=== PATIENT | male | born 1950 | race African-American/Black ===

== ENCOUNTER 2017-09-08 00:10 | Emergency (ER) | payer MEDICARE, BC ==
[~2017-09-08] VITALS: Ht 182.9 cm; Wt 70.0 kg
[2017-09-08 00:12] VITALS: BP 229/99; PULSE 85; RESP 16; TEMP 98.1; O2SAT 96
[2017-09-08] MEDS ORDERED: cloNIDine HCL 0.2 MG TAB PO ONE (00:45)
[2017-09-08 00:51] VITALS: BP 206/94; PULSE 83; RESP 18; O2SAT 97
[2017-09-08 01:30] VITALS: BP 186/86; PULSE 87; RESP 18; O2SAT 97
--- NOTE | 2017-09-08 01:30 | PD ---
HPI Chief Complaint: Hypertension Time Seen by Provider: 00:45 Travel History International Travel<30 days: No Contact w/Intl Traveler<30days: No Traveled to known affect area: No History of Present Illness HPI 66-year-old male came to the emergency room with his for hypertension and prescription refill. Patient says that they're from [place] and they came yesterday and patient forgot to bring his clonidine. His blood pressure in triage was 225 systolic. Patient denies any headache, chest pain or blurred vision. Patient has end-stage renal disease and got dialyzed yesterday morning. He is here to get kidney transplant. [facility] Past Medical History Narrative Medical List of his past medical, surgical, social and family history is reviewed from the nursing note. Cardiovascular Problems: Yes (HTN) Diabetes: Yes Patient Takes Glucophage: No Past Surgical History Cholecystectomy: Yes Genitourinary Surgery: Yes Other Surgery: Yes (THYROIDECTOMY) Social History Alcohol Use: No Tobacco Use: No Substance Use: No Allergies-Medications (Allergen,Severity, Reaction): Coded Allergies: No Known Allergies (Unverified Adverse Reaction, Unknown, 09/08/17) Comments No known drug allergies. Reported Meds & Prescriptions Reported Meds & Active Scripts Active Clonidine (Clonidine HCl) 0.1 Mg Tab 0.1 Mg PO BID PRN Narrative Medication List of his home medications reviewed from the nursing note. Review of Systems Except as stated in HPI: all other systems reviewed are Neg Physical Exam Narrative GENERAL: Awake, alert, no obvious distress SKIN: Focused skin assessment warm/dry. Right upper extremity shunt. HEAD: Atraumatic. Normocephalic. EYES: Pupils equal and round. No scleral icterus. No injection or drainage. ENT: No nasal bleeding or discharge. Mucous membranes pink and moist. NECK: Trachea midline. No JVD. CARDIOVASCULAR: Regular rate and rhythm. No murmur appreciated. RESPIRATORY: No accessory muscle use. Clear to auscultation. Breath sounds equal bilaterally. GASTROINTESTINAL: Abdomen soft, non-tender, nondistended. Hepatic and splenic margins not palpable. MUSCULOSKELETAL: No obvious deformities. No clubbing. No cyanosis. No edema. NEUROLOGICAL: Awake and alert. No obvious cranial nerve deficits. Motor grossly within normal limits. Normal speech. PSYCHIATRIC: Appropriate mood and affect; insight and judgment normal. Data Data Last Documented VS Orders Orders Clonidine (Catapres) (09/08/17 00:45) Ed Discharge Order (09/08/17 01:45) [facility] Medical Decision Making Medical Screen Exam Complete: Yes Emergency Medical Condition: Yes Medical Record Reviewed: Yes Differential Diagnosis Essential hypertension Narrative Course 1:43 AM patient was given 0.2 mg of clonidine. I was just told that his blood pressure is 185 systolic. Coming down from comfortable discharging him home. He will go home with one week of clonidine prescription. Procedures EKG Prior to Arrival: No Diagnosis Primary Impression: Essential hypertension Additional Impression: Noncompliance with medications Referrals: Primary Care Physician Additional Instructions: Please take your medications like is supposed to. I'm missing your blood pressure medications of her getting them would be disastrous since her blood pressure was very high today. Per the prescription and take it as prescribed. Med/Other Pt SpecificInfo: Prescription(s) given Scripts Clonidine (Clonidine) 0.1 Mg Tab 0.1 MG PO BID Y for SBP> OR = 180, DBP> OR = 100, #14 TAB 0 Refills Prov: Estephanie Hernández MD 09/08/17 Disposition: 01 DISCHARGE HOME Condition: Stable Estephanie Hernández MD Sep 08, 2017 01:30
[2017-09-08] MEDS ORDERED: CLON0.1T PO (01:45)
== END 2017-09-08 02:04 | disposition home or self-care (01) ==
LOC: NEPE 00:10
DX: Z76.0 Encounter for issue of repeat prescription (principal); E11.22 Type 2 diabetes mellitus with diabetic chronic kidney disease; I12.0 Hypertensive chronic kidney disease with stage 5 chronic kidney disease or end stage renal disease; N18.6 End stage renal disease; Z99.2 Dependence on renal dialysis
CPT/HCPCS: 99283

== ENCOUNTER 2018-04-23 21:26 | Inpatient (IN) ==
[2018-04-23] MEDS ORDERED: Acetaminophen 325 MG Tablet PO PRN (22:29)
--- NOTE | 2018-04-23 23:40 | P.HPIM ---
History of Present Illness Service: [facility] Hospitalists Primary Care Physician: UNKNOWN Chief Complaint: Mr. Carvajal is here for a kidney transplant History of Present Illness: Mr. Carvajal is a 67 year-old male with a history of ESRD, hypertension, and diet-controlled type 2 diabetes mellitus who presented to the hospital under the hospitalist service for renal transplant. The patient is seen in his hospital room. He reports that he has been on HD for 5 years and makes only drops of urine now. He denies any recent fever, chills, chest pain, shortness of breath, nausea, vomiting, diarrhea, or pain. - Diagnosis (1) End stage renal disease (2) Diabetes mellitus type 2, diet-controlled (3) History of hypertension - Inpatient Certification If this patient has been admitted as an Inpatient: I certify that the inpatient services were ordered in accordance with Medicare regulations governing the order. This includes certification that hospital inpatient services are reasonable and necessary and in the case of services not specified as inpatient-only under 42 CFR 419.22(n), that they are appropriately provided as inpatient services in accordance to with the 2-midnight benchmark under 43 CFR 412.3(e) Estimated Total Length of Stay (Days): 5 Plans for Post Hospital Care: Home Review of Systems All other systems reviewed negative except as stated in HPI [facility] - History History Provided By: Patient, Family Member - Medical History Medical History: Medical History (Last Updated 04/24/18 @ 00:31 by BOB Dominique) Diabetes mellitus type 2, diet-controlled (Chronic) End stage renal disease (Chronic) Renal osteodystrophy (Chronic) History of hepatitis C (Inactive) Diverticulosis (Chronic) History of bladder cancer (Inactive) History of thyroid cancer (Inactive) Hypertension - Surgical History Surgical History: Surgical History (Last Updated 04/24/18 @ 00:41 by BOB Dominique) History of bladder surgery AV fistula Onset Date: ~2013 History of laparoscopic cholecystectomy Onset Date: ~2014 History of lithotripsy History of thyroidectomy Onset Date: ~2014 - Family History Family History: Family History (Last Updated 04/24/18 @ 00:38 by BOB Dominique) Mother Family history of acute myocardial infarction Diabetes mellitus Father Family history of acute myocardial infarction - Tobacco History Second Hand Smoke Exposure: No Tobacco Use In Past 30 Days: No Smoking Status: Former smoker Tobacco Type: Cigarettes - Alcohol History How Often Do You Have a Drink Containing Alcohol: Never - Substance Use History Substance History: Past History (has not used since he returned from the [place]) Medications and Allergies Active Medications: Active Medications Acetaminophen (Tylenol) 650 mg PO Q4H PRN PRN Reason: Temp > 100.4 Bisacodyl (Dulcolax Supp) 10 mg RECTAL DAILY PRN PRN Reason: SEVERE CONSITIPATION Sodium Chloride (Ns Inj) 1,000 mls @ 40 mls/hr IV.CONT .Q24H MO Ondansetron HCl (Zofran Inj) 4 mg IV.PUSH Q6H PRN PRN Reason: NAUSEA OR VOMITING Sennosides (Senokot) 17.2 mg PO Q12H PRN PRN Reason: Moderate Constipation Allergies Allergy/AdvReac Type Severity Reaction Status Date / Time No Known Allergies AdvReac Unknown Uncoded 03/28/18 15:19 Home Medications Medication Instructions Recorded Confirmed Type B complex with C#20-folic acid 1 cap PO DAILY 04/23/18 04/23/18 History [[place] Caps] amlodipine 10 PO DAILY 04/23/18 History carvedilol 25 mg PO BID 04/23/18 04/23/18 History cinacalcet [Sensipar] 90 mg PO DAILY 04/23/18 04/23/18 History clonidine HCl 0.2 mg PO TID 04/23/18 04/23/18 History hydralazine 50 mg PO TID 04/23/18 04/23/18 History isosorbide dinitrate 10 mg PO TID 04/23/18 04/23/18 History levothyroxine 200 mcg PO DAILY 04/23/18 04/23/18 History pravastatin 20 mg PO DAILY 04/23/18 04/23/18 History sucroferric oxyhydroxide [Velphoro] 500 mg PO TID 04/23/18 04/23/18 History Exam Vital signs: Intake & Output 04/23/18 04/23/18 04/24/18 06:59 18:59 06:59 Weight 67 kg Other: Weight On Admission 67 kg - Constitutional no acute distress, average body habitus - Routine HEENT Exam Head: Present: normocephalic, atraumatic - Routine Neck Exam Present: supple. Absent: JVD - Routine Respiratory Exam Present: CTA bilaterally. Absent: wheezes, crackles - Routine Cardiovascular Exam Present: RRR, S1, S2. Absent: murmur - Routine Abdominal Exam Present: soft, normoactive bowel sounds. Absent: tenderness, distended - Routine Extremities Exam Present: pulses intact. Absent: edema - Routine Skin Exam Present: intact, dry, warm - Routine Neurological Exam Present: alert, oriented X3, normal speech Caprini VTE Risk Assessment Caprini VTE Risk Assessment: Moderate/High Risk (score >= 2) Caprini Risk Assessment Model: Point Value = 1 Point Value = 2 Point Value = 3 Point Value = 5 Age 41-60 Minor surgery BMI > 25 kg/m2 Swollen legs Varicose veins or History of unexplained or recurrent spontaneous Oral contraceptives or hormone replacement Sepsis (< 1 month) Serious lung disease, including pneumonia (< 1 month) Abnormal pulmonary function Acute myocardial infarction Congestive heart failure (< 1 month) History of inflammatory bowel disease Medical patient at bed rest Age 61-74 Arthroscopic surgery Major open surgery (> 45 min) Laparoscopic surgery (> 45 min) Malignancy Confined to bed (> 72 hours) Immobilizing plaster cast Central venous access Age >= 75 History of VTE Family history of VTE Factor V Leiden Prothrombin [id number] Lupus anticoagulant Anticardiolipin antibodies Elevated serum homocysteine Heparin-induced thrombocytopenia Other congenital or acquired thrombophilia Stroke (< 1 month) Elective arthroplasty Hip, pelvis, or leg fracture Acute spinal cord injury (< 1 month) Prophylaxis Regimen: Total Risk Factor Score Risk Level Prophylaxis Regimen 0-1 Low Early ambulation 2 Moderate Order ONE of the following: *Sequential Compression Device (SCD) *Heparin 5000 units SQ BID 3-4 Higher Order ONE of the following medications: *Heparin 5000 units SQ TID *Enoxaparin/Lovenox 40 mg SQ daily (WT < 150 kg, CrCl > 30 mL/min) *Enoxaparin/Lovenox 30 mg SQ daily (WT < 150 kg, CrCl > 10-29 mL/min) *Enoxaparin/Lovenox 30 mg SQ BID (WT < 150 kg, CrCl > 30 mL/min) AND/OR *Sequential Compression Device (SCD) 5 or more Highest Order ONE of the following medications: *Heparin 5000 units SQ TID (Preferred with Epidurals) *Enoxaparin/Lovenox 40 mg SQ daily (WT < 150 kg, CrCl > 30 mL/min) *Enoxaparin/Lovenox 30 mg SQ daily (WT < 150 kg, CrCl > 10-29 mL/min) *Enoxaparin/Lovenox 30 mg SQ BID (WT < 150 kg, CrCl > 30 mL/min) AND *Sequential Compression Device (SCD) Assessment and Plan - Assessment (1) End stage renal disease Code(s): N18.6 - End stage renal disease Status: Chronic (2) Diabetes mellitus type 2, diet-controlled Code(s): E11.9 - Type 2 diabetes mellitus without complications Status: Chronic (3) History of hypertension Code(s): Z86.79 - Personal history of other diseases of the circulatory system Status: Chronic - Plan Mr. Carvajal is a pleasant 67-year-old male with a history of end-stage renal disease, diet controlled type 2 diabetes mellitus, and hypertension who presented to [facility] for renal transplantation with admission to the [facility] hospitalist service. End-stage renal disease -Consult renal transplant team -Discussed case with Dr. Melton Type 2 Diabetes Mellitus - Accu-Cheks before meals and at bedtime with low-dose NovoLog sliding scale coverage - Hypoglycemia protocol - Monitor trends and blood glucose readings and adjust treatments as indicated Hypertension - resume home medications - monitor trends in blood pressure reading and adjust treatments accordingly DVT prophylaxis - SCDs/TEDs Discussed Condition With: Dr. Melton, RN, Dr. Dominguez, patient, and patient's H&P: Quality - VTE Deep Vein Thrombosis/Pulmonary Embolism Present on Admission: No
--- NOTE | 2018-04-23 23:57 | P.CON ---
History of Present Illness Service: Transplant Surgery Consult date: 04/23/18 Primary Care Provider: UNKNOWN Chief Complaint: Admit for possible donor renal transplant History of Present Illness: 67 yom with ESRD due to Htn/DM. Presents for possible donor renal transplant from an EBV+/ CMV+ donor that is deemed PHS high risk due to hemodilution. Last HD was Tuesday04/21/18 Review of Systems Comments: makes drops of urine only PMFSH - History History Provided By: Patient, Family Member - Medical History Medical History: Medical History (Last Updated 04/23/18 @ 23:59 by Jason Melton MD) Diabetes mellitus type 2, diet-controlled (Chronic) History of hypertension (Chronic) End stage renal disease (Chronic) Renal osteodystrophy (Chronic) History of hepatitis C (Inactive) Diverticulosis (Chronic) History of bladder cancer (Inactive) History of thyroid cancer (Inactive) - Surgical History Surgical History: Surgical History (Last Reviewed 04/23/18 @ 23:46 by Jason Melton MD) AV fistula Onset Date: ~2013 History of laparoscopic cholecystectomy Onset Date: ~2014 History of lithotripsy History of thyroidectomy Onset Date: ~2014 History of transurethral resection of prostate Onset Date: ~2013 - Family History Family History: Family History (Last Reviewed 04/23/18 @ 23:46 by Jason Melton MD) Mother Family history of acute myocardial infarction - Tobacco History Second Hand Smoke Exposure: No Tobacco Use In Past 30 Days: No Smoking Status: Former smoker Tobacco Type: Cigarettes Packs Per Day: 1 (1 PPD x 30 years) Years Smoked: 30 - Alcohol History How Often Do You Have a Drink Containing Alcohol: Never - Substance Use History Substance History: Past History Medications and Allergies Active Medications: Active Medications Acetaminophen (Tylenol) 650 mg PO Q4H PRN PRN Reason: Temp > 100.4 Bisacodyl (Dulcolax Supp) 10 mg RECTAL DAILY PRN PRN Reason: SEVERE CONSITIPATION Sodium Chloride (Ns Inj) 1,000 mls @ 40 mls/hr IV.CONT .Q24H MO Ondansetron HCl (Zofran Inj) 4 mg IV.PUSH Q6H PRN PRN Reason: NAUSEA OR VOMITING Sennosides (Senokot) 17.2 mg PO Q12H PRN PRN Reason: Moderate Constipation Allergies Allergy/AdvReac Type Severity Reaction Status Date / Time No Known Allergies AdvReac Unknown Uncoded 03/28/18 15:19 Home Medications Medication Instructions Recorded Confirmed Type B complex with C#20-folic acid 1 cap PO DAILY 04/23/18 04/23/18 History [[place] Caps] amlodipine 10 PO DAILY 04/23/18 History carvedilol 25 mg PO BID 04/23/18 04/23/18 History cinacalcet [Sensipar] 90 mg PO DAILY 04/23/18 04/23/18 History clonidine HCl 0.2 mg PO TID 04/23/18 04/23/18 History hydralazine 50 mg PO TID 04/23/18 04/23/18 History isosorbide dinitrate 10 mg PO TID 04/23/18 04/23/18 History levothyroxine 200 mcg PO DAILY 04/23/18 04/23/18 History pravastatin 20 mg PO DAILY 04/23/18 04/23/18 History sucroferric oxyhydroxide [Velphoro] 500 mg PO TID 04/23/18 04/23/18 History Physical Exam Vital signs: Intake & Output 04/23/18 04/23/18 04/24/18 06:59 18:59 06:59 Weight 67 kg Other: Weight On Admission 67 kg - Constitutional no acute distress - Routine HEENT Exam Head: Present: normocephalic, atraumatic Eye: Present: EOMI - Routine Neck Exam Present: supple, full ROM - Routine Respiratory Exam Present: CTA bilaterally - Routine Cardiovascular Exam Present: RRR, S1, S2 - Routine Abdominal Exam Present: soft, normoactive bowel sounds - Routine Exam Comments: No inguinal hernias or testicular masses noted - Routine Extremities Exam Present: pulses intact (No edema noted. No clubbing/ cyanosis/ or edema) Assessment and Plan - Assessment (1) Diabetes mellitus type 2, diet-controlled Code(s): E11.9 - Type 2 diabetes mellitus without complications Status: Chronic (2) History of hypertension Code(s): Z86.79 - Personal history of other diseases of the circulatory system Status: Chronic (3) End stage renal disease Code(s): N18.6 - End stage renal disease Status: Chronic Plan: Dutch Carvajal has ESRD secondary to htn/DM, and is being admitted for possible kidney transplantation. The patient will be consented for procedure and transfusion A PHS increased Risk Consent is required, and has been completed. A surgical consent has been completed.. The patient is being admitted to the Hospitalist Service. The Transplant Nephrology Service will be consulted. The patient will be assigned to Case Management/Inpatient Status.
[2018-04-24] MEDS ORDERED: ceFAZolin 2 GM IV; once IV.SIG SCH (00:30)
[2018-04-24] MEDS ORDERED: Dextrose 50% in Water 50 ML Vial IV.PUSH PRN ×2 (00:46→13:36)
[2018-04-24 00:49] LABS: Baso % (Auto) 0.8 % (0.0-2.0); Eos # (Auto) 0.3 th/mm3 (0.0-0.4); Eos % (Auto) 4.3 % (0.0-4.0); Hematocrit 31.2 % (39.0-51.0); Hemoglobin 10.5 gm/dL (13.0-17.0); Lymph # (Auto) 2.2 th/mm3 (1.0-4.8); Lymph % (Auto) 36.8 % (9.0-44.0); Mean Corpuscular HGB Conc 33.7 % (32.0-36.0); Mean Corpuscular Hemoglobin 32.7 pg (27.0-34.0); Mean Corpuscular Volume 97.1 fL (80.0-100.0); Mean Platelet Volume 8.9 fL (7.0-11.0); Mono # (Auto) 0.4 th/mm3 (0.0-0.9); Mono % (Auto) 6.5 % (0.0-8.0); Neut # (Auto) 3.1 th/mm3 (1.8-7.7); Neut % (Auto) 51.6 % (16.0-70.0); Platelet Count 177 th/mm3 (150-450); Red Blood Count 3.21 mil/mm3 (4.50-5.90); Red Cell Distribution Width 14.4 % (11.6-17.2); White Blood Count 5.9 th/mm3 (4.0-11.0)
[2018-04-24] MEDS ORDERED: ANTITHYMOCYTE IG IV.SIG SCH (01:00)
[2018-04-24] MEDS ORDERED: SODIUM CHLOR 0.9% IV.SIG SCH (01:00)
[2018-04-24] MEDS ORDERED: MethylPREDNISolone Sod Suc Inj 500 MG in Sodium Chlor 0.9% Inj 100 ML IV.SIG SCH (01:00)
[2018-04-24] MEDS ORDERED: amLODIPine 10 MG Tablet PO ONE (01:01)
[2018-04-24 01:05] LABS: Activated Partial Thrombo Time 28.1 sec (24.3-30.1); INR 1.1 Ratio; Prothrombin Time 11.4 sec (9.8-11.6)
[2018-04-24 01:08] LABS: Alkaline Phosphatase 67 U/L (45-117); Total Protein 7.6 g/dL (6.4-8.2)
[2018-04-24] MEDS ORDERED: hydrALAZINE 10 MG Tablet PO SCH (01:15)
[2018-04-24] MEDS ORDERED: Carvedilol 12.5 MG Tablet PO ONE (01:15)
[2018-04-24 01:25] LABS: Alanine Aminotransferase 20 U/L (12-78); Albumin 3.6 g/dL (3.4-5.0); Anion Gap 13 meq/L (5-15); Aspartate Aminotransferase 26 U/L (15-37); Blood Urea Nitrogen 56 mg/dL (7-18); Calcium 8.5 mg/dL (8.5-10.1); Carbon Dioxide 24.1 meq/L (21.0-32.0); Chloride 105 meq/L (98-107); Glomerular Filtration Rate 5 mL/min (>89); Glucose,Random 80 mg/dL (74-106); Potassium 4.7 meq/L (3.5-5.1); Sodium 142 meq/L (136-145)
--- NOTE | 2018-04-24 01:27 | XR ---
EXAM DATE: 04/24/2018 1:04 AM EDT AGE/SEX: 67 years / Male INDICATIONS: Short of breath. CLINICAL DATA: This is the patient's initial encounter. Patient reports that signs and symptoms have been present for 1 day and indicates a pain score of 0/10. MEDICAL/SURGICAL HISTORY: None. Umbilical hernia repair. COMPARISON: No prior exams available for comparison. FINDINGS: AP and lateral views of the chest demonstrate the lungs to be symmetrically aerated without evidence of mass, infiltrate or effusion. The heart is moderately enlarged with panchamber configuration. The central bronchopulmonary markings are well delineated.. Osseous structures are intact. CONCLUSION: 1. The lungs are clear. 2. Panchamber cardiomegaly. Electronically signed by: Kapil Dominguez MD 04/24/2018 1:26 AM EDT
[2018-04-24 02:20] LABS: Hepatitis A IgM Antibody Nonreactive (Nonreactive)
[2018-04-24 02:22] LABS: Hepatitits B Surface Antigen Nonreactive (Nonreactive)
[2018-04-24] MEDS: Sod Chloride 0.9% Inj 1,000 ML IV.CONT SCH ×2 (06:36→15:37)
[2018-04-24] MEDS ORDERED: Cisatracurium Inj 20 MG/10 ML Vial ONE ×2 (07:43→10:07)
[2018-04-24] MEDS ORDERED: MethylPREDNISolone Sod Succinate Inj 125 MG/2 ML Vial ONE ×2 (07:46→07:51)
[2018-04-24] MEDS ORDERED: Furosemide Inj 10 ML ONE (07:51)
[2018-04-24] MEDS ORDERED: Heparin - SQ 10,000 UNITS/ML Vial SQ ONE (07:51)
[2018-04-24] MEDS ORDERED: Heparin 10,000 UNITS/10 ML Vial (for IV use) ONE (07:52)
[2018-04-24] MEDS ORDERED: Insulin NovoLOG Aspart Correctional Sugar Inj SQ SCH (08:00)
[2018-04-24] MEDS: Vitamin B Complex/Vit C/Folic Tablet PO SCH (09:41)
[2018-04-24] MEDS: Carvedilol 12.5 MG Tablet PO SCH ×2 (09:41→20:23)
[2018-04-24] MEDS: amLODIPine 10 MG Tablet PO SCH (09:42)
[2018-04-24 09:49] LABS: ABG Base Excess -3.4 mmol/L (-2-2); ABG PCO2 38 mmHg (38-42); ABG PO2 239 mmHG (61-120)
[2018-04-24] MEDS ORDERED: Calcium Chloride Inj 1 GM/10 ML Syringe ONE (10:21)
--- NOTE | 2018-04-24 10:36 | ECG ---
Date Performed: 04/24/2018 Time Performed: 00:14:10 PTAGE: 67 years EKG: Sinus rhythm with 1st degree A-V block Left axis deviation Lateral T wave changes are nonspecific Abnormal ECG NO PREVIOUS TRACING DOCTOR: Juve Whitt Interpretating Date/Time 04/24/2018 10:35:19
--- NOTE | 2018-04-24 10:57 | P.PN ---
Subjective Interval history: Follow-up end-stage renal disease. Seen in PACU patient has no complaints. Discussed with nursing has required 3 doses of antihypertensives (IV labetalol and IV hydralazine). Case discussed with Dr. Melton Physical Exam Vital signs: Vital Signs 04/23/18 23:07 04/24/18 01:04 04/24/18 02:00 Temperature 98.1 F Pulse Rate 80 82 82 Respiratory Rate Blood Pressure 194/98 H Pulse Oximetry 95 04/24/18 03:00 04/24/18 04:00 04/24/18 05:00 Temperature 97.6 F Pulse Rate 75 79 75 Respiratory Rate Blood Pressure 175/96 H Pulse Oximetry 97 04/24/18 06:00 04/24/18 07:04 04/24/18 08:00 Temperature 97.8 F Pulse Rate 77 79 76 Respiratory Rate 14 Blood Pressure 184/99 H Pulse Oximetry 97 Intake & Output 04/23/18 04/24/18 04/24/18 18:59 06:59 18:59 Intake Total 120 / 120 Output Total 0 / 0 Balance 120 / 120 Weight 67 kg Intake: Oral 120 / 120 Output: Urine 0 / 0 Other: Weight On Admission 67 kg Narrative: - Constitutional no acute distress, average body habitus - Routine HEENT Exam Head: Present: normocephalic, atraumatic - Routine Neck Exam Present: supple. Absent: JVD - Routine Respiratory Exam Present: CTA bilaterally. Absent: wheezes, crackles - Routine Cardiovascular Exam Present: RRR, S1, S2. Absent: murmur - Routine Abdominal Exam Present: soft, normoactive bowel sounds. Absent: tenderness, distended dry dressing right lower with HARISH drain. Campbell catheter in place - Routine Extremities Exam Present: pulses intact. Absent: edema - Routine Skin Exam Present: intact, dry, warm - Routine Neurological Exam Present: alert, oriented X3, normal speech - Urinary Catheter Management Indwelling Urethral Catheter Cath placed during this visit: yes Urethral indwelling: Yes Reason for continuing: Hourly intake/output Insertion date: 04/24/18 Insertion time: 13:00 Results - Labs CBC & Chem 7: 04/24/18 14:30 04/24/18 14:30 Laboratory Results - last 24 hr 04/24/18 04/24/18 04/24/18 00:30 00:30 00:30 WBC 5.9 RBC 3.21 L Hgb 10.5 L Hct 31.2 L MCV 97.1 MCH 32.7 MCHC 33.7 RDW 14.4 Plt Count 177 MPV 8.9 Neut % (Auto) 51.6 Lymph % (Auto) 36.8 Lyon % (Auto) 6.5 Eos % (Auto) 4.3 H Baso % (Auto) 0.8 Neut # (Auto) 3.1 Lymph # (Auto) 2.2 Lyon # (Auto) 0.4 Eos # (Auto) 0.3 Baso # (Auto) 0.0 WBC Differential . Differential Comment Auto diff final PT 11.4 INR 1.1 APTT 28.1 Puncture Site Patient Temperature O2 Saturation ABG pH ABG pCO2 ABG pO2 ABG HCO3 ABG O2 Content ABG Base Excess ABG Methemoglobin Hemoglobin Carboxyhemoglobin O2 Delivery Device Inspired O2 Critical Value Sodium 142 Potassium 4.7 Chloride 105 Carbon Dioxide 24.1 Anion Gap 13 BUN 56 H Creatinine 12.31 H* Estimated GFR 5 L POC Glucose Random Glucose 80 Calcium 8.5 Total Bilirubin 0.5 AST 26 ALT 20 Alkaline Phosphatase 67 Total Protein 7.6 Albumin 3.6 Hepatitis A IgM Ab Hep Bs Antigen Hep B Core IgM Ab Hep C IgG Ab HIV 1&2 Ab/P24 Ag 4thGn Blood Type Blood Type Confirm Blood Type Recheck Antibody Screen MTS Gel Crossmatch Bld Prod Order Comment 04/24/18 04/24/18 04/24/18 00:30 00:30 00:34 WBC RBC Hgb Hct MCV MCH MCHC RDW Plt Count MPV Neut % (Auto) Lymph % (Auto) Lyon % (Auto) Eos % (Auto) Baso % (Auto) Neut # (Auto) Lymph # (Auto) Lyon # (Auto) Eos # (Auto) Baso # (Auto) WBC Differential Differential Comment PT INR APTT Puncture Site Patient Temperature O2 Saturation ABG pH ABG pCO2 ABG pO2 ABG HCO3 ABG O2 Content ABG Base Excess ABG Methemoglobin Hemoglobin Carboxyhemoglobin O2 Delivery Device Inspired O2 Critical Value Sodium Potassium Chloride Carbon Dioxide Anion Gap BUN Creatinine Estimated GFR POC Glucose Random Glucose Calcium Total Bilirubin AST ALT Alkaline Phosphatase Total Protein Albumin Hepatitis A IgM Ab Nonreactive Hep Bs Antigen Nonreactive Hep B Core IgM Ab Nonreactive Hep C IgG Ab Reactive H HIV 1&2 Ab/P24 Ag 4thGn Nonreactive Blood Type B Positive Blood Type Confirm B Positive Blood Type Recheck Not needed Antibody Screen Negative MTS Gel Crossmatch See Detail Bld Prod Order Comment 04/24/18 04/24/18 09:40 10:28 WBC RBC Hgb Hct MCV MCH MCHC RDW Plt Count MPV Neut % (Auto) Lymph % (Auto) Lyon % (Auto) Eos % (Auto) Baso % (Auto) Neut # (Auto) Lymph # (Auto) Lyon # (Auto) Eos # (Auto) Baso # (Auto) WBC Differential Differential Comment PT INR APTT Puncture Site Art line Patient Temperature 98.6 O2 Saturation 96 ABG pH 7.37 L ABG pCO2 38 ABG pO2 239 H ABG HCO3 21 L ABG O2 Content 14.0 ABG Base Excess -3.4 L ABG Methemoglobin 1.8 Hemoglobin 9.9 L Carboxyhemoglobin 1.2 O2 Delivery Device Ventilator Inspired O2 21 Critical Value No Sodium Potassium Chloride Carbon Dioxide Anion Gap BUN Creatinine Estimated GFR POC Glucose 121 H Random Glucose Calcium Total Bilirubin AST ALT Alkaline Phosphatase Total Protein Albumin Hepatitis A IgM Ab Hep Bs Antigen Hep B Core IgM Ab Hep C IgG Ab HIV 1&2 Ab/P24 Ag 4thGn Blood Type Blood Type Confirm Blood Type Recheck Antibody Screen MTS Gel Crossmatch Bld Prod Order Comment - Imaging Impressions Chest X-Ray 04/23/18 00:00 CONCLUSION: 1. The lungs are clear. 2. Panchamber cardiomegaly. - Procedures 1. donor renal transplant , with renal allograft to [facility]'s right iliac fossa.. please use 22 modifier due to case being much harder than average due to severe atherosclerosis of the iliac artery 2. Complex backbench preparation of right donor kidney 3. Placement of ureteral stent Assessment and Plan - Plan Mr. Carvajal is a pleasant 67-year-old male with a history of end-stage renal disease, diet controlled type 2 diabetes mellitus, and hypertension who presented to [facility] for renal transplantation with admission to the [facility] hospitalist service. End-stage renal disease on hemodialysis. Status post renal transplant. 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 Dc campbell and Pharmacological prophylaxis per transplant surgeon. Type 2 Diabetes Mellitus - Accu-Cheks before meals and at bedtime with low-dose NovoLog sliding scale coverage - Hypoglycemia protocol - Monitor trends and blood glucose readings and adjust treatments as indicated Hypertension - resume home medications Coreg and Norvasc. RN to verify home meds - monitor trends in blood pressure reading and adjust treatments accordingly. IV hydralazine and p.o. clonidine as needed DVT prophylaxis - SCDs/TEDs Progress Note: Quality - VTE Deep Vein Thrombosis/Pulmonary Embolism Present on Admission: No
[2018-04-24] MEDS ORDERED: Lidocaine PF 1% Inj 5 ML Syringe INFILTRATN ONE (12:00)
[2018-04-24] MEDS ORDERED: hydrALAZINE HCl Inj 20 MG/ML Vial IV.PUSH ONE (12:00)
[2018-04-24] MEDS ORDERED: Labetalol HCl Inj 100 MG/20 ML Vial IV.CONT ONE (12:00)
[2018-04-24] MEDS ORDERED: Phenylephrine/NS 1000 MCG/10ML Syringe IV.PUSH ONE (12:00)
[2018-04-24 12:43] LABS: ABG Base Excess -6.5 mmol/L (-2-2); ABG PCO2 37 mmHg (38-42); ABG PO2 223 mmHG (61-120)
[2018-04-24] MEDS ORDERED: Sodium Bicarbonate 8.4% Inj 50 MEQ/50 ML Syringe ONE (13:16)
[2018-04-24] MEDS ORDERED: Morphine Inj 4 MG/ML Vial IV.SIG ONE (13:36)
[2018-04-24] MEDS ORDERED: Naloxone Inj 0.4 MG/ML Vial IV.PUSH PRN (13:36)
[2018-04-24] MEDS ORDERED: Morphine Inj 30 MG/30 ML PCA.VIAL PCA PRN (13:36)
--- NOTE | 2018-04-24 14:11 | P.OP ---
- Preoperative Diagnosis (1) End stage renal disease (2) Diabetes mellitus type 2, diet-controlled - Postoperative Diagnosis (1) End stage renal disease Date of procedure: 04/24/18 Procedure: 1. donor renal transplant, right renal allograft to recipient's right lower quadrant. Please use 22 modifier as case was much harder than average due to severe atherosclerosis of iliac artery. 2. Back bench preparation of renal vessels and ureter 3. Back Bench venous reconstruction X 2 4. placement of ureteral stent. Implants: 6 Fr 12 cm double J ureteral stent from transplant graft into bladder Surgeon: Valentin Chance MD, 1st Socially Responsible Investment Adviser to Jaylen Melton MD Socially Responsible Investment Adviser: Valentin Chance Estimated blood loss (mL): 200 IV fluids (mL): 2,500 Pathology: none sent Operation and Findings: Intra-Op Findings: very atherosclerotic iliac arteries and distal aortal, good flow into and out of renal allograft after reperfusion After informed consent was obtained from the patient prior to surgery and the ABO was reviewed via primary source times two for each the recipient and donor prior to surgery today, the recipient was brought into the OR and safely placed under general endotracheal anesthesia after the debriefing was performed. The ABO verification form was in the room with the patient and the renal allograft. The DonorNet file was checked and the donor ABO verified X 2 and recorded onto the ABO form with the Candidate ABO verified X 2 in EPIC and recorded on the ABO verification form. The candidate's name was seen on the match run in DonorNet. As the anesthesia service was preparing the patient, we prepared the renal allograft on the back table by removing all extraneous connective tissue. There was a single artery, vein and ureter of sufficient length. Since this was a right kidney, the cephalad and caudal cava was stabled. The cephalad kidney stable line did not hold and we sutured it with prolene. I repaired two small openings in the renal vein proper with 6-0 prolend on BV needle. The kidney was stored in sterile ice with preservative solution and replaced in sterile container with top and in sterile bowel bag. The patient had a Hou catheter placed sterilely, and the abdomen was prepped and draped in the usual sterile fashion. We then did our standard surgical time out, reviewing the patient, allergies, antibiotics, operation to be performed, immunosuppression medications and ABO of the donor and recipient. All agreed and we proceeded. The anesthesia service acknowledged the administration of the IV Solumedrol 250 mg and Thymoglobulin infusion. We then made the right OR left lower quadrant oblique incision from an area about two centimeters medial to the anterior iliac spine to the pubic symphysis. We were able to go through the skin, subcutaneous tissue, fascia, and into the right retroperitoneal space. We repaired two small openings in the peritoneum. We kept the cord structures mobilized out of harm's way. We spared the epigastric vessels. We had excellent exposure of the common and external iliac artery and vein and carefully dissected these free of the nerve, keeping this lateral and out of harm's way. The artery was very atherosclerotic throughout its entire length from the distal aorta to the distal external iliac. We found two very small areas where we felt safest to clamp. The vein was deep but normal otherwise. We gave the patient 2,000 units of intravenous heparin, allowed this to circulate for three minutes. We used a Satinsky clamp on the iliac vein and opened the vein with the 11-blade, Degroot scissors, and Hepflush. We anastomosed the donor renal vein to the recipient right external iliac vein using 5-0 Prolene in our standard technique. When this venous anastomosis was completed, we went ahead and placed a DeBakey vascular clamp on the proximal common iliac artery and distal right external iliac artery, opened into the iliac artery with the 11-blade. The 4 arterial punch times four was used, so we had a nice opening of the anterior artery wall to accept the renal artery. The superior / superio-lateral wall was very disease, but intact. Then we used 6-0 Prolene, placing a cephalad and caudal stitch, and then we were able to anastomose the arteries under direct visualization. We needed to use a couple of interrupted sutures in the cephalad lateral position and were able to use a continuous suture the remainder of the anastomosis. When the arterial anastomosis was complete and tied, we went ahead and placed gentle vascular bull -dog clamps on the renal artery and renal vein proper, where we removed first the iliac vein clamps and allowed for flow across the venous anastomosis, and there was with excellent hemostasis. We then allowed for the distal artery to open. The anastomotic area opened nicely, signifying no technical issues. We then allowed for forward flow from the artery down the leg. There was excellent flow, again with no need for any suture repair across the anastomosis. We then removed the clamps from the renal artery and vein proper, allowed for flow into and out of the kidney, placed warm irrigation all around the kidney to allow it to go ahead and vasodilate nicely, and there was no need for any suture repairs. Hemostasis was obtained by the use of clips or ties as necessary. Electrocautery was used on the capsule as necessary. The kidney pinked up nicely. The patient was given our standard mannitol 25 gm as well as Lasix 100 mg IV and the second dose of Solumedrol 250 mg IV prior to reperfusion of the allograft. He tolerated this well. We then went ahead and placed the kidney into the right OR left iliac fossa. It laid nicely and had good color. We then repositioned our Bookwalter retractor and had good exposure of the bladder. The antibiotic irrigant was flushed into the bladder. The bladder distended very nicely into our field. After cutting the ureter to the correct length, we opened it to match the bladder opening, and then placed our 5-0 PDS suture at each end. We did place a ureteral stent into the transplant ureter into the collecting system and it laid nicely and then into the bladder. When this was completed we placed three Lembert type sutures of 5-0 PDS. We had good hemostasis. We irrigated again with antibiotic solution. Again the kidney laid nicely in the right iliac fossa. The vessels were laying nicely , with no signs of any obstruction either inflow or outflow. There was a good pulse in distal external iliac artery also as well as the renal artery. We went ahead and did the count as we prepared to close the fascia. The count was correct. We placed a #19 Blade drain through a new lateral superior stab site and sutured this in place with 2-0 nylon. We went ahead and closed the fascia with running #1 PDS suture starting from each end of the wound and tying in the middle. We then used subcuticular suture to approximate the skin. We had final instrument and sponge counts correct times two. Our warm ischemia time was about 54 minutes. I was scrubbed from skin incision to closure of fascia. Cornell Chance MD
[2018-04-24] MEDS ORDERED: fentaNYL Citrate Inj 100 MCG/2 ML Ampul ONE (14:29)
[2018-04-24] MEDS ORDERED: *morphine SULFATE 10 MG/ML PERIprocedure ONLY ONE (14:36)
[2018-04-24] MEDS ORDERED: Dextrose 5%/NaCl 0.225% Inj 1,000 ML ONE (14:50)
--- NOTE | 2018-04-24 14:56 | XR ---
EXAM DATE: 04/24/2018 2:53 PM EDT AGE/SEX: 67 years / Male INDICATIONS: Central line placement. CLINICAL DATA: This is the patient's subsequent encounter. Patient reports that signs and symptoms h ave been present for 1 day and indicates a pain score of Nonresponsive. MEDICAL/SURGICAL HISTORY: None. . Umbilical hernia repair. COMPARISON: C, CHEST 2V AP&LAT, 04/24/2018. . FINDINGS: Right neck central line descends into SVC. There is no evidence of pneumothorax or other complication of placement. There is consolidation in the left lung base securing the left diaphragm, likely with small associated effusion. Right lung is grossly clear. Cardiac contours are unchanged. CONCLUSION: Left base infiltrate and small effusion. Satisfactory central line position without pneumothorax. Electronically signed by: Miguel Dean MD 04/24/2018 2:55 PM EDT
[2018-04-24] MEDS ORDERED: Labetalol HCl Inj 100 MG/20 ML Vial ONE (15:13)
--- NOTE | 2018-04-24 15:14 | P.OP ---
- Preoperative Diagnosis (1) History of hypertension (2) Diabetes mellitus type 2, diet-controlled (3) End stage renal disease (4) History of bladder cancer - Postoperative Diagnosis (1) History of hypertension (2) Diabetes mellitus type 2, diet-controlled (3) End stage renal disease (4) History of bladder cancer Date of procedure: 04/24/18 Procedure: 1. donor renal transplant , with renal allograft to [facility]'s right iliac fossa.. please use 22 modifier due to case being much harder than average due to severe atherosclerosis of the iliac artery 2. Complex backbench preparation of right donor kidney 3. Placement of ureteral stent Anesthesia: KRYSTAL Surgeon: Jason Melton Jr, MD District [employer] Agent: Valentin Chance Estimated blood loss (mL): 200 IV fluids (mL): 2,500 Urine output (mL): 0 Operation and Findings: I Cold ischemic time: 6 hours 34 minutes Warm ischemic time: 54 minutes Intra-Op Findings: very atherosclerotic iliac arteries and distal aortal, with good flow into and out of renal allograft after reperfusion Informed consent was obtained from the patient prior to surgery and the ABO was reviewed via primary source for the recipient and donor prior to surgery today. Recipient was brought into the OR and safely placed under general endotracheal anesthesia after the debriefing was performed. The ABO verification form was in the room with the patient and the renal allograft. The DonorNet file was checked and the donor ABO verified X 2 and recorded onto the ABO form with the Candidate ABO verified X 2 and recorded on the ABO verification form. The candidate's name was seen on the match run in [employer]Net. As the anesthesia service was preparing the patient, we prepared the renal allograft on the back table by removing all extraneous connective tissue. There was a single artery, vein and ureter of sufficient length. Since this was a right kidney, the cephalad and caudal cava was stapled. The cephalad kidney staple line did not hold, so we sutured it with prolene. Dr Chance repaired two small openings in the renal vein proper with 6-0 prolene on a BV needle. The kidney was stored in sterile ice with preservative solution and replaced in sterile container with top and in a sterile bowel bag. The patient had a Hou catheter placed sterilely, and the abdomen was prepped and draped in the usual sterile fashion. We then did our standard surgical time out, reviewing the patient, allergies, antibiotics, operation to be performed, immunosuppression medications and ABO of the donor and recipient. All agreed and we proceeded. The anesthesia service acknowledged the administration of the IV Solumedrol 250 mg and Thymoglobulin infusion. We then made a right quadrant oblique incision from an area about two centimeters medial to the anterior iliac spine to the pubic symphysis. We were able to go through the skin, subcutaneous tissue, fascia, and into the right retroperitoneal space. We repaired two small openings in the peritoneum with vicryl suture. We kept the cord structures mobilized out of harm's way. We spared the epigastric vessels, although we ligated adn transected a superior branch. We had excellent exposure of the common and external iliac artery and vein and carefully dissected these free of the nerve, keeping this lateral and out of harm's way. The artery was very atherosclerotic throughout its entire length from the distal aorta to the distal external iliac. We found two very small areas where we felt safest to clamp. The vein was deep but normal otherwise. We gave the patient 2,000 units of intravenous heparin, and allowed this to circulate for three minutes. We then used a Satinsky clamp on the iliac vein and opened the vein with the 11-blade, Degroot scissors, and Hepflush. We anastomosed the donor renal vein to the recipient right external iliac vein using 5-0 Prolene in our standard technique. When this venous anastomosis was completed, we went ahead and placed a DeBakey vascular clamp on the proximal common iliac artery and distal right external iliac artery, opened into the iliac artery with the 11-blade. The 4 arterial punch was used x four, so we had a nice opening of the anterior artery wall to accept the renal artery. The superior / superio-lateral wall was very diseased, but intact. Then we used 6- 0 Prolene, placing a cephalad and caudal stitch, and then we were able to anastomose the arteries under direct visualization. We needed to use a couple of interrupted sutures in the cephalad lateral position and were able to use a continuous suture the remainder of the anastomosis. When the arterial anastomosis was complete and tied, we went ahead and placed gentle vascular bull -dog clamps on the renal artery and renal vein proper, where we removed first the iliac vein clamps and allowed for flow across the venous anastomosis, with excellent hemostasis. We then allowed for the distal artery to open. The anastomotic area opened nicely, signifying no technical issues. We then allowed for forward flow from the artery down the leg. There was excellent flow , again with no need for any suture repair across the anastomosis. We then removed the clamps from the renal artery and vein proper, allowing for flow into and out of the kidney, placed warm irrigation all around the kidney to allow it to go ahead and vasodilate nicely, and there was no need for any suture repairs. Hemostasis was obtained by the use of clips or ties as necessary. Electrocautery was used on the capsule as necessary. The kidney pinked up nicely. The patient was given our standard mannitol 25 gm as well as Lasix 100 mg IV and the second dose of Solumedrol 250 mg IV prior to reperfusion of the allograft. He tolerated this well. We then went ahead and placed the kidney into the right OR left iliac fossa. It laid nicely and had good color. We then repositioned the Bookwalter retractor and had good exposure of the bladder. The antibiotic irrigant was flushed into the bladder. The bladder distended very nicely into our field. After cutting the ureter to the correct length, we opened it to match the bladder opening, and then placed 5-0 PDS suture at each end. We did place a ureteral stent into the transplant ureter into the collecting system and it laid nicely and then into the bladder. When this was completed we placed three Lembert type sutures of 5-0 PDS. We had good hemostasis. We irrigated again with antibiotic solution. Again the kidney laid nicely in the right iliac fossa. The vessels were laying nicely , with no signs of any obstruction to either inflow or outflow. There was a good pulse in distal external iliac artery also as well as the renal artery. We went ahead and did the count as we prepared to close the fascia. The count was correct. We placed a #19 Nick drain through a new lateral superior stab site and sutured this in place with 2-0 nylon. We went ahead and closed the fascia with running #1 PDS suture starting from each end of the wound and tying in the middle. We then used subcuticular suture to approximate the skin. A TAMERA dressing was then applied We had final instrument and sponge counts correct times two. .
[2018-04-24 15:18] LABS: Baso % (Auto) 0.6 % (0.0-2.0); Eos % (Auto) 0.3 % (0.0-4.0); Hematocrit 28.4 % (39.0-51.0); Hemoglobin 9.5 gm/dL (13.0-17.0); Lymph % (Auto) 0.9 % (9.0-44.0); Mean Corpuscular HGB Conc 33.6 % (32.0-36.0); Mean Corpuscular Volume 98.2 fL (80.0-100.0); Mean Platelet Volume 8.7 fL (7.0-11.0); Mono % (Auto) 0.4 % (0.0-8.0); Neut # (Auto) 2.1 th/mm3 (1.8-7.7); Neut % (Auto) 97.8 % (16.0-70.0); Platelet Count 146 th/mm3 (150-450); Red Blood Count 2.89 mil/mm3 (4.50-5.90); Red Cell Distribution Width 14.8 % (11.6-17.2); White Blood Count 2.2 th/mm3 (4.0-11.0)
[2018-04-24] MEDS: Dextrose 5%/NaCl 0.45% Inj 1,000 ML IV.CONT SCH (15:35)
[2018-04-24 15:40] LABS: Calcium 7.2 mg/dL (8.5-10.1); Carbon Dioxide 18.3 meq/L (21.0-32.0); Magnesium 2.2 mg/dL (1.5-2.5); Phosphorus 6.5 mg/dL (2.5-4.9); Potassium 5.3 meq/L (3.5-5.1)
[2018-04-24] MEDS: Sodium Chloride 0.45 % Inj 1,000 ML IV.CONT PRN (16:00)
--- NOTE | 2018-04-24 16:02 | MH ---
cc: Cruz Abreu MD DATE OF ADMISSION: 04/23/2018 CHIEF COMPLAINT: The patient is admitted for cadaveric renal transplant. HISTORY OF PRESENT ILLNESS: This is a 67-year-old male with a past medical history of hypertension, diabetes mellitus, hepatitis C, history of bladder cancer, thyroid cancer, end-stage renal disease, was on hemodialysis for almost 5 years, was admitted for a cadaveric renal transplant. I was called to see the patient for the management of transplant. The patient was seen by me in the recovery room and also I discussed with the transplant surgeon, Dr. Melton, who did the surgery. The patient has been complaining of pain in the abdominal area but has no shortness of breath. His urine output is still on the lower side. The patient is getting the ATG. PAST MEDICAL HISTORY: Hypertension, diabetes mellitus, end-stage renal disease, was on hemodialysis, history of hepatitis C, history of bladder cancer. PAST SURGICAL HISTORY: Laparoscopic cholecystectomy, thyroidectomy, lithotripsy, TURP, AV fistula surgery. REVIEW OF SYSTEMS: The patient denies any headache, dizziness. No chest pain. No shortness of breath. Has abdominal pain and has some nausea. Seen in the recovery room. SOCIAL HISTORY: The patient has past history of smoking, smoked about 1 pack per day for 30 years. No history of heavy alcoholism. FAMILY HISTORY: Noncontributory. ALLERGIES: HE HAS NO KNOWN ALLERGIES. MEDICATIONS: Currently, he is on following medications: 1. Tylenol as needed. 2. Norvasc 10 mg once a day. 3. Dulcolax as needed. 4. Coreg 25 mg b.i.d. 5. Cefazolin 2 grams x1 dose. 6. Sensipar 90 mg once a day. 7. Clonidine 0.1 mg every 6 hours p.r.n. 8. Dextrose as needed. 9. Benadryl as needed. 10. Colace as needed. 11. Hydralazine 10 mg as needed. 12, Insulin sliding scale. 13. Synthroid 200 mcg once a day. 14. CellCept 1 gram daily. 15. Marcaine 0.4 mg p.r.n. 16. Zofran p.r.n. PHYSICAL EXAMINATION: GENERAL: Awake, alert. He is in moderate pain. VITAL SIGNS: His last blood pressure was 184/99, temperature is 97.8, oxygen saturation 97 percent. HEENT: Pupils are mid-constricted. Nonicteric sclerae. Conjunctivae are pale. NECK: Supple. JVD is not elevated. LUNGS: The patient has bilateral decreased air entry with occasional wheezing. HEART: S1, S2. Regular rate and rhythm. ABDOMEN: Distended. There is a dressing on the lower abdomen and is mildly tender. EXTREMITIES: He has mild edema and right arm has AV fistula. INVESTIGATIONS: WBC count is 2.2, hemoglobin 9.5, platelet count 146, neutrophils 97.8 percent. INR 1.1. Repeat BMP is pending, but the potassium was 6.3 at around 12:40 p.m. and glucose was 160. Before that the potassium was 4.7 around midnight. The BUN was 56 and creatinine was 1.3. Calcium was 8.5. AST, ALT normal. Total protein 7.6, albumin of 3.6. ASSESSMENT AND PLAN: 1. Post-cadaveric renal transplant. 2. Hypertension. 3. Diabetes mellitus. 4. Hyperkalemia. 5. Mild anemia. The patient has a cadaveric renal transplant. He is on ATG and CellCept. We will start Prograf later on since there is expected delayed graft function. Follow the repeat potassium level. There is no acute urgent need for dialysis. We will observe closely. He will be getting ultrasound Doppler to see his renal artery and vein and also to see if he has any collection around the kidney. The patient will be monitored closely. Thank you. MD MYESHA Gamboa/JOSIE , 03:30 PM , 04:00 PM
[2018-04-24 16:08] LABS: Total Protein 6.7 g/dL (6.4-8.2)
--- NOTE | 2018-04-24 16:34 | US ---
EXAM DATE: 04/24/2018 4:31 PM EDT AGE/SEX: 67 years / Male INDICATIONS: Post renal transplant. CLINICAL DATA: This is the patient's initial encounter. Patient reports that signs and symptoms have been present for 1 day and indicates a pain score of 0/10. MEDICAL/SURGICAL HISTORY: Diabetes. Renal disease, end stage. Hepatitis C. Diverticulosis. B ladder cancer. Thyroid cancer. HTN. Thyroidectomy. Cholecystectomy. AV fistula. Bladder surgery. Li thotripsy. COMPARISON: No prior exams available for comparison. MEASUREMENTS: Transplant Kidney:__6.4 x 3.3 x 4.4 cm Location:__Right lower quadrant Arcuate Arteries Resistive Index: Upper - 0.6 Mid - 0.7 Lower - 0.7 Main Renal Artery Velocity:__106.4 Main Renal Vein:__Patent External Iliac Artery Velocity:__201.6 cm/sec External Iliac Vein:__Patent cm/sec FINDINGS: Transplant Kidney: Normal echotexture and cortical thickness. No mass or hydronephrosis. No peritran splant fluid. Urinary Bladder: Hou catheter is present. Bladder decompressed. Other: None. CONCLUSION: 1. Unremarkable focused ultrasound of the right transplant kidney. Electronically signed by: Nick Bautista MD 04/24/2018 4:32 PM EDT
[2018-04-24] MEDS: Insulin NovoLOG Aspart Correctional Sugar Inj SQ SCH ×2 (17:25→20:39)
[2018-04-24] MEDS: hydrALAZINE HCl Inj 20 MG/ML Vial IV.PUSH PRN (17:38)
[2018-04-24] MEDS: Docusate Sodium 100 MG Capsule PO SCH (20:23)
[2018-04-25] MEDS: hydrALAZINE HCl Inj 20 MG/ML Vial IV.PUSH PRN ×3 (00:05→12:38)
[2018-04-25] MEDS: Insulin NovoLOG Aspart Correctional Sugar Inj SQ SCH ×6 (00:56→20:15)
[2018-04-25 06:20] LABS: Eos % (Auto) 0.1 % (0.0-4.0); Hematocrit 23.7 % (39.0-51.0); Hemoglobin 8.2 gm/dL (13.0-17.0); Lymph # (Auto) 0.1 th/mm3 (1.0-4.8); Lymph % (Auto) 1.7 % (9.0-44.0); Mean Corpuscular HGB Conc 34.6 % (32.0-36.0); Mean Corpuscular Hemoglobin 33.8 pg (27.0-34.0); Mean Corpuscular Volume 97.7 fL (80.0-100.0); Mean Platelet Volume 9.1 fL (7.0-11.0); Mono # (Auto) 6.2 th/mm3 (0.0-0.9); Mono % (Auto) 82.1 % (0.0-8.0); Neut # (Auto) 1.2 th/mm3 (1.8-7.7); Neut % (Auto) 16.1 % (16.0-70.0); Platelet Count 119 th/mm3 (150-450); Red Blood Count 2.43 mil/mm3 (4.50-5.90); Red Cell Distribution Width 14.9 % (11.6-17.2); White Blood Count 7.6 th/mm3 (4.0-11.0)
[2018-04-25 06:51] LABS: Calcium 7.6 mg/dL (8.5-10.1); Carbon Dioxide 18.2 meq/L (21.0-32.0); Magnesium 2.2 mg/dL (1.5-2.5); Phosphorus 6.7 mg/dL (2.5-4.9); Potassium 6.1 meq/L (3.5-5.1)
[2018-04-25] MEDS ORDERED: Calcium Chloride Inj 1 GM/10 ML Syringe ONE (08:16)
[2018-04-25] MEDS ORDERED: Dextrose 50% in Water Syringe 50 ML ONE (08:21)
[2018-04-25] MEDS: Carvedilol 12.5 MG Tablet PO SCH ×2 (08:55→20:06)
[2018-04-25] MEDS: amLODIPine 10 MG Tablet PO SCH (08:56)
[2018-04-25] MEDS: Docusate Sodium 100 MG Capsule PO SCH ×2 (08:56→20:06)
[2018-04-25] MEDS: Vitamin B Complex/Vit C/Folic Tablet PO SCH (08:57)
[2018-04-25] MEDS ORDERED: Epoetin Alfa Inj 4,000 UNIT/ML Vial SQ ONE (09:00)
[2018-04-25] MEDS ORDERED: Sodium Polystyrene Sulfonate/Sorbitol Liq 15 GM/60 ML UDC PO ONE (09:00)
[2018-04-25] MEDS: Sod Chloride 0.9% Inj 1,000 ML IV.CONT SCH (09:24)
[2018-04-25] MEDS ORDERED: Dextrose 50% in Water 50 ML Vial IV.PUSH ONE ×2 (09:30→11:15)
[2018-04-25] MEDS ORDERED: Hydrocortisone Sod Succinate 100 MG Vial IV.PUSH PRN (09:57)
[2018-04-25] MEDS ORDERED: MethylPREDNISolone Sod Succinate Inj 125 MG/2 ML Vial IV.PUSH ONE (10:00)
[2018-04-25] MEDS ORDERED: Acetaminophen 325 MG Tablet PO ONE (10:00)
[2018-04-25] MEDS ORDERED: Calcium Chloride Inj 1 GM in Sodium Chlor 0.9% Inj 100 ML IV.SIG ONE (10:00)
[2018-04-25 10:15] LABS: Monocytes 2 % (0-8)
[2018-04-25 10:16] LABS: Acanthocytes Occ; Platelet Morphology Normal (Normal)
[2018-04-25] MEDS ORDERED: SODIUM CHLOR 0.9% IV.SIG ONE (11:00)
[2018-04-25] MEDS ORDERED: ANTITHYMOCYTE IG IV.SIG ONE (11:00)
[2018-04-25] MEDS: Labetalol HCl Inj 100 MG/20 ML Vial IV.PUSH PRN ×2 (11:15→11:44)
[2018-04-25] MEDS ORDERED: Labetalol HCl Inj 100 MG/20 ML Vial ONE (11:17)
--- NOTE | 2018-04-25 11:49 | US ---
EXAM DATE: 04/25/2018 11:21 AM EDT AGE/SEX: 67 years / Male INDICATIONS: Hematuria. CLINICAL DATA: This is the patient's subsequent encounter. Patient reports that signs and symptoms h ave been present for 1 day and indicates a pain score of 8/10. MEDICAL/SURGICAL HISTORY: . Diabetes. Renal disease, end stage. Hepatitis C. Diverticulosis. Bl adder cancer. Thyroid cancer. HTN. . Thyroidectomy. Cholecystectomy. AV fistula. Bladder surgery. Li thotripsy. [place] [facility] [place]. . MEASUREMENTS: Transplant Kidney:__8.5 x 6.0 x 4.2 cm Location:__Right lower quadrant Arcuate Arteries Resistive Index: Upper - 0.7 Mid - 0.7 Lower - 0.6 Main Renal Artery Velocity:__81 Main Renal Vein:__Patent External Iliac Artery Velocity:__308 cm/sec previously 202 cm/s External Iliac Vein:__Patent cm/sec FINDINGS: Transplant Kidney: Normal echotexture and cortical thickness. No mass or hydronephrosis. No peritran splant fluid. Urinary Bladder: Hou catheter is present. Bladder decompressed. Other: None. CONCLUSION: 1. Unremarkable ultrasound examination of the right lower quadrant transplant kidney. 2. Elevated external iliac artery velocities which appear significantly increased from yesterday's e xam. This may be artifactual due to technique. However, developing external iliac artery stenosis can not be excluded. Electronically signed by: Gamal Sadler MD 04/25/2018 11:48 AM EDT
[2018-04-25 12:31] LABS: Reticulocyte Percent 1.6 % (0.4-3.0)
[2018-04-25 13:15] LABS: Calcium 7.9 mg/dL (8.5-10.1); Carbon Dioxide 20.3 meq/L (21.0-32.0); Potassium 4.9 meq/L (3.5-5.1)
[2018-04-25 14:24] LABS: % Iron Saturation 7.8 % (20-50)
--- NOTE | 2018-04-25 14:40 | P.PNTS ---
Subjective Interval history: No new c/o. Pain well controlled. Denies N/V. Hungry Physical Exam Vital signs: Vital Signs 04/24/18 14:23 04/24/18 14:30 04/24/18 14:45 Temperature 97.6 F Pulse Rate 80 78 83 Respiratory Rate 10 L 18 18 Blood Pressure 181/86 H 171/80 H 186/116 H Pulse Oximetry 100 100 100 04/24/18 15:00 04/24/18 15:15 04/24/18 15:30 Temperature Pulse Rate 86 88 87 Respiratory Rate 23 15 17 Blood Pressure 177/82 H 181/84 H 165/85 H Pulse Oximetry 100 100 99 04/24/18 15:56 04/24/18 16:00 04/24/18 16:15 Temperature 98.4 F Pulse Rate 90 90 94 H Respiratory Rate 12 13 16 Blood Pressure 162/82 H 151/79 H 172/88 H Pulse Oximetry 98 97 98 04/24/18 17:00 04/24/18 17:14 04/24/18 17:41 Temperature 98.1 F Pulse Rate 92 H Respiratory Rate 16 Blood Pressure 172/80 H Pulse Oximetry 92 L 93 L 94 L 04/24/18 19:00 04/24/18 20:00 04/24/18 21:52 Temperature Pulse Rate 98 H 98 H Respiratory Rate Blood Pressure 165/99 H Pulse Oximetry 97 04/24/18 23:00 04/25/18 00:00 04/25/18 03:00 Temperature 98.7 F 99.4 F Pulse Rate 92 H 93 H 91 H Respiratory Rate 24 24 Blood Pressure 176/105 H 169/100 H Pulse Oximetry 97 96 04/25/18 04:00 04/25/18 07:00 04/25/18 07:54 Temperature 99 F Pulse Rate 91 H 93 H Respiratory Rate 16 Blood Pressure 171/98 H 169/86 H Pulse Oximetry 96 Intake & Output 04/24/18 04/25/18 04/25/18 18:59 06:59 18:59 Intake Total 2500 / 2500 742 / 742 Output Total 527 / 527 143 / 143 Balance 1972 599 / 599 Weight 72.1 kg Intake: Oral 120 / 120 Anesthesia Amount 2500 / 2500 Other 622 / 622 Output: Estimated Blood Loss 200 / 200 Urine Amount (Catheter) 107 / 107 143 / 143 Indwelling Urethral Catheter 107 / 107 143 / 143 Wound Drainage 220 / 220 # 1 Right Abdomen Nick 220 / 220 Other: Bladder Irrigation Fluid - Amount Instilled Indwelling Urethral Catheter 60 Bladder Irrigation Fluid - Amount Drained Indwelling Urethral Catheter 60 Date of Last Bowel Movement 04/22/18 - Constitutional no acute distress - Routine HEENT Exam Head: Present: normocephalic, atraumatic - Routine Cardiovascular Exam Present: RRR, S1, S2 - Routine Abdominal Exam Present: soft Comments: Abd soft. hypoactive BS, dressing with minimal staining. Approp tender. - Routine Extremities Exam Present: pulses intact Comments: No edema noted. - Routine Skin Exam Present: intact, warm - Routine Neurological Exam Present: alert, oriented X3 - Routine Psychiatric Exam Present: normal affect, normal thought process - Urinary Catheter Management Indwelling Urethral Catheter Cath placed during this visit: yes Urethral indwelling: Yes Reason for continuing: Hourly intake/output Insertion date: 04/24/18 Insertion time: 13:00 Results - Labs CBC & Chem 7: 04/25/18 05:30 04/25/18 12:04 Laboratory Results - last 24 hr 04/24/18 04/24/18 04/24/18 00:30 14:30 14:30 WBC 2.2 L D RBC 2.89 L Hgb 9.5 L Hct 28.4 L MCV 98.2 MCH 33.0 MCHC 33.6 RDW 14.8 Plt Count 146 L MPV 8.7 Prelim Diff (Auto) Neut % (Auto) 97.8 H Lymph % (Auto) 0.9 L [place] % (Auto) 0.4 Eos % (Auto) 0.3 Baso % (Auto) 0.6 Neut # (Auto) 2.1 Lymph # (Auto) 0.0 L [place] # (Auto) 0.0 Eos # (Auto) 0.0 Baso # (Auto) 0.0 WBC Differential . Seg Neuts % (Manual) Band Neuts % (Manual) Monocytes % (Manual) Abs Neuts (Manual) Differential Comment Auto diff final Platelet Estimate Platelet Morphology Acanthocytes (Spur) Retic Count Absolute Retic Sodium 143 Potassium 5.3 H D Chloride 108 H Carbon Dioxide 18.3 L Anion Gap 17 H BUN 59 H Creatinine 11.92 H* Estimated GFR 5 L POC Glucose Random Glucose 190 H D Calcium 7.2 L* D Prot Corrected Calcium 7.4 L* Phosphorus 6.5 H Magnesium 2.2 Total Protein 6.7 D Blood Type B Positive Blood Type Recheck Not needed Antibody Screen Negative MTS Gel Crossmatch See Detail Bld Prod Order Comment 04/24/18 04/24/18 04/24/18 14:32 16:55 20:30 WBC RBC Hgb Hct MCV MCH MCHC RDW Plt Count MPV Prelim Diff (Auto) Neut % (Auto) Lymph % (Auto) [place] % (Auto) Eos % (Auto) Baso % (Auto) Neut # (Auto) Lymph # (Auto) [place] # (Auto) Eos # (Auto) Baso # (Auto) WBC Differential Seg Neuts % (Manual) Band Neuts % (Manual) Monocytes % (Manual) Abs Neuts (Manual) Differential Comment Platelet Estimate Platelet Morphology Acanthocytes (Spur) Retic Count Absolute Retic Sodium Potassium Chloride Carbon Dioxide Anion Gap BUN Creatinine Estimated GFR POC Glucose 160 H 180 H 135 H Random Glucose Calcium Prot Corrected Calcium Phosphorus Magnesium Total Protein Blood Type Blood Type Recheck Antibody Screen MTS Gel Crossmatch Bld Prod Order Comment 04/25/18 04/25/18 04/25/18 00:46 03:21 05:30 WBC 7.6 D RBC 2.43 L Hgb 8.2 L Hct 23.7 L MCV 97.7 MCH 33.8 MCHC 34.6 RDW 14.9 Plt Count 119 L MPV 9.1 Prelim Diff (Auto) Slide review pending Neut % (Auto) 16.1 Lymph % (Auto) 1.7 L [place] % (Auto) 82.1 H Eos % (Auto) 0.1 Baso % (Auto) 0.0 Neut # (Auto) 1.2 L Lymph # (Auto) 0.1 L [place] # (Auto) 6.2 H Eos # (Auto) 0.0 Baso # (Auto) 0.0 WBC Differential Manual diff final Seg Neuts % (Manual) 55 Band Neuts % (Manual) 43 H Monocytes % (Manual) 2 Abs Neuts (Manual) 7.4 Differential Comment . Platelet Estimate Low L Platelet Morphology Normal Acanthocytes (Spur) Occ H Retic Count Absolute Retic Sodium Potassium Chloride Carbon Dioxide Anion Gap BUN Creatinine Estimated GFR POC Glucose 71 69 Random Glucose Calcium Prot Corrected Calcium Phosphorus Magnesium Total Protein Blood Type Blood Type Recheck Antibody Screen MTS Gel Crossmatch Bld Prod Order Comment 04/25/18 04/25/18 04/25/18 05:30 05:30 08:02 WBC RBC Hgb Hct MCV MCH MCHC RDW Plt Count MPV Prelim Diff (Auto) Neut % (Auto) Lymph % (Auto) [place] % (Auto) Eos % (Auto) Baso % (Auto) Neut # (Auto) Lymph # (Auto) [place] # (Auto) Eos # (Auto) Baso # (Auto) WBC Differential Seg Neuts % (Manual) Band Neuts % (Manual) Monocytes % (Manual) Abs Neuts (Manual) Differential Comment Platelet Estimate Platelet Morphology Acanthocytes (Spur) Retic Count 1.6 Absolute Retic 39.8 Sodium 138 Potassium 6.1 H D Chloride 105 Carbon Dioxide 18.2 L Anion Gap 15 BUN 71 H Creatinine 13.24 H* D Estimated GFR 5 L POC Glucose 123 H Random Glucose 91 Calcium 7.6 L Prot Corrected Calcium Phosphorus 6.7 H Magnesium 2.2 Total Protein Blood Type Blood Type Recheck Antibody Screen MTS Gel Crossmatch Bld Prod Order Comment 04/25/18 04/25/18 12:04 12:09 WBC RBC Hgb Hct MCV MCH MCHC RDW Plt Count MPV Prelim Diff (Auto) Neut % (Auto) Lymph % (Auto) [place] % (Auto) Eos % (Auto) Baso % (Auto) Neut # (Auto) Lymph # (Auto) [place] # (Auto) Eos # (Auto) Baso # (Auto) WBC Differential Seg Neuts % (Manual) Band Neuts % (Manual) Monocytes % (Manual) Abs Neuts (Manual) Differential Comment Platelet Estimate Platelet Morphology Acanthocytes (Spur) Retic Count Absolute Retic Sodium 140 Potassium 4.9 D Chloride 105 Carbon Dioxide 20.3 L Anion Gap 15 BUN 72 H Creatinine 13.29 H* Estimated GFR 5 L POC Glucose 87 Random Glucose 63 L Calcium 7.9 L Prot Corrected Calcium Phosphorus Magnesium Total Protein Blood Type Blood Type Recheck Antibody Screen MTS Gel Crossmatch Bld Prod Order Comment - Imaging Impressions Chest X-Ray 04/24/18 13:36 CONCLUSION: Left base infiltrate and small effusion. Satisfactory central line position without pneumothorax. Renal Ultrasound 04/24/18 13:36 CONCLUSION: 1. Unremarkable focused ultrasound of the right transplant kidney. Renal Ultrasound 04/25/18 00:00 CONCLUSION: 1. Unremarkable ultrasound examination of the right lower quadrant transplant kidney. 2. Elevated external iliac artery velocities which appear significantly increased from yesterday's exam. This may be artifactual due to technique. However, developing external iliac artery stenosis cannot be excluded. - Procedures 1. donor renal transplant , with renal allograft to [facility] right iliac fossa.. please use 22 modifier due to case being much harder than average due to severe atherosclerosis of the iliac artery 2. Complex backbench preparation of right donor kidney 3. Placement of ureteral stent Assessment and Plan - Assessment (1) Diabetes mellitus type 2, diet-controlled Code(s): E11.9 - Type 2 diabetes mellitus without complications Status: Chronic (2) History of hypertension Code(s): Z86.79 - Personal history of other diseases of the circulatory system Status: Chronic (3) End stage renal disease Code(s): N18.6 - End stage renal disease Status: Chronic - Plan Post op Day: 1 Patient: Mr Carvajal is status post DDKT for ESRD secondary to DM/htn. US x 2 postop, shows patent vessels and reasonable RIs Prophylaxis: Decubitus ulcer: patient awake, alert, and mobile CMV prophylaxis with valcyte: Not yet started PCP prophylaxis: Not yet started Consults: Transplant Nephrology Assessment and Plan: S/P DDKT to right iliac fossa. Allograft function: currently with elevated creatinine and potassium. Potassium responded to medical treatment thus far (decreased from 6.1 to 4.9). [place] started. Weight up to 72.1 kg from 67 with some persistent htn. Will give 40 mg lasix . Will start low dose prograf (2 mg). Start diabetic clears today. Continue insulin sliding scale. Will continue daily standing weight. B SCDs. Approx 1 mg/kg thymo to be administered today. Immunosuppression: Thymo induction; Maint: steroids + Cellcept 1000 mg BID + Tacrolimus 2 mg BID
[2018-04-25] MEDS: Dextrose 5%/NaCl 0.45% Inj 1,000 ML IV.CONT SCH (15:07)
[2018-04-25] MEDS ORDERED: Calcium Chloride Inj 1 GM/10 ML Syringe IV.SIG ONE (15:45)
--- NOTE | 2018-04-25 16:13 | P.DIET ---
Nutritional Evaluation Type of nutrition evaluation: initial Screening comments: Initial Nutrition Assessment for kidney transplant pt. Subjective Subjective Comments: Pt verbalized no complaints during rounds this morning. Objective - Diagnosis Kidney Transplant - Objective % IBW: 83 Body Weight Used for Calculations: Actual Energy Needs - Lower Range (kCal/kg): 30 Energy Needs - Upper Range (kCal/kg): 35 Lower Limit kCal/kg (kCals): 2,010 Upper Limit kCal/kg (kCals): 2,345 Lower Limit Protein Factor (Grams per Kg): 1.2 Upper Limit Protein Factor (Grams per Kg): 1.5 Lower Protein Needs (Protein): 74 Upper Protein Needs (Protein): 101 Dietitian Reviewed in Medical Record: Current diet, Curent medications, Intake & Output, Labs, Medical history Diet Order: Clear Liquid Objective Comments: Pt's nutritional needs based on 67kg PMH: Hypertension, diabetes mellitus, end-stage renal disease, was on hemodialysis, history of hepatitis C, history of bladder cancer. Labs include: Hgb 8.2, Hct 23.7, Cr 13.29, K+ 4.9, Phos 6.7, Iron 19, TIBC 244, % sat 7.8 UOP: 250mls Assessment Assessment: Pt at nutritional risk r/t current clinical status. Pt s/p DDKT on 04/24 for ESRD secondary to DM/HTN. Noted UOP, K+ improvement, reviewed US of R kidney, pt started on CL diet today. Pt's nutritional needs as assessed above. Will monitor diet advancement, kidney function with the transplant team. Pt will be educated on nutrition guidelines prior to discharge. Recommendations: Pt s/p DDKT on 04/24 Pt started CL diet today Dietitian will monitor diet advancement, po intake, kidney function Diet education prior to discharge. Dietitian to Monitor: Lab values, Renal labs, Intake & Output, Weight change, PO Intake, Diet advancement
[2018-04-25] MEDS: hydrALAZINE 50 MG Tablet PO SCH (17:37)
--- NOTE | 2018-04-25 20:00 | P.CONCC ---
History of Present Illness Primary Care Provider: UNKNOWN Chief Complaint: Mr. Carvajal is here for a kidney transplant History of Present Illness: 67 year-old male with a history of ESRD, hypertension, and diet-controlled type 2 diabetes mellitus who presented to the hospital under the hospitalist service for renal transplant. He has been on HD for 5 years and makes only drops of urine now. He denies any recent fever, chills, chest pain, shortness of breath , nausea, vomiting, diarrhea, or pain. He underwent renal transplantation today and post procedure he was found to have elevated blood pressure on and off difficult to control. Review of Systems Constitutional: Denies anorexia, Denies body ache(s), Denies chills, Denies daytime sleepiness, Denies excessive sweating, Denies fatigue, Denies fever(s), Denies headache(s), Denies increased appetite, Denies lack of energy, Denies malaise, Denies night sweats, Denies weakness, Denies weight gain, Denies weight loss, Denies other Eyes: Denies blind spots, Denies blurry vision, Denies bulging eyes, Denies change in vision, Denies double vision, Denies discharge, Denies dry eyes, Denies floaters, Denies irritation, Denies itchy eyes, Denies loss of vision, Denies pain, Denies requires corrective lenses, Denies sensitivity to light, Denies other Ears, Nose, Mouth, and Throat: Denies abnormal hearing, Denies bleeding gums, Denies bad breath, Denies change in voice, Denies dental pain, Denies difficulty swallowing, Denies dizziness, Denies dry mouth, Denies ear discharge , Denies ear pain, Denies facial pain, Denies headache(s), Denies hearing loss, Denies hoarseness, Denies lip swelling, Denies nosebleed, Denies mouth lesions, Denies mouth pain, Denies nasal congestion, Denies nasal discharge, Denies nasal obstruction, Denies nasal trauma, Denies neck lump, Denies neck pain, Denies nose pain, Denies pain with swallowing, Denies poor balance, Denies post nasal drip, Denies ringing in the ears, Denies sinus pain, Denies sinus pressure , Denies sore throat, Denies throat swelling, Denies tongue swelling, Denies other Cardiovascular: Denies chest pain, Denies chest pain at rest, Denies chest pain with activity, Denies excessive sweating, Denies fainting, Denies fast heart rate, Denies foot swelling, Denies generalized swelling, Denies irregular heart rhythm, Denies leg pain with activity, Denies leg sores, Denies leg swelling, Denies lightheadedness, Denies radiating jaw, neck or arm pain, Denies rapid, pounding, or irregular heartbeat, Denies shortness of breath, Denies shortness of breath with activity, Denies shortness of breath when lying down, Denies shortness of breath causing sudden awakening, Denies slow heart rate, Denies other Respiratory: Denies change in phlegm color, Denies chest congestion, Denies cough, Denies coughing up blood, Denies excessive phlegm production, Denies pain on inspiration, Denies pain with cough, Denies shortness of breath, Denies shortness of breath with activity, Denies snoring, Denies stridor, Denies wheezing, Denies other Gastrointestinal: Denies abdominal pain, Denies belching, Denies black, tarry stools, Denies bloating, Denies bright, red blood in stools, Denies change in bowel habits, Denies constant urge to pass stool, Denies change in stools, Denies coffee ground vomit, Denies constipation, Denies cramping, Denies difficulty swallowing, Denies excessive passing of gas, Denies feeling full early, Denies heartburn, Denies incontinent of stools, Denies loose stools, Denies nausea, Denies pain with swallowing, Denies vomiting, Denies vomiting blood, Denies other Genitourinary: Reports decreased urination, Denies blood in semen, Denies blood in urine, Denies difficulty urinating, Denies difficulty with ejaculations, Denies erectile dysfunction, Denies genital lesions, Denies genital pain, Denies painful urination, Denies side pain, Denies frequent nighttime urination , Denies painful ejaculations, Denies penile discharge, Denies scrotal swelling , Denies testicle lump, Denies testicle pain, Denies urinary frequency, Denies urinary hesitancy, Denies urinary incontinence, Denies urinary urgency, Denies other Musculoskeletal: Denies abnormal walking, Denies back pain, Denies body aches, Denies decreased muscle mass, Denies deformity, Denies joint pain, Denies joint swelling, Denies limited joint movement, Denies loss of height, Denies muscle cramps, Denies muscle weakness, Denies neck pain, Denies numbness, Denies radiating pain into limb, Denies stiffness, Denies tingling, Denies other Skin/Breast: Denies acne, Denies bleeding lesions, Denies boil, Denies breast swelling, Denies breast skin changes, Denies breast pain, Denies breast lump, Denies change in breast shape, Denies change in hair, Denies change in skin color, Denies changing lesions, Denies dry skin, Denies excessive hair growth, Denies hair loss, Denies itching, Denies lesions, Denies nail changes, Denies new lesions, Denies nipple discharge, Denies non-healing lesions, Denies redness , Denies sensitivity to light, Denies rash, Denies skin pain, Denies skin ulcer , Denies sores, Denies stretch akhtar, Denies unusual bruising, Denies wounds, Denies yellowing of the skin, Denies other Neurologic: Denies abnormal hearing, Denies abnormal movements, Denies abnormal speech, Denies abnormal walking, Denies behavioral changes, Denies burning sensations, Denies confusion, Denies dizziness, Denies fainting, Denies frequent falls, Denies headache(s), Denies lack of coordination, Denies localized weakness, Denies loss of vision, Denies memory loss, Denies numbness, Denies other visual disturbances, Denies radiating pain, Denies restless legs, Denies convulsions, Denies seizure-like activity, Denies sensory deficit, Denies tingling, Denies tingling/numbness/burning sensations, Denies tremor(s), Denies unsteadiness, Denies weakness, Denies other Psychiatric: Denies abnormal sleep pattern, Denies anxiety, Denies behavioral changes, Denies change in appetite, Denies change in sex drive, Denies confusion , Denies depression, Denies difficulty concentrating, Denies hearing things others do not hear, Denies hopelessness, Denies irritability, Denies lack of enjoyment, Denies memory loss, Denies mood swings, Denies panic attacks, Denies paranoia, Denies seeing things others do not see, Denies sensing things others do not sense, Denies tactile hallucinations, Denies thoughts of hurting/killing others, Denies thoughts of hurting/killing yourself, Denies other Endocrine: Denies cold intolerance, Denies excessive sweating, Denies flushing, Denies heat intolerance, Denies increased hunger, Denies increased thirst, Denies increased urination, Denies rapid, pounding, or irregular heartbeat, Denies other Hematologic/Lymphatic: Denies easy bleeding, Denies easy bruising, Denies enlarged lymph nodes, Denies other Allergic/Immunologic: Denies GI upset with certain foods, Denies hives, Denies itchy eyes, Denies lip swelling, Denies seasonal runny nose, Denies throat swelling, Denies tongue swelling, Denies wheezing, Denies other PMFSH - History History Provided By: Patient, Family Member - Medical History Medical History: Medical History (Last Updated 04/24/18 @ 00:31 by BOB Dominique) Diabetes mellitus type 2, diet-controlled (Chronic) End stage renal disease (Chronic) Renal osteodystrophy (Chronic) History of hepatitis C (Inactive) Diverticulosis (Chronic) History of bladder cancer (Inactive) History of thyroid cancer (Inactive) Hypertension - Surgical History Surgical History: Surgical History (Last Updated 04/24/18 @ 00:41 by BOB Dominique) History of bladder surgery AV fistula Onset Date: ~2013 History of laparoscopic cholecystectomy Onset Date: ~2014 History of lithotripsy History of thyroidectomy Onset Date: ~2014 - Family History Family History: Family History (Last Updated 04/24/18 @ 00:38 by BOB Dominique) Mother Family history of acute myocardial infarction Diabetes mellitus Father Family history of acute myocardial infarction - Tobacco History Second Hand Smoke Exposure: No Tobacco Use In Past 30 Days: No Smoking Status: Former smoker Tobacco Type: Cigarettes Packs Per Day: 1 (1 PPD x 30 years) Years Smoked: 30 - Alcohol History How Often Do You Have a Drink Containing Alcohol: Never - Substance Use History Substance History: Past History (has not used since he returned from the [place]) Medications and Allergies Active Medications: Active Medications Acetaminophen (Tylenol) 650 mg PO Q4H PRN PRN Reason: Temp > 100.4 Albuterol (Duoneb Neb (Prn)) 1 ampul NEB Q6HR NEB PRN PRN Reason: WHEEZING Amlodipine Besylate (Norvasc) 10 mg PO DAILY [facility] Last Admin: 04/25/18 08:56 Dose: 10 mg Bisacodyl (Dulcolax Supp) 10 mg RECTAL DAILY PRN PRN Reason: SEVERE CONSITIPATION Bisacodyl (Dulcolax Ec) 10 mg PO PRN PRN PRN Reason: CONSTIPATION Carvedilol (Coreg) 25 mg PO BID [facility] Last Admin: 04/25/18 08:55 Dose: 25 mg Cinacalcet (Sensipar) 90 mg PO DAILY [facility] Last Admin: 04/25/18 08:57 Dose: 90 mg Clonidine HCl (Catapres) 0.1 mg PO Q6H PRN PRN Reason: SEE LABEL COMMENTS Last Admin: 04/25/18 12:12 Dose: 0.1 mg Dextrose (D50w Vial) 50 ml IV.PUSH UNSCH PRN PRN Reason: PER HYPOGLYCEMIA PROTOCOL Diphenhydramine HCl (Benadryl) 25 mg PO Q6H PRN PRN Reason: ITCHING Diphenhydramine HCl (Benadryl Inj) 25 mg IV.PUSH Q6H PRN PRN Reason: for itching Diphenhydramine HCl (Benadryl Inj) 50 mg IV.PUSH UNSCH X1 PRN PRN Reason: ANAPHYLACTIC REACTION Docusate Sodium (Colace) 100 mg PO BID [facility] Last Admin: 04/25/18 08:56 Dose: 100 mg Epinephrine HCl (Epinephrine (1:10,000) Inj) 0.1 mg IV.PUSH UNSCH X1 PRN PRN Reason: SEE LABEL COMMENTS Glucagon (Glucagon Inj) 1 mg OTHER PRN PRN PRN Reason: for Hypoglycemia Protocol Hydralazine HCl (Apresoline Inj) 10 mg IV.PUSH Q6H PRN PRN Reason: SEE LABEL COMMENTS Last Admin: 04/25/18 12:38 Dose: 10 mg Hydralazine HCl (Apresoline) 50 mg PO TID [facility] Last Admin: 04/25/18 17:37 Dose: 50 mg Hydrocortisone Sodium Succinate (Solucortef Inj) 200 mg IV.PUSH UNSCH X1 PRN PRN Reason: ANAPHYLACTIC REACTION Sodium Chloride (Ns Inj) 1,000 mls @ 40 mls/hr IV.CONT .Q24H [facility] Last Admin: 04/25/18 09:24 Dose: Not Given Dextrose/Sodium Chloride (D5w/1/2 Ns Inj) 1,000 mls @ 40 mls/hr IV.CONT .Q24H [facility] Last Admin: 04/25/18 15:07 Dose: 40 mls/hr Ondansetron HCl 8 mg/ Dextrose 54 mls @ 200 mls/hr IV.SIG ONCE PRN PRN Reason: MILD NAUSEA Morphine Sulfate (Morphine Inj) 30 mg in 30 mls @ 0 mls/hr [employer] UNSCH PRN PRN Reason: per [employer] parameters Last Admin: 04/24/18 15:31 Dose: 0 mls/hr Sodium Chloride (1/2 Normal Saline Inj) 1,000 mls @ 0 mls/hr IV.CONT .Q0M PRN PRN Reason: Replace urine output Last Infusion: 04/25/18 16:05 Dose: 5 mls/hr Nicardipine HCl 25 mg/ Sodium (Chloride) 250 mls @ 50 mls/hr IV.CONT TITRATE PRN; Protocol PRN Reason: Per Protocol Insulin Aspart (Novolog Insulin Suppl Scale Inj) 0 unit SQ Q4HR [facility]; Protocol Last Admin: 04/25/18 16:57 Dose: 9 unit Labetalol HCl (Trandate Inj) 10 mg IV.PUSH Q6H PRN PRN Reason: HYPERTENSION Last Admin: 04/25/18 11:44 Dose: 10 mg Levothyroxine Sodium (Synthroid) 200 mcg PO DAILY@0600 [facility] Last Admin: 04/25/18 06:37 Dose: 200 mcg Mycophenolate Mofetil (Cellcept) 1,000 mg PO BID@0600,1800 [facility] Last Admin: 04/25/18 17:40 Dose: 1,000 mg Naloxone HCl (Narcan Inj) 0.4 mg IV.PUSH PRN PRN PRN Reason: Resp rate < 10 Ondansetron HCl (Zofran Inj) 4 mg IV.PUSH Q6H PRN PRN Reason: MILD NAUSEA Pantoprazole Sodium (Protonix) 40 mg PO DAILY [facility] Last Admin: 04/25/18 08:57 Dose: 40 mg Patiromer (Veltassa Pkt) 16.8 gm PO DAILY [facility] Last Admin: 04/25/18 16:58 Dose: 16.8 gm Sennosides (Senokot) 17.2 mg PO Q12H PRN PRN Reason: Moderate Constipation Tacrolimus (Prograf) 2 mg PO BID@0600,1800 [facility] Last Admin: 04/25/18 17:39 Dose: 2 mg Vitamin B Complex/Vit C/Folic Acid (Nephrocaps) 1 tab PO DAILY [facility] Last Admin: 04/25/18 08:57 Dose: 1 tab Allergies Allergy/AdvReac Type Severity Reaction Status Date / Time No Known Allergies AdvReac Unknown Uncoded 03/28/18 15:19 Home Medications Medication Instructions Recorded Confirmed Type B complex with C#20-folic acid 1 cap PO DAILY 04/23/18 04/23/18 History [Zbigniew Caps] carvedilol 25 mg PO BID 04/23/18 04/23/18 History cinacalcet [Sensipar] 90 mg PO DAILY 04/23/18 04/23/18 History clonidine HCl 0.2 mg PO TID 04/23/18 04/23/18 History hydralazine 50 mg PO TID 04/23/18 04/23/18 History isosorbide dinitrate 10 mg PO TID 04/23/18 04/23/18 History levothyroxine 200 mcg PO DAILY 04/23/18 04/23/18 History pravastatin 20 mg PO DAILY 04/23/18 04/23/18 History sucroferric oxyhydroxide [Velphoro] 500 mg PO TID 04/23/18 04/23/18 History amlodipine 10 mg PO DAILY 04/24/18 04/24/18 History Physical Exam Vital signs: Vital Signs 04/24/18 21:52 04/24/18 23:00 04/25/18 00:00 Temperature 98.7 F Pulse Rate 92 H 93 H Respiratory Rate 24 Blood Pressure 176/105 H Pulse Oximetry 97 97 04/25/18 03:00 04/25/18 04:00 04/25/18 07:00 Temperature 99.4 F 99 F Pulse Rate 91 H 91 H 93 H Respiratory Rate 24 16 Blood Pressure 169/100 H 171/98 H 169/86 H Pulse Oximetry 96 04/25/18 07:54 04/25/18 08:00 04/25/18 11:00 Temperature 99.1 F Pulse Rate 95 H 90 Respiratory Rate 16 Blood Pressure 182/95 H 186/106 H Pulse Oximetry 96 97 04/25/18 15:00 Temperature 99.3 F Pulse Rate 94 H Respiratory Rate 16 Blood Pressure 164/94 H Pulse Oximetry Intake & Output 04/25/18 04/25/18 04/26/18 06:59 18:59 06:59 Intake Total 742 / 742 1680 / 1680 Output Total 143 / 143 82 / 82 Balance 599 / 599 1598 / 1598 Weight 72.1 kg Intake: IV 1000 / 1000 D5W/1/2 NS Inj 1,000 ML @ 40 1000 / 1000 mls/hr IV.CONT .Q24H [facility] Rx#: [id number] Oral 120 / 120 680 / 680 Other 622 / 622 Output: Urine Amount (Catheter) 143 / 143 Indwelling Urethral Catheter 143 / 143 Wound Drainage # 1 Right Abdomen Nick Other: Date of Last Bowel Movement 04/22/18 - Constitutional no acute distress - Routine HEENT Exam Head: Present: normocephalic, atraumatic Eye: Present: PERRL ENT: Present: mucous membranes moist - Routine Neck Exam Present: supple, full ROM. Absent: JVD, carotid bruit - Routine Respiratory Exam Absent: accessory muscle use, rales, rhonchi, stridor, wheezes - Routine Cardiovascular Exam Present: RRR, S1, S2 - Routine Abdominal Exam Present: soft, normoactive bowel sounds - Routine Extremities Exam Present: AV fistula - Routine Skin Exam Present: intact. Absent: cyanosis, erythema - Routine Neurological Exam Present: alert, oriented X3, CN II-XII intact, normal reflexes. 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 -Labetalol as needed -Cardene drip as needed to keep his BP less than 140 Type 2 diabetes mellitus -Diet-controlled -Insulin sliding scale DVT GI prophylaxis -Teds SCDs -Pharmacological DVT prophylaxis per transplant surgeon -1999 ADA Critical Care: The total critical care time was 35 minutes. Time to perform other separately billable procedures was not included in the critical care time.
[2018-04-25] MEDS: niCARdipine Inj 25 MG in Sodium Chlor 0.9% Inj 240 ML IV.CONT PRN (20:02)
--- NOTE | 2018-04-25 20:41 | P.PN ---
Subjective Interval history: Patient is alert, no SOB, mild abd. pain, not in distress. Physical Exam Vital signs: Vital Signs 04/24/18 21:52 04/24/18 23:00 04/25/18 00:00 Temperature 98.7 F Pulse Rate 92 H 93 H Respiratory Rate 24 Blood Pressure 176/105 H Pulse Oximetry 97 97 04/25/18 03:00 04/25/18 04:00 04/25/18 07:00 Temperature 99.4 F 99 F Pulse Rate 91 H 91 H 93 H Respiratory Rate 24 16 Blood Pressure 169/100 H 171/98 H 169/86 H Pulse Oximetry 96 04/25/18 07:54 04/25/18 08:00 04/25/18 11:00 Temperature 99.1 F Pulse Rate 95 H 90 Respiratory Rate 16 Blood Pressure 182/95 H 186/106 H Pulse Oximetry 96 97 04/25/18 15:00 Temperature 99.3 F Pulse Rate 94 H Respiratory Rate 16 Blood Pressure 164/94 H Pulse Oximetry Intake & Output 04/25/18 04/25/18 04/26/18 06:59 18:59 06:59 Intake Total 742 / 742 1680 / 1680 Output Total 143 / 143 82 / 82 Balance 599 / 599 1598 / 1598 Weight 72.1 kg Intake: IV 1000 / 1000 D5W/1/2 NS Inj 1,000 ML @ 40 1000 / 1000 mls/hr IV.CONT .Q24H COUNTS INCLUDE 234 BEDS AT [facility] Rx#: [id number] Oral 120 / 120 680 / 680 Other 622 / 622 Output: Urine Amount (Catheter) 143 / 143 / 72 Indwelling Urethral Catheter 143 / 143 Wound Drainage # 1 Right Abdomen Nick Other: Date of Last Bowel Movement 04/22/18 - Constitutional mild distress - Routine HEENT Exam Head: Present: normocephalic Eye: Present: EOMI - Routine Neck Exam Present: supple - Routine Cardiovascular Exam Present: S1, S2 - Routine Abdominal Exam Present: soft, normoactive bowel sounds, distended Comments: with dressing. - Routine Extremities Exam Present: edema - Routine Neurological Exam Present: alert, oriented X3 - Detailed Neurological Exam: Coma Scale Verbal Response: Oriented - Urinary Catheter Management Indwelling Urethral Catheter Cath placed during this visit: yes Urethral indwelling: Yes Reason for continuing: Hourly intake/output Insertion date: 04/24/18 Insertion time: 13:00 Results - Labs CBC & Chem 7: 04/25/18 05:30 04/25/18 12:04 Laboratory Results - last 24 hr 04/24/18 04/25/18 04/25/18 20:30 00:46 03:21 WBC RBC Hgb Hct MCV MCH MCHC RDW Plt Count MPV Prelim Diff (Auto) Neut % (Auto) Lymph % (Auto) Bent % (Auto) Eos % (Auto) Baso % (Auto) Neut # (Auto) Lymph # (Auto) Bent # (Auto) Eos # (Auto) Baso # (Auto) WBC Differential Seg Neuts % (Manual) Band Neuts % (Manual) Monocytes % (Manual) Abs Neuts (Manual) Differential Comment Platelet Estimate Platelet Morphology Acanthocytes (Spur) Retic Count Absolute Retic Sodium Potassium Chloride Carbon Dioxide Anion Gap BUN Creatinine Estimated GFR POC Glucose 135 H 71 69 Random Glucose Calcium Phosphorus Magnesium Iron TIBC % Saturation Ferritin 04/25/18 04/25/18 04/25/18 05:30 05:30 05:30 WBC 7.6 D RBC 2.43 L Hgb 8.2 L Hct 23.7 L MCV 97.7 MCH 33.8 MCHC 34.6 RDW 14.9 Plt Count 119 L MPV 9.1 Prelim Diff (Auto) Slide review pending Neut % (Auto) 16.1 Lymph % (Auto) 1.7 L Bent % (Auto) 82.1 H Eos % (Auto) 0.1 Baso % (Auto) 0.0 Neut # (Auto) 1.2 L Lymph # (Auto) 0.1 L Bent # (Auto) 6.2 H Eos # (Auto) 0.0 Baso # (Auto) 0.0 WBC Differential Manual diff final Seg Neuts % (Manual) 55 Band Neuts % (Manual) 43 H Monocytes % (Manual) 2 Abs Neuts (Manual) 7.4 Differential Comment . Platelet Estimate Low L Platelet Morphology Normal Acanthocytes (Spur) Occ H Retic Count Absolute Retic Sodium 138 Potassium 6.1 H D Chloride 105 Carbon Dioxide 18.2 L Anion Gap 15 BUN 71 H Creatinine 13.24 H* D Estimated GFR 5 L POC Glucose Random Glucose 91 Calcium 7.6 L Phosphorus 6.7 H Magnesium 2.2 Iron 19 L TIBC 244 L % Saturation 7.8 L Ferritin 2818 H 04/25/18 04/25/18 04/25/18 05:30 05:30 08:02 WBC RBC Hgb Hct MCV MCH MCHC RDW Plt Count MPV Prelim Diff (Auto) Neut % (Auto) Lymph % (Auto) Bent % (Auto) Eos % (Auto) Baso % (Auto) Neut # (Auto) Lymph # (Auto) Bent # (Auto) Eos # (Auto) Baso # (Auto) WBC Differential Seg Neuts % (Manual) Band Neuts % (Manual) Monocytes % (Manual) Abs Neuts (Manual) Differential Comment Platelet Estimate Platelet Morphology Acanthocytes (Spur) Retic Count 1.6 Absolute Retic 39.8 Sodium Potassium Chloride Carbon Dioxide Anion Gap BUN Creatinine Estimated GFR POC Glucose 123 H Random Glucose Calcium Phosphorus Magnesium Iron TIBC % Saturation Ferritin Cancelled 04/25/18 04/25/18 04/25/18 12:04 12:09 16:40 WBC RBC Hgb Hct MCV MCH MCHC RDW Plt Count MPV Prelim Diff (Auto) Neut % (Auto) Lymph % (Auto) Bent % (Auto) Eos % (Auto) Baso % (Auto) Neut # (Auto) Lymph # (Auto) Bent # (Auto) Eos # (Auto) Baso # (Auto) WBC Differential Seg Neuts % (Manual) Band Neuts % (Manual) Monocytes % (Manual) Abs Neuts (Manual) Differential Comment Platelet Estimate Platelet Morphology Acanthocytes (Spur) Retic Count Absolute Retic Sodium 140 Potassium 4.9 D Chloride 105 Carbon Dioxide 20.3 L Anion Gap 15 BUN 72 H Creatinine 13.29 H* Estimated GFR 5 L POC Glucose 87 177 H Random Glucose 63 L Calcium 7.9 L Phosphorus Magnesium Iron TIBC % Saturation Ferritin 04/25/18 20:12 WBC RBC Hgb Hct MCV MCH MCHC RDW Plt Count MPV Prelim Diff (Auto) Neut % (Auto) Lymph % (Auto) Bent % (Auto) Eos % (Auto) Baso % (Auto) Neut # (Auto) Lymph # (Auto) Bent # (Auto) Eos # (Auto) Baso # (Auto) WBC Differential Seg Neuts % (Manual) Band Neuts % (Manual) Monocytes % (Manual) Abs Neuts (Manual) Differential Comment Platelet Estimate Platelet Morphology Acanthocytes (Spur) Retic Count Absolute Retic Sodium Potassium Chloride Carbon Dioxide Anion Gap BUN Creatinine Estimated GFR POC Glucose 186 H Random Glucose Calcium Phosphorus Magnesium Iron TIBC % Saturation Ferritin - Imaging Impressions Renal Ultrasound 04/25/18 00:00 CONCLUSION: 1. Unremarkable ultrasound examination of the right lower quadrant transplant kidney. 2. Elevated external iliac artery velocities which appear significantly increased from yesterday's exam. This may be artifactual due to technique. However, developing external iliac artery stenosis cannot be excluded. - Procedures 1. donor renal transplant , with renal allograft to [facility]'s right iliac fossa.. please use 22 modifier due to case being much harder than average due to severe atherosclerosis of the iliac artery 2. Complex backbench preparation of right donor kidney 3. Placement of ureteral stent Assessment and Plan - Plan Assessment: 1. Post Cadaveric Renal Transplant. 2. End Stage renal disease. 3. Hypertension. 4. Hyperkalemia. 5. Anemia. Plan: Patient has DGF and still the urine out put is low. K was elevated and better after the treatment. On CellCept and also on ATG. To start Prograf tomorrow. Watch B,MP and possible HD tomorrow. BP is still elevated, started on hydralazine PO also. Continue IV Labetalol and Hydralazine PRN. Hgb. is stable.
[2018-04-26] MEDS: Insulin NovoLOG Aspart Correctional Sugar Inj SQ SCH ×6 (00:14→22:27)
[2018-04-26] MEDS: Sod Chloride 0.9% Inj 1,000 ML IV.CONT SCH (00:16)
[2018-04-26] MEDS: niCARdipine Inj 25 MG in Sodium Chlor 0.9% Inj 240 ML IV.CONT PRN ×2 (00:22→03:49)
[2018-04-26 04:31] LABS: Baso # (Auto) 0.1 th/mm3 (0.0-0.2); Baso % (Auto) 1.1 % (0.0-2.0); Eos % (Auto) 0.1 % (0.0-4.0); Hematocrit 22.7 % (39.0-51.0); Hemoglobin 7.7 gm/dL (13.0-17.0); Lymph # (Auto) 0.1 th/mm3 (1.0-4.8); Lymph % (Auto) 1.2 % (9.0-44.0); Mean Corpuscular Hemoglobin 33.1 pg (27.0-34.0); Mean Corpuscular Volume 97.5 fL (80.0-100.0); Mean Platelet Volume 9.6 fL (7.0-11.0); Mono # (Auto) 0.3 th/mm3 (0.0-0.9); Mono % (Auto) 4.6 % (0.0-8.0); Neut # (Auto) 5.5 th/mm3 (1.8-7.7); Platelet Count 93 th/mm3 (150-450); Red Blood Count 2.32 mil/mm3 (4.50-5.90); Red Cell Distribution Width 14.8 % (11.6-17.2); White Blood Count 5.9 th/mm3 (4.0-11.0)
[2018-04-26 05:02] LABS: Calcium 8.1 mg/dL (8.5-10.1); Carbon Dioxide 17.9 meq/L (21.0-32.0); Magnesium 2.3 mg/dL (1.5-2.5); Potassium 5.4 meq/L (3.5-5.1)
[2018-04-26 05:03] LABS: Phosphorus 6.8 mg/dL (2.5-4.9)
[2018-04-26] MEDS ORDERED: Sodium Polystyrene Sulfonate/Sorbitol Liq 15 GM/60 ML UDC PO ONE (08:45)
[2018-04-26] MEDS ORDERED: Epoetin Alfa Inj 4,000 UNIT/ML Vial SQ ONE (08:45)
[2018-04-26] MEDS ORDERED: MethylPREDNISolone Sod Succinate Inj 125 MG/2 ML Vial IV.PUSH ONE (09:00)
[2018-04-26] MEDS ORDERED: Iron Sucrose Inj 200 MG in Sodium Chlor 0.9% Inj 100 ML IV.SIG ONE (09:00)
--- NOTE | 2018-04-26 09:12 | P.PNTS ---
Subjective Interval history: No new c/o. Denies dyspnea. Initially denied significant abd pain , then was 7-8 --pain meds administered in response to that. + flatus. No BM yet-will get dulcolax supp today. Physical Exam Vital signs: Vital Signs 04/25/18 11:00 04/25/18 15:00 04/25/18 19:00 Temperature 99.1 F 99.3 F Pulse Rate 90 94 H 104 H Respiratory Rate 16 16 Blood Pressure 186/106 H 164/94 H Pulse Oximetry 04/25/18 19:30 04/25/18 20:52 04/25/18 23:00 Temperature 98.7 F 98.4 F Pulse Rate 105 H 97 H Respiratory Rate 17 15 Blood Pressure 178/104 H 151/80 H Pulse Oximetry 96 95 97 04/26/18 03:31 04/26/18 07:55 Temperature 98.2 F Pulse Rate 96 H Respiratory Rate 15 Blood Pressure 136/86 Pulse Oximetry 96 98 Intake & Output 04/25/18 04/26/18 04/26/18 18:59 06:59 18:59 Intake Total 1680 / 1680 1354 / 1354 Output Total 82 / 82 72 / 72 Balance 1598 / 1598 1282 / 1282 Weight 72.1 kg 74 kg 72.3 kg Intake: IV 1000 / 1000 1354 / 1354 D5W/1/2 NS Inj 1,000 ML @ 40 1000 / 1000 600 / 600 mls/hr IV.CONT .Q24H MO Rx#: [id number] / Normal Saline Inj 1,000 ML 66 / 66 @ Titrate IV.CONT .Q0M PRN Rx#: [id number] Cardene Inj 25 MG In NS Inj 240 688 / 688 ML @ 5 MG/HR 50 mls/hr IV.CONT TITRATE PRN Rx#:[id number] Oral 680 / 680 Output: Urine Amount (Catheter) / 62 Indwelling Urethral Catheter Wound Drainage # 1 Right Abdomen Nick Other: Bladder Irrigation Fluid - Amount Instilled Indwelling Urethral Catheter 60 Bladder Irrigation Fluid - Amount Drained Indwelling Urethral Catheter 60 Date of Last Bowel Movement 04/22/18 - Constitutional no acute distress - Routine HEENT Exam Head: Present: normocephalic, atraumatic - Routine Neck Exam Present: supple - Routine Respiratory Exam Present: CTA bilaterally - Routine Cardiovascular Exam Present: RRR, S1, S2 - Routine Abdominal Exam Present: soft, distended Comments: soft, + active bowel sounds. minimally distended. approp tender. minimal staining on dressing. - Routine Extremities Exam Comments: Calves nontender to palpation. Palpable DP/PT pulses. No peripheral edema. - Routine Psychiatric Exam Present: normal affect, normal thought process - Urinary Catheter Management Indwelling Urethral Catheter Cath placed during this visit: yes Urethral indwelling: Yes Reason for continuing: Hourly intake/output Insertion date: 04/24/18 Insertion time: 13:00 Results - Labs CBC & Chem 7: 04/26/18 03:30 04/26/18 03:30 Laboratory Results - last 24 hr 04/25/18 04/25/18 04/25/18 05:30 05:30 05:30 WBC RBC Hgb Hct MCV MCH MCHC RDW Plt Count MPV Prelim Diff (Auto) Neut % (Auto) Lymph % (Auto) [place] % (Auto) Eos % (Auto) Baso % (Auto) Neut # (Auto) Lymph # (Auto) [place] # (Auto) Eos # (Auto) Baso # (Auto) WBC Differential Manual diff final Seg Neuts % (Manual) 55 Band Neuts % (Manual) 43 H Monocytes % (Manual) 2 Abs Neuts (Manual) 7.4 Differential Comment Platelet Estimate Low L Platelet Morphology Normal Acanthocytes (Spur) Occ H Retic Count 1.6 Absolute Retic 39.8 Sodium Potassium Chloride Carbon Dioxide Anion Gap BUN Creatinine Estimated GFR POC Glucose Random Glucose Calcium Phosphorus Magnesium Iron 19 L TIBC 244 L % Saturation 7.8 L Ferritin 2818 H 04/25/18 04/25/18 04/25/18 05:30 12:04 12:09 WBC RBC Hgb Hct MCV MCH MCHC RDW Plt Count MPV Prelim Diff (Auto) Neut % (Auto) Lymph % (Auto) [place] % (Auto) Eos % (Auto) Baso % (Auto) Neut # (Auto) Lymph # (Auto) [place] # (Auto) Eos # (Auto) Baso # (Auto) WBC Differential Seg Neuts % (Manual) Band Neuts % (Manual) Monocytes % (Manual) Abs Neuts (Manual) Differential Comment Platelet Estimate Platelet Morphology Acanthocytes (Spur) Retic Count Absolute Retic Sodium 140 Potassium 4.9 D Chloride 105 Carbon Dioxide 20.3 L Anion Gap 15 BUN 72 H Creatinine 13.29 H* Estimated GFR 5 L POC Glucose 87 Random Glucose 63 L Calcium 7.9 L Phosphorus Magnesium Iron TIBC % Saturation Ferritin Cancelled 04/25/18 04/25/18 04/25/18 16:40 20:12 23:19 WBC RBC Hgb Hct MCV MCH MCHC RDW Plt Count MPV Prelim Diff (Auto) Neut % (Auto) Lymph % (Auto) [place] % (Auto) Eos % (Auto) Baso % (Auto) Neut # (Auto) Lymph # (Auto) [place] # (Auto) Eos # (Auto) Baso # (Auto) WBC Differential Seg Neuts % (Manual) Band Neuts % (Manual) Monocytes % (Manual) Abs Neuts (Manual) Differential Comment Platelet Estimate Platelet Morphology Acanthocytes (Spur) Retic Count Absolute Retic Sodium Potassium Chloride Carbon Dioxide Anion Gap BUN Creatinine Estimated GFR POC Glucose 177 H 186 H 67 L Random Glucose Calcium Phosphorus Magnesium Iron TIBC % Saturation Ferritin 04/26/18 04/26/18 04/26/18 00:03 00:25 03:30 WBC 5.9 RBC 2.32 L Hgb 7.7 L Hct 22.7 L MCV 97.5 MCH 33.1 MCHC 34.0 RDW 14.8 Plt Count 93 L MPV 9.6 Prelim Diff (Auto) Slide review pending Neut % (Auto) 93.0 H Lymph % (Auto) 1.2 L [place] % (Auto) 4.6 Eos % (Auto) 0.1 Baso % (Auto) 1.1 Neut # (Auto) 5.5 Lymph # (Auto) 0.1 L [place] # (Auto) 0.3 Eos # (Auto) 0.0 Baso # (Auto) 0.1 WBC Differential Seg Neuts % (Manual) Band Neuts % (Manual) Monocytes % (Manual) Abs Neuts (Manual) Differential Comment . Platelet Estimate Platelet Morphology Acanthocytes (Spur) Retic Count Absolute Retic Sodium Potassium Chloride Carbon Dioxide Anion Gap BUN Creatinine Estimated GFR POC Glucose 65 L 115 H Random Glucose Calcium Phosphorus Magnesium Iron TIBC % Saturation Ferritin 04/26/18 04/26/18 03:30 07:50 WBC RBC Hgb Hct MCV MCH MCHC RDW Plt Count MPV Prelim Diff (Auto) Neut % (Auto) Lymph % (Auto) [place] % (Auto) Eos % (Auto) Baso % (Auto) Neut # (Auto) Lymph # (Auto) [place] # (Auto) Eos # (Auto) Baso # (Auto) WBC Differential Seg Neuts % (Manual) Band Neuts % (Manual) Monocytes % (Manual) Abs Neuts (Manual) Differential Comment Platelet Estimate Platelet Morphology Acanthocytes (Spur) Retic Count Absolute Retic Sodium 137 Potassium 5.4 H Chloride 102 Carbon Dioxide 17.9 L Anion Gap 17 H BUN 82 H Creatinine 14.01 H* Estimated GFR 4 L POC Glucose 152 H Random Glucose 99 Calcium 8.1 L Phosphorus 6.8 H Magnesium 2.3 Iron TIBC % Saturation Ferritin - Imaging Impressions Renal Ultrasound 04/25/18 00:00 CONCLUSION: 1. Unremarkable ultrasound examination of the right lower quadrant transplant kidney. 2. Elevated external iliac artery velocities which appear significantly increased from yesterday's exam. This may be artifactual due to technique. However, developing external iliac artery stenosis cannot be excluded. - Procedures 1. donor renal transplant , with renal allograft to [facility]'s right iliac fossa.. please use 22 modifier due to case being much harder than average due to severe atherosclerosis of the iliac artery 2. Complex backbench preparation of right donor kidney 3. Placement of ureteral stent Assessment and Plan - Assessment (1) Diabetes mellitus type 2, diet-controlled Code(s): E11.9 - Type 2 diabetes mellitus without complications Status: Chronic (2) History of hypertension Code(s): Z86.79 - Personal history of other diseases of the circulatory system Status: Chronic (3) End stage renal disease Code(s): N18.6 - End stage renal disease Status: Chronic - Plan Post op Day: 2 Patient: Mr Carvajal is status post DDKT for ESRD secondary to DM/htn. 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 Allograft function: currently with elevated creatinine and potassium. Potassium 5.4 this AM. on [place]. 15 grams of kayexalate given. Weight up to 72.3 kg from 67 kg at admit. No significant response to lasix yesterday. Will give 1 mg bumex and see what response is. Don't think HD warranted at this point. On low dose prograf (2 mg). Tolerated clears yesterday. Will advance to regular consistency diabetic-renal diet. + flatus, but no BM, abd min-mod distended and denies N/V--will give dulcolax supp today. On colace. Continue insulin sliding scale. Will continue daily standing weight. B SCDs. Will plan to resume thymo dosing tomorrow and 1 mg/kg x 2 days. Flomax started today. Will plan to remove campbell tomorrow. 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 Hgb 7.7, retic 1.6%, iron 19 mcg, ferritin 2818, afebrile-- IV iron and epo given.. Immunosuppression: Thymo induction; Maint: steroids + Cellcept 1000 mg BID + Tacrolimus 2 mg BID
[2018-04-26] MEDS: Docusate Sodium 100 MG Capsule PO SCH ×2 (09:24→22:26)
[2018-04-26] MEDS: hydrALAZINE 50 MG Tablet PO SCH ×3 (09:24→17:30)
[2018-04-26] MEDS: Carvedilol 12.5 MG Tablet PO SCH ×2 (09:24→22:26)
[2018-04-26] MEDS: Vitamin B Complex/Vit C/Folic Tablet PO SCH (09:25)
[2018-04-26] MEDS: amLODIPine 10 MG Tablet PO SCH (09:28)
[2018-04-26 09:33] LABS: Dohle Bodies Present; Platelet Morphology Normal (Normal)
[2018-04-26 13:01] LABS: Calcium 7.9 mg/dL (8.5-10.1); Carbon Dioxide 18.7 meq/L (21.0-32.0); Potassium 4.8 meq/L (3.5-5.1)
--- NOTE | 2018-04-26 14:26 | P.PNCC ---
Subjective Subjective Remarks/Hospital Course: Hospital Course: 67 year-old male with a history of ESRD, hypertension, and diet-controlled type 2 diabetes mellitus who presented to the hospital under the hospitalist service for renal transplant. He has been on HD for 5 years and makes only drops of urine now. He denies any recent fever, chills, chest pain, shortness of breath , nausea, vomiting, diarrhea, or pain. He underwent renal transplantation today and post procedure he was found to have elevated blood pressure on and off difficult to control. 04/26: off cardene. BP improved into 140s/150s. goal sbp 130 - 160. denies complaints ROS negative. Objective Vital Signs / I&O: Vital Signs 04/25/18 15:00 04/25/18 19:00 04/25/18 19:30 Temperature 37.4 C 37.1 C Pulse Rate 94 H 104 H 105 H Respiratory Rate 16 17 Blood Pressure 164/94 H 178/104 H Pulse Oximetry 96 04/25/18 20:52 04/25/18 23:00 04/26/18 03:31 Temperature 36.9 C 36.8 C Pulse Rate 97 H 96 H Respiratory Rate 15 15 Blood Pressure 151/80 H 136/86 Pulse Oximetry 95 97 96 04/26/18 07:00 04/26/18 07:55 04/26/18 08:00 Temperature 37.0 C Pulse Rate Respiratory Rate 18 Blood Pressure 148/81 H Pulse Oximetry 96 98 96 04/26/18 11:00 04/26/18 12:24 Temperature 36.9 C Pulse Rate Respiratory Rate 18 20 Blood Pressure 159/92 H Pulse Oximetry 96 Intake & Output 04/25/18 04/26/18 04/26/18 18:59 06:59 18:59 Intake Total 1680 / 1680 1354 / 1354 700 / 700 Output Total 82 / 82 72 / 72 30 / 30 Balance 1598 / 1598 1282 / 1282 670 / 670 Weight 72.1 kg 74 kg 72.3 kg Intake: IV 1000 / 1000 1354 / 1354 D5W/1/2 NS Inj 1,000 ML @ 40 1000 / 1000 600 / 600 mls/hr IV.CONT .Q24H MO Rx#: [id number] 1/2 Normal Saline Inj 1,000 ML 66 / 66 @ Titrate IV.CONT .Q0M PRN Rx#: [id number] Cardene Inj 25 MG In NS Inj 240 688 / 688 ML @ 5 MG/HR 50 mls/hr IV.CONT TITRATE PRN Rx#:[id number] Oral 680 / 680 700 / 700 Output: Urine 3 / 3 Urine Amount (Catheter) Indwelling Urethral Catheter Wound Drainage # 1 Right Abdomen Nick Other: Bladder Irrigation Fluid - Amount Instilled Indwelling Urethral Catheter 60 Bladder Irrigation Fluid - Amount Drained Indwelling Urethral Catheter 60 Date of Last Bowel Movement 04/22/18 Result Diagrams: 04/26/18 03:30 04/26/18 12:10 Objective Remarks: GENERAL: Middle-age male, lying in bed, no acute distress HEENT: Normocephalic. Atraumatic. Pupils equal, round, reactive, conjugate. Mucous membranes are moist NECK: Trachea is midline. There is no JVD. CHEST: Equal chest rise. Unlabored. Nasal cannula. CARDIOVASCULAR: Normal rate, regular rhythm. Sinus. ABDOMEN: Soft, nontender, nondistended. No guarding. Inguinal incision is clean dry and intact. MUSCULOSKELETAL: Pulses 2+. No peripheral edema. NEUROLOGICAL: RASS 0. CAM -. Follows commands. No focal deficits. Assessment and Plan - Assessment and Plan Plan: ESRD -Status post renal transplantation -Management per transplant surgeon and public relations director Hypertension -Hydralazine p.o. -Labetalol as needed -DC Cardene drip Type 2 diabetes mellitus -Diet-controlled -Insulin sliding scale DVT GI prophylaxis -Teds SCDs -Pharmacological DVT prophylaxis per transplant surgeon -1999 ADA Disposition: May transfer to stepdown unit. Critical care medicine will sign off. Please reconsult as needed.
--- NOTE | 2018-04-26 15:47 | P.PN ---
Subjective Interval history: Patient is sleepy, arousable, not in distress. Physical Exam Vital signs: Vital Signs 04/25/18 19:00 04/25/18 19:30 04/25/18 20:52 Temperature 98.7 F Pulse Rate 104 H 105 H Respiratory Rate 17 Blood Pressure 178/104 H Pulse Oximetry 96 95 04/25/18 23:00 04/26/18 03:31 04/26/18 07:00 Temperature 98.4 F 98.2 F 98.6 F Pulse Rate 97 H 96 H 99 H Respiratory Rate 15 15 18 Blood Pressure 151/80 H 136/86 148/81 H Pulse Oximetry 97 96 96 04/26/18 07:55 04/26/18 08:00 04/26/18 11:00 Temperature 98.5 F Pulse Rate 97 H Respiratory Rate 18 Blood Pressure 159/92 H Pulse Oximetry 98 96 96 04/26/18 12:24 04/26/18 15:00 Temperature 98.6 F Pulse Rate 89 Respiratory Rate 20 18 Blood Pressure 146/92 H Pulse Oximetry 89 L Intake & Output 04/25/18 04/26/18 04/26/18 18:59 06:59 18:59 Intake Total 1680 / 1680 1354 / 1354 700 / 700 Output Total 82 / 82 72 / 72 42 / 42 Balance 1598 / 1598 1282 / 1282 658 / 658 Weight 72.1 kg 74 kg 72.3 kg Intake: IV 1000 / 1000 1354 / 1354 D5W/1/2 NS Inj 1,000 ML @ 40 1000 / 1000 600 / 600 mls/hr IV.CONT .Q24H MO Rx#: [id number] 1/2 Normal Saline Inj 1,000 ML 66 / 66 @ Titrate IV.CONT .Q0M PRN Rx#: [id number] Cardene Inj 25 MG In NS Inj 240 688 / 688 ML @ 5 MG/HR 50 mls/hr IV.CONT TITRATE PRN Rx#:[id number] Oral 680 / 680 700 / 700 Output: Urine 3 / 3 Urine Amount (Catheter) 62 / 62 39 / 39 Indwelling Urethral Catheter 62 / 62 39 / 39 Wound Drainage # 1 Right Abdomen Nick Other: Bladder Irrigation Fluid - Amount Instilled Indwelling Urethral Catheter 60 Bladder Irrigation Fluid - Amount Drained Indwelling Urethral Catheter 60 Date of Last Bowel Movement 04/22/18 - Constitutional no acute distress - Routine HEENT Exam Head: Present: normocephalic - Routine Neck Exam Present: supple, full ROM, JVD - Routine Respiratory Exam Present: decreased breath sounds, rhonchi, diminished air movement - Routine Cardiovascular Exam Present: S1, S2 - Routine Abdominal Exam Present: soft, normoactive bowel sounds, distended - Routine Extremities Exam Present: edema - Routine Neurological Exam Present: alert, oriented X3 - Detailed Neurological Exam: Coma Scale Eye Opening: Spontaneous Verbal Response: Oriented - Urinary Catheter Management Indwelling Urethral Catheter Cath placed during this visit: yes Urethral indwelling: Yes Reason for continuing: Hourly intake/output Insertion date: 04/24/18 Insertion time: 13:00 Results - Labs CBC & Chem 7: 04/26/18 03:30 04/26/18 12:10 Laboratory Results - last 24 hr 04/25/18 04/25/18 04/25/18 16:40 20:12 23:19 WBC RBC Hgb Hct MCV MCH MCHC RDW Plt Count MPV Prelim Diff (Auto) Neut % (Auto) Lymph % (Auto) [place] % (Auto) Eos % (Auto) Baso % (Auto) Neut # (Auto) Lymph # (Auto) [place] # (Auto) Eos # (Auto) Baso # (Auto) WBC Differential Seg Neuts % (Manual) Band Neuts % (Manual) Abs Neuts (Manual) Differential Comment Dohle Bodies Platelet Estimate Platelet Morphology Sodium Potassium Chloride Carbon Dioxide Anion Gap BUN Creatinine Estimated GFR POC Glucose 177 H 186 H 67 L Random Glucose Calcium Phosphorus Magnesium Tacrolimus 04/26/18 04/26/18 04/26/18 00:03 00:25 03:30 WBC 5.9 RBC 2.32 L Hgb 7.7 L Hct 22.7 L MCV 97.5 MCH 33.1 MCHC 34.0 RDW 14.8 Plt Count 93 L MPV 9.6 Prelim Diff (Auto) Slide review pending Neut % (Auto) 93.0 H Lymph % (Auto) 1.2 L [place] % (Auto) 4.6 Eos % (Auto) 0.1 Baso % (Auto) 1.1 Neut # (Auto) 5.5 Lymph # (Auto) 0.1 L [place] # (Auto) 0.3 Eos # (Auto) 0.0 Baso # (Auto) 0.1 WBC Differential Manual diff final Seg Neuts % (Manual) 82 H Band Neuts % (Manual) 18 H Abs Neuts (Manual) 5.9 Differential Comment . Dohle Bodies Present H Platelet Estimate Low L Platelet Morphology Normal Sodium Potassium Chloride Carbon Dioxide Anion Gap BUN Creatinine Estimated GFR POC Glucose 65 L 115 H Random Glucose Calcium Phosphorus Magnesium Tacrolimus 04/26/18 04/26/18 04/26/18 03:30 03:30 07:50 WBC RBC Hgb Hct MCV MCH MCHC RDW Plt Count MPV Prelim Diff (Auto) Neut % (Auto) Lymph % (Auto) [place] % (Auto) Eos % (Auto) Baso % (Auto) Neut # (Auto) Lymph # (Auto) [place] # (Auto) Eos # (Auto) Baso # (Auto) WBC Differential Seg Neuts % (Manual) Band Neuts % (Manual) Abs Neuts (Manual) Differential Comment Dohle Bodies Platelet Estimate Platelet Morphology Sodium 137 Potassium 5.4 H Chloride 102 Carbon Dioxide 17.9 L Anion Gap 17 H BUN 82 H Creatinine 14.01 H* Estimated GFR 4 L POC Glucose 152 H Random Glucose 99 Calcium 8.1 L Phosphorus 6.8 H Magnesium 2.3 Tacrolimus Less than 2.0 L 04/26/18 04/26/18 11:51 12:10 WBC RBC Hgb Hct MCV MCH MCHC RDW Plt Count MPV Prelim Diff (Auto) Neut % (Auto) Lymph % (Auto) [place] % (Auto) Eos % (Auto) Baso % (Auto) Neut # (Auto) Lymph # (Auto) [place] # (Auto) Eos # (Auto) Baso # (Auto) WBC Differential Seg Neuts % (Manual) Band Neuts % (Manual) Abs Neuts (Manual) Differential Comment Dohle Bodies Platelet Estimate Platelet Morphology Sodium 138 Potassium 4.8 Chloride 103 Carbon Dioxide 18.7 L Anion Gap 16 H BUN 85 H Creatinine 13.78 H* Estimated GFR 4 L POC Glucose 168 H Random Glucose 144 H Calcium 7.9 L Phosphorus Magnesium Tacrolimus - Procedures 1. [facility] renal [facility] , [facility].. please use 22 modifier due to case being much harder than average due to severe atherosclerosis of the iliac artery 2. Complex backbench preparation of right donor kidney 3. Placement of ureteral stent Assessment and Plan - Plan Assessment: 1. Post Cadaveric Renal Transplant. 2. End Stage renal disease. 3. Hypertension. 4. Hyperkalemia. 5. Anemia. Plan: Patient has DGF and still the urine out put is low. K was elevated and now normal. On CellCept and also on ATG. Started on Tacrolimus 2 mg BID. Watch BMP and no need for HD now. BP is now better, started on hydralazine PO also. Continue IV Labetalol and Hydralazine PRN. Hgb. is stable. Plan for discharge in next 2-3 days.
[2018-04-26] MEDS: Dextrose 5%/NaCl 0.45% Inj 1,000 ML IV.CONT SCH (16:46)
[2018-04-26 21:02] LABS: Baso % (Auto) 0.2 % (0.0-2.0); Eos % (Auto) 0.1 % (0.0-4.0); Hemoglobin 7.5 gm/dL (13.0-17.0); Lymph # (Auto) 0.1 th/mm3 (1.0-4.8); Lymph % (Auto) 1.2 % (9.0-44.0); Mean Corpuscular HGB Conc 33.9 % (32.0-36.0); Mean Corpuscular Hemoglobin 33.4 pg (27.0-34.0); Mean Corpuscular Volume 98.5 fL (80.0-100.0); Mean Platelet Volume 9.7 fL (7.0-11.0); Mono # (Auto) 0.2 th/mm3 (0.0-0.9); Mono % (Auto) 3.8 % (0.0-8.0); Neut # (Auto) 4.7 th/mm3 (1.8-7.7); Neut % (Auto) 94.7 % (16.0-70.0); Platelet Count 92 th/mm3 (150-450); Red Blood Count 2.24 mil/mm3 (4.50-5.90); Red Cell Distribution Width 15.1 % (11.6-17.2); White Blood Count 4.9 th/mm3 (4.0-11.0)
[2018-04-26 21:47] LABS: Monocytes 3 % (0-8); Platelet Morphology Normal (Normal)
[2018-04-26 21:48] LABS: Dohle Bodies Present
[2018-04-26 21:49] LABS: Acanthocytes Occ
[2018-04-27] MEDS: hydrALAZINE HCl Inj 20 MG/ML Vial IV.PUSH PRN ×3 (01:15→16:31)
[2018-04-27] MEDS: Insulin NovoLOG Aspart Correctional Sugar Inj SQ SCH ×6 (01:16→20:31)
[2018-04-27] MEDS: niCARdipine Inj 25 MG in Sodium Chlor 0.9% Inj 240 ML IV.CONT PRN ×3 (03:53→11:31)
[2018-04-27] MEDS ORDERED: niCARdipine Inj 25 MG in Sodium Chlor 0.9% Inj 250 ML IV.CONT PRN (03:56)
[2018-04-27 04:38] LABS: Baso % (Auto) 0.1 % (0.0-2.0); Lymph # (Auto) 0.1 th/mm3 (1.0-4.8); Lymph % (Auto) 1.9 % (9.0-44.0); Mean Corpuscular HGB Conc 34.4 % (32.0-36.0); Mean Corpuscular Hemoglobin 33.5 pg (27.0-34.0); Mean Corpuscular Volume 97.4 fL (80.0-100.0); Mean Platelet Volume 9.5 fL (7.0-11.0); Mono # (Auto) 0.3 th/mm3 (0.0-0.9); Mono % (Auto) 6.6 % (0.0-8.0); Neut # (Auto) 4.4 th/mm3 (1.8-7.7); Neut % (Auto) 91.4 % (16.0-70.0); Platelet Count 90 th/mm3 (150-450); Red Blood Count 2.09 mil/mm3 (4.50-5.90); Red Cell Distribution Width 15.1 % (11.6-17.2); White Blood Count 4.8 th/mm3 (4.0-11.0)
[2018-04-27 04:58] LABS: Calcium 8.3 mg/dL (8.5-10.1); Hematocrit 20.3 % (39.0-51.0); Magnesium 2.2 mg/dL (1.5-2.5); Potassium 5.1 meq/L (3.5-5.1)
[2018-04-27 04:59] LABS: Phosphorus 7.5 mg/dL (2.5-4.9)
--- NOTE | 2018-04-27 05:36 | P.PNCC ---
Subjective Subjective Remarks/Hospital Course: Hospital Course: 67 year-old male with a history of ESRD, hypertension, and diet-controlled type 2 diabetes mellitus who presented to the hospital under the hospitalist service for renal transplant. He has been on HD for 5 years and makes only drops of urine now. He denies any recent fever, chills, chest pain, shortness of breath , nausea, vomiting, diarrhea, or pain. He underwent renal transplantation today and post procedure he was found to have elevated blood pressure on and off difficult to control. 04/26: off cardene. BP improved into 140s/150s. goal sbp 130 - 160. denies complaints ROS negative. 04/27: Reconsulted for uncontrolled hypertension back on a Cardene drip Objective Vital Signs / I&O: Vital Signs 04/26/18 07:00 04/26/18 07:55 04/26/18 08:00 Temperature 98.6 F Pulse Rate 99 H Respiratory Rate 18 Blood Pressure 148/81 H Pulse Oximetry 96 98 96 04/26/18 11:00 04/26/18 12:24 04/26/18 15:00 Temperature 98.5 F 98.6 F Pulse Rate 97 H 89 Respiratory Rate 18 20 18 Blood Pressure 159/92 H 146/92 H Pulse Oximetry 96 89 L 04/26/18 18:00 04/26/18 19:00 04/26/18 20:00 Temperature 99.1 F Pulse Rate 101 H 73 Respiratory Rate 14 Blood Pressure 155/78 H Pulse Oximetry 92 L 95 04/26/18 23:00 04/26/18 23:08 04/27/18 00:08 Temperature 98.4 F Pulse Rate 98 H 92 H 92 H Respiratory Rate 14 Blood Pressure 186/92 H Pulse Oximetry 04/27/18 01:00 04/27/18 01:20 04/27/18 02:00 Temperature Pulse Rate 91 H 94 H 93 H Respiratory Rate Blood Pressure 190/95 H Pulse Oximetry 04/27/18 03:00 04/27/18 04:00 04/27/18 04:07 Temperature 98.6 F Pulse Rate 92 H 96 H 101 H Respiratory Rate 14 14 Blood Pressure 186/96 H 171/86 H Pulse Oximetry Intake & Output 04/26/18 04/26/18 04/27/18 06:59 18:59 06:59 Intake Total 1354 / 1354 1762 / 1762 Output Total 72 / 72 62 / 62 110 / 110 Balance 1282 / 1282 1700 / 1700 -110 / -110 Weight 74 kg 72.3 kg Intake: IV 1354 / 1354 1062 / 1062 D5W/1/2 NS Inj 1,000 ML @ 40 600 / 600 1000 / 1000 mls/hr IV.CONT .Q24H MO Rx#: [id number] 1/2 Normal Saline Inj 1,000 ML 66 / 66 @ Titrate IV.CONT .Q0M PRN Rx#: [id number] Cardene Inj 25 MG In NS Inj 240 688 / 688 62 / 62 ML @ 5 MG/HR 50 mls/hr IV.CONT TITRATE PRN Rx#:[id number] Oral 700 / 700 Output: Urine 3 / 3 Urine Amount (Catheter) 59 / 59 110 / 110 Indwelling Urethral Catheter 62 59 / 59 110 / 110 Wound Drainage # 1 Right Abdomen Nick Other: Bladder Irrigation Fluid - Amount Instilled Indwelling Urethral Catheter 60 Bladder Irrigation Fluid - Amount Drained Indwelling Urethral Catheter 60 Result Diagrams: 04/27/18 03:31 04/27/18 03:31 Objective Remarks: GENERAL: Middle-age male, lying in bed, no acute distress HEENT: Normocephalic. Atraumatic. Pupils equal, round, reactive, conjugate. Mucous membranes are moist NECK: Trachea is midline. There is no JVD. CHEST: Equal chest rise. Unlabored. Nasal cannula. CARDIOVASCULAR: Normal rate, regular rhythm. Sinus. ABDOMEN: Soft, nontender, nondistended. No guarding. Inguinal incision is clean dry and intact. MUSCULOSKELETAL: Pulses 2+. No peripheral edema. NEUROLOGICAL: RASS 0. CAM -. Follows commands. No focal deficits. Assessment and Plan - Assessment and Plan Plan: ESRD -Status post renal transplantation -Management per transplant surgeon and human resources associate Hypertension -Hydralazine p.o. -Labetalol as needed -We started Cardene drip Type 2 diabetes mellitus -Diet-controlled -Insulin sliding scale DVT GI prophylaxis -Teds SCDs -Pharmacological DVT prophylaxis per transplant surgeon -1999 ADA Critical Care: The total critical care time was 35 minutes. Time to perform other separately billable procedures was not included in the critical care time.
[2018-04-27] MEDS: Sodium Chloride 0.45 % Inj 1,000 ML IV.CONT PRN (06:00)
[2018-04-27 06:06] LABS: Lymphocytes 2 % (9-44)
[2018-04-27 06:07] LABS: Dohle Bodies Present
[2018-04-27] MEDS ORDERED: Sodium Polystyrene Sulfonate/Sorbitol Liq 15 GM/60 ML UDC PO ONE (08:11)
[2018-04-27] MEDS ORDERED: Custom Consult Pharmacy 1 EACH OTHER SCH (09:00)
[2018-04-27] MEDS ORDERED: Nystatin Liq 500,000 UNIT/5 ML UDC SWISH-SWAL SCH (09:00)
[2018-04-27] MEDS: Docusate Sodium 100 MG Capsule PO SCH ×2 (09:26→20:29)
[2018-04-27] MEDS: Bisacodyl 10 MG Supp RECTAL PRN (09:27)
[2018-04-27] MEDS: amLODIPine 10 MG Tablet PO SCH (09:27)
[2018-04-27] MEDS: Carvedilol 12.5 MG Tablet PO SCH ×2 (09:27→20:28)
[2018-04-27] MEDS: Vitamin B Complex/Vit C/Folic Tablet PO SCH (09:28)
--- NOTE | 2018-04-27 09:36 | P.PNTS ---
Subjective Interval history: No new c/o. Pain well controlled. Rohan po. No BM yet. + flatus. Physical Exam Vital signs: Vital Signs 04/26/18 11:00 04/26/18 12:24 04/26/18 15:00 Temperature 98.5 F 98.6 F Pulse Rate 97 H 89 Respiratory Rate 18 20 18 Blood Pressure 159/92 H 146/92 H Pulse Oximetry 96 89 L 04/26/18 18:00 04/26/18 19:00 04/26/18 20:00 Temperature 99.1 F Pulse Rate 101 H 73 Respiratory Rate 14 Blood Pressure 155/78 H Pulse Oximetry 92 L 95 04/26/18 23:00 04/26/18 23:08 04/27/18 00:08 Temperature 98.4 F Pulse Rate 98 H 92 H 92 H Respiratory Rate 14 Blood Pressure 186/92 H Pulse Oximetry 04/27/18 01:00 04/27/18 01:20 04/27/18 02:00 Temperature Pulse Rate 91 H 94 H 93 H Respiratory Rate Blood Pressure 190/95 H Pulse Oximetry 04/27/18 03:00 04/27/18 04:00 04/27/18 04:07 Temperature 98.6 F Pulse Rate 92 H 96 H 101 H Respiratory Rate 14 14 Blood Pressure 186/96 H 171/86 H Pulse Oximetry 04/27/18 05:00 04/27/18 06:00 Temperature Pulse Rate 98 H 99 H Respiratory Rate Blood Pressure Pulse Oximetry Intake & Output 04/26/18 04/27/18 04/27/18 18:59 06:59 18:59 Intake Total 1762 / 1762 240 / 240 250 / 250 Output Total 134 / 134 Balance 1700 / 1700 106 / 106 250 / 250 Weight 72.3 kg Intake: IV 1062 / 1062 250 / 250 D5W/1/2 NS Inj 1,000 ML @ 40 1000 / 1000 mls/hr IV.CONT .Q24H [facility] Rx#: [id number] Cardene Inj 25 MG In NS Inj 240 250 / 250 ML @ 5 MG/HR 50 mls/hr IV.CONT TITRATE PRN Rx#:[id number] Oral 700 / 700 240 / 240 Output: Urine 3 / 3 Urine Amount (Catheter) 129 / 129 Indwelling Urethral Catheter 129 / 129 Wound Drainage # 1 Right Abdomen Nick - Constitutional no acute distress - Routine HEENT Exam Head: Present: normocephalic, atraumatic - Routine Neck Exam Present: supple - Routine Respiratory Exam Present: CTA bilaterally - Routine Cardiovascular Exam Present: RRR, S1, S2 - Routine Abdominal Exam Present: soft, normoactive bowel sounds Comments: Appropr tender. Wound CDI without EFT. - Routine Extremities Exam Present: pulses intact Comments: Calves soft nontender bilaterally. Bilateral legs/feet warm. Palpable distal pulses. - Routine Psychiatric Exam Present: normal affect, normal thought process - Urinary Catheter Management Indwelling Urethral Catheter Cath placed during this visit: yes Urethral indwelling: Yes Reason for continuing: Decision to DC catheter (RN to remove) Insertion date: 04/24/18 Insertion time: 13:00 Results - Labs CBC & Chem 7: 04/27/18 03:31 04/27/18 03:31 Laboratory Results - last 24 hr 04/24/18 04/26/18 04/26/18 00:30 03:30 03:30 WBC RBC Hgb Hct MCV MCH MCHC RDW Plt Count MPV Prelim Diff (Auto) Neut % (Auto) Lymph % (Auto) [place] % (Auto) Eos % (Auto) Baso % (Auto) Neut # (Auto) Lymph # (Auto) [place] # (Auto) Eos # (Auto) Baso # (Auto) WBC Differential Manual diff final Seg Neuts % (Manual) 82 H Band Neuts % (Manual) 18 H Lymphocytes % (Manual) Monocytes % (Manual) Abs Neuts (Manual) 5.9 Differential Comment Dohle Bodies Present H Platelet Estimate Low L Platelet Morphology Normal Acanthocytes (Spur) Sodium Potassium Chloride Carbon Dioxide Anion Gap BUN Creatinine Estimated GFR POC Glucose Random Glucose Calcium Phosphorus Magnesium Tacrolimus Less than 2.0 L MTS Gel Crossmatch See Detail 04/26/18 04/26/18 04/26/18 11:51 12:10 15:38 WBC RBC Hgb Hct MCV MCH MCHC RDW Plt Count MPV Prelim Diff (Auto) Neut % (Auto) Lymph % (Auto) [place] % (Auto) Eos % (Auto) Baso % (Auto) Neut # (Auto) Lymph # (Auto) [place] # (Auto) Eos # (Auto) Baso # (Auto) WBC Differential Seg Neuts % (Manual) Band Neuts % (Manual) Lymphocytes % (Manual) Monocytes % (Manual) Abs Neuts (Manual) Differential Comment Dohle Bodies Platelet Estimate Platelet Morphology Acanthocytes (Spur) Sodium 138 Potassium 4.8 Chloride 103 Carbon Dioxide 18.7 L Anion Gap 16 H BUN 85 H Creatinine 13.78 H* Estimated GFR 4 L POC Glucose 168 H 157 H Random Glucose 144 H Calcium 7.9 L Phosphorus Magnesium Tacrolimus MTS Gel Crossmatch 04/26/18 04/26/18 04/27/18 19:13 22:22 01:10 WBC 4.9 RBC 2.24 L Hgb 7.5 L Hct 22.0 L MCV 98.5 MCH 33.4 MCHC 33.9 RDW 15.1 Plt Count 92 L MPV 9.7 Prelim Diff (Auto) Slide review pending Neut % (Auto) 94.7 H Lymph % (Auto) 1.2 L [place] % (Auto) 3.8 Eos % (Auto) 0.1 Baso % (Auto) 0.2 Neut # (Auto) 4.7 Lymph # (Auto) 0.1 L [place] # (Auto) 0.2 Eos # (Auto) 0.0 Baso # (Auto) 0.0 WBC Differential Manual diff final Seg Neuts % (Manual) 86 H Band Neuts % (Manual) 11 H Lymphocytes % (Manual) Monocytes % (Manual) 3 Abs Neuts (Manual) 4.8 Differential Comment . Dohle Bodies Present H Platelet Estimate Low L Platelet Morphology Normal Acanthocytes (Spur) Occ H Sodium Potassium Chloride Carbon Dioxide Anion Gap BUN Creatinine Estimated GFR POC Glucose 132 H 143 H Random Glucose Calcium Phosphorus Magnesium Tacrolimus MTS Gel Crossmatch 04/27/18 04/27/18 04/27/18 03:31 03:31 04:48 WBC 4.8 RBC 2.09 L Hgb 7.0 L Hct 20.3 L* MCV 97.4 MCH 33.5 MCHC 34.4 RDW 15.1 Plt Count 90 L MPV 9.5 Prelim Diff (Auto) Slide review pending Neut % (Auto) 91.4 H Lymph % (Auto) 1.9 L [place] % (Auto) 6.6 Eos % (Auto) 0.0 Baso % (Auto) 0.1 Neut # (Auto) 4.4 Lymph # (Auto) 0.1 L [place] # (Auto) 0.3 Eos # (Auto) 0.0 Baso # (Auto) 0.0 WBC Differential Manual diff final Seg Neuts % (Manual) 72 H Band Neuts % (Manual) 26 H Lymphocytes % (Manual) 2 L Monocytes % (Manual) Abs Neuts (Manual) 4.7 Differential Comment . Dohle Bodies Present H Platelet Estimate Low L Platelet Morphology Enlarged H Acanthocytes (Spur) Sodium 136 Potassium 5.1 Chloride 101 Carbon Dioxide 16.0 L Anion Gap 19 H BUN 89 H Creatinine 14.41 H* Estimated GFR 4 L POC Glucose 99 Random Glucose 93 Calcium 8.3 L Phosphorus 7.5 H Magnesium 2.2 Tacrolimus MTS Gel Crossmatch - Procedures 1. donor renal transplant , with renal allograft to [facility]'s right iliac fossa.. please use 22 modifier due to case being much harder than average due to severe atherosclerosis of the iliac artery 2. Complex backbench preparation of right donor kidney 3. Placement of ureteral stent Assessment and Plan - Assessment (1) Diabetes mellitus type 2, diet-controlled Code(s): E11.9 - Type 2 diabetes mellitus without complications Status: Chronic (2) History of hypertension Code(s): Z86.79 - Personal history of other diseases of the circulatory system Status: Chronic (3) End stage renal disease Code(s): N18.6 - End stage renal disease Status: Chronic - Plan Post op Day: 2 Patient: Mr Carvajal is status post DDKT for ESRD secondary to DM/htn. 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 Allograft function: Continued elevated creatinine and potassium. On Veltassa. Additional 15 grams of kayexalate given. Weight remains stable. No significant increase in last couple days, although up from 67 kg at admit. No significant response to lasix/bumex thus far. Will start 80 mg lasix twice daily and see what response is. Don't think HD warranted at this point, but may require at some point in near future. On low dose prograf (2 mg), increased to 4 mg bid. Tolerated regular consistency diabetic-renal diet. + flatus, but no BM, abd min- mod distended and denies N/V--will give additional dulcolax supp today. On colace. Continue insulin sliding scale. Will continue daily standing weight. B SCDs. 1 mg/kg thymo today. On Flomax Remove campbell, will do PVR after each void. Hgb 7.0 this AM. Recheck pending Immunosuppression: Thymo induction; Maint: steroids + Cellcept 1000 mg BID + Tacrolimus 4 mg BID
[2018-04-27 09:52] LABS: Baso % (Auto) 0.1 % (0.0-2.0); Eos % (Auto) 0.1 % (0.0-4.0); Hematocrit 23.3 % (39.0-51.0); Hemoglobin 7.9 gm/dL (13.0-17.0); Lymph # (Auto) 0.1 th/mm3 (1.0-4.8); Mean Corpuscular Hemoglobin 33.6 pg (27.0-34.0); Mean Corpuscular Volume 98.8 fL (80.0-100.0); Mean Platelet Volume 8.9 fL (7.0-11.0); Mono # (Auto) 0.4 th/mm3 (0.0-0.9); Mono % (Auto) 8.8 % (0.0-8.0); Neut # (Auto) 4.3 th/mm3 (1.8-7.7); Platelet Count 100 th/mm3 (150-450); Red Blood Count 2.36 mil/mm3 (4.50-5.90); Red Cell Distribution Width 14.9 % (11.6-17.2); White Blood Count 4.9 th/mm3 (4.0-11.0)
[2018-04-27] MEDS: Nystatin Liq 500,000 UNIT/5 ML UDC SWISH-SWAL SCH ×4 (10:00→20:29)
[2018-04-27] MEDS: hydrALAZINE 50 MG Tablet PO SCH ×3 (10:07→21:03)
[2018-04-27] MEDS ORDERED: MethylPREDNISolone Sod Succinate Inj 125 MG/2 ML Vial IV.PUSH ONE (11:00)
[2018-04-27] MEDS ORDERED: Acetaminophen 325 MG Tablet PO ONE (11:00)
[2018-04-27] MEDS ORDERED: ANTITHYMOCYTE IG IV.SIG ONE (12:00)
[2018-04-27] MEDS ORDERED: SODIUM CHLOR 0.9% IV.SIG ONE (12:00)
[2018-04-27] MEDS ORDERED: Bisacodyl 10 MG Supp RECTAL PRN (13:36)
--- NOTE | 2018-04-27 16:25 | P.DIET ---
Nutritional Evaluation Type of nutrition evaluation: follow-up Screening comments: F/U Nutrition Assessment and beginning of nutrition education for kidney transplant pt. Subjective Subjective Comments: Pt states he is feeling much better. He reports he ate a good part of his lunch. Objective - Diagnosis Kidney Transplant - Objective % IBW: 83 Body Weight Used for Calculations: Actual Energy Needs - Lower Range (kCal/kg): 30 Energy Needs - Upper Range (kCal/kg): 35 Lower Limit kCal/kg (kCals): 2,010 Upper Limit kCal/kg (kCals): 2,345 Lower Limit Protein Factor (Grams per Kg): 1.2 Upper Limit Protein Factor (Grams per Kg): 1.5 Lower Protein Needs (Protein): 74 Upper Protein Needs (Protein): 101 Dietitian Reviewed in Medical Record: Current diet, Curent medications, Intake & Output, Labs, Medical history Diet Order: 1800 ADA, 50 gm Pro, 2 gm Na, 40 meq K Objective Comments: Pt's nutritional needs based on 67kg PMH: Hypertension, diabetes mellitus, end-stage renal disease, was on hemodialysis, history of hepatitis C, history of bladder cancer. Labs include: Cr 14.4, K+ 5.1, Phos 7.5, Iron 19, TIBC 244, % sat 7.8, Glu 93, POC Glu 156, 132 UOP: 188mls Assessment Assessment: Pt at nutritional risk r/t current clinical status. POD #2, pt s/p DDKT on 04/24 for ESRD secondary to DM/HTN. Pt's started on solid food this lunchtime and tolerated it well. UOP is slowly increasing, Creatinine, K+ and Phos remain elevated. Reviewed MD notes, kidney US. Pt is (-) for BM however, during my visit, he told me the suppository was working and he had to go. Began nutrition education post transplant with pt. Discussed current restrictions as kidney begins to function. Started reviewing basic nutrition guidelines, will provide indepth education prior to d/c. Will monitor kidney function with the transplant team. Recommendations: POD #2, Pt s/p DDKT on 7/ Pt's diet advanced to solids, po intake 50% Began nutrition education post-tx with pt. Will provide in-depth diet education prior to discharge Following pt with the transplant team Dietitian to Monitor: Lab values, Renal labs, Intake & Output, Diet tolerance, Weight change, PO Intake, Diet advancement, Medical course
[2018-04-27] MEDS: Dextrose 5%/NaCl 0.45% Inj 1,000 ML IV.CONT SCH (16:46)
--- NOTE | 2018-04-27 17:53 | P.PN ---
Subjective Interval history: Patient is alert, no SOB, eating better, not in distress. Physical Exam Vital signs: Vital Signs 04/26/18 18:00 04/26/18 19:00 04/26/18 20:00 Temperature 99.1 F Pulse Rate 101 H 73 Respiratory Rate 14 Blood Pressure 155/78 H Pulse Oximetry 92 L 95 04/26/18 23:00 04/26/18 23:08 04/27/18 00:08 Temperature 98.4 F Pulse Rate 98 H 92 H 92 H Respiratory Rate 14 Blood Pressure 186/92 H Pulse Oximetry 04/27/18 01:00 04/27/18 01:20 04/27/18 02:00 Temperature Pulse Rate 91 H 94 H 93 H Respiratory Rate Blood Pressure 190/95 H Pulse Oximetry 04/27/18 03:00 04/27/18 04:00 04/27/18 04:07 Temperature 98.6 F Pulse Rate 92 H 96 H 101 H Respiratory Rate 14 14 Blood Pressure 186/96 H 171/86 H Pulse Oximetry 04/27/18 05:00 04/27/18 06:00 04/27/18 07:00 Temperature 98.7 F Pulse Rate 98 H 99 H 98 H Respiratory Rate 16 Blood Pressure 136/76 Pulse Oximetry 04/27/18 08:00 04/27/18 09:00 04/27/18 10:00 Temperature Pulse Rate 89 94 H 92 H Respiratory Rate Blood Pressure Pulse Oximetry 94 L 04/27/18 11:00 04/27/18 12:00 04/27/18 13:00 Temperature 97.9 F Pulse Rate 88 88 86 Respiratory Rate 18 Blood Pressure 152/82 H Pulse Oximetry 04/27/18 14:00 04/27/18 15:00 04/27/18 16:00 Temperature 98 F Pulse Rate 92 H 87 99 H Respiratory Rate 18 Blood Pressure 166/92 H Pulse Oximetry 04/27/18 17:00 Temperature Pulse Rate 94 H Respiratory Rate Blood Pressure Pulse Oximetry Intake & Output 04/26/18 04/27/18 04/27/18 18:59 06:59 18:59 Intake Total 1762 / 1762 240 / 240 1500 / 1500 Output Total 62 / 62 134 / 134 69 / 69 Balance 1700 / 1700 106 / 106 1431 / 1431 Weight 72.3 kg 72.4 kg Intake: IV 1062 / 1062 1500 / 1500 D5W/1/2 NS Inj 1,000 ML @ 40 1000 / 1000 1000 / 1000 mls/hr IV.CONT .Q24H [facility] Rx#: [id number] Cardene Inj 25 MG In NS Inj 240 62 / 62 500 / 500 ML @ 5 MG/HR 50 mls/hr IV.CONT TITRATE PRN Rx#:[id number] Oral 700 / 700 240 / 240 Output: Urine 3 / 3 Urine Amount (Catheter) 129 / 129 69 / 69 Indwelling Urethral Catheter 129 / 129 69 / 69 Wound Drainage # 1 Right Abdomen Nick Other: Date of Last Bowel Movement 04/24/18 - Constitutional no acute distress - Routine HEENT Exam Head: Present: normocephalic - Routine Neck Exam Present: supple - Routine Respiratory Exam Present: CTA bilaterally, distant breath sounds, diminished air movement - Routine Cardiovascular Exam Present: S1, S2 - Routine Abdominal Exam Present: soft, normoactive bowel sounds, distended - Routine Extremities Exam Present: edema - Routine Neurological Exam Present: alert, oriented X3 - Detailed Neurological Exam: Coma Scale Verbal Response: Oriented Motor Response: Obey commands - Urinary Catheter Management Indwelling Urethral Catheter Cath placed during this visit: yes Urethral indwelling: Yes Reason for continuing: Hourly intake/output Insertion date: 04/24/18 Insertion time: 13:00 Results - Labs CBC & Chem 7: 04/27/18 09:43 04/27/18 03:31 Laboratory Results - last 24 hr 04/24/18 04/26/18 04/26/18 00:30 19:13 22:22 WBC 4.9 RBC 2.24 L Hgb 7.5 L Hct 22.0 L MCV 98.5 MCH 33.4 MCHC 33.9 RDW 15.1 Plt Count 92 L MPV 9.7 Prelim Diff (Auto) Slide review pending Neut % (Auto) 94.7 H Lymph % (Auto) 1.2 L [place] % (Auto) 3.8 Eos % (Auto) 0.1 Baso % (Auto) 0.2 Neut # (Auto) 4.7 Lymph # (Auto) 0.1 L [place] # (Auto) 0.2 Eos # (Auto) 0.0 Baso # (Auto) 0.0 WBC Differential Manual diff final Seg Neuts % (Manual) 86 H Band Neuts % (Manual) 11 H Lymphocytes % (Manual) Monocytes % (Manual) 3 Abs Neuts (Manual) 4.8 Differential Comment . Dohle Bodies Present H Platelet Estimate Low L Platelet Morphology Normal Acanthocytes (Spur) Occ H Sodium Potassium Chloride Carbon Dioxide Anion Gap BUN Creatinine Estimated GFR POC Glucose 132 H Random Glucose Calcium Phosphorus Magnesium Tacrolimus MTS Gel Crossmatch See Detail 04/27/18 04/27/18 04/27/18 01:10 03:31 03:31 WBC 4.8 RBC 2.09 L Hgb 7.0 L Hct 20.3 L* MCV 97.4 MCH 33.5 MCHC 34.4 RDW 15.1 Plt Count 90 L MPV 9.5 Prelim Diff (Auto) Slide review pending Neut % (Auto) 91.4 H Lymph % (Auto) 1.9 L [place] % (Auto) 6.6 Eos % (Auto) 0.0 Baso % (Auto) 0.1 Neut # (Auto) 4.4 Lymph # (Auto) 0.1 L [place] # (Auto) 0.3 Eos # (Auto) 0.0 Baso # (Auto) 0.0 WBC Differential Manual diff final Seg Neuts % (Manual) 72 H Band Neuts % (Manual) 26 H Lymphocytes % (Manual) 2 L Monocytes % (Manual) Abs Neuts (Manual) 4.7 Differential Comment . Dohle Bodies Present H Platelet Estimate Low L Platelet Morphology Enlarged H Acanthocytes (Spur) Sodium 136 Potassium 5.1 Chloride 101 Carbon Dioxide 16.0 L Anion Gap 19 H BUN 89 H Creatinine 14.41 H* Estimated GFR 4 L POC Glucose 143 H Random Glucose 93 Calcium 8.3 L Phosphorus 7.5 H Magnesium 2.2 Tacrolimus MTS Gel Crossmatch 04/27/18 04/27/18 04/27/18 04:48 05:00 09:41 WBC RBC Hgb Hct MCV MCH MCHC RDW Plt Count MPV Prelim Diff (Auto) Neut % (Auto) Lymph % (Auto) [place] % (Auto) Eos % (Auto) Baso % (Auto) Neut # (Auto) Lymph # (Auto) [place] # (Auto) Eos # (Auto) Baso # (Auto) WBC Differential Seg Neuts % (Manual) Band Neuts % (Manual) Lymphocytes % (Manual) Monocytes % (Manual) Abs Neuts (Manual) Differential Comment Dohle Bodies Platelet Estimate Platelet Morphology Acanthocytes (Spur) Sodium Potassium Chloride Carbon Dioxide Anion Gap BUN Creatinine Estimated GFR POC Glucose 99 156 H Random Glucose Calcium Phosphorus Magnesium Tacrolimus Less than 2.0 L MTS Gel Crossmatch 04/27/18 04/27/18 04/27/18 09:43 12:25 16:37 WBC 4.9 RBC 2.36 L Hgb 7.9 L Hct 23.3 L MCV 98.8 MCH 33.6 MCHC 34.0 RDW 14.9 Plt Count 100 L MPV 8.9 Prelim Diff (Auto) Neut % (Auto) 89.0 H Lymph % (Auto) 2.0 L [place] % (Auto) 8.8 H Eos % (Auto) 0.1 Baso % (Auto) 0.1 Neut # (Auto) 4.3 Lymph # (Auto) 0.1 L [place] # (Auto) 0.4 Eos # (Auto) 0.0 Baso # (Auto) 0.0 WBC Differential . Seg Neuts % (Manual) Band Neuts % (Manual) Lymphocytes % (Manual) Monocytes % (Manual) Abs Neuts (Manual) Differential Comment Auto diff final Dohle Bodies Platelet Estimate Platelet Morphology Acanthocytes (Spur) Sodium Potassium Chloride Carbon Dioxide Anion Gap BUN Creatinine Estimated GFR POC Glucose 132 H 168 H Random Glucose Calcium Phosphorus Magnesium Tacrolimus MTS Gel Crossmatch - Procedures 1. donor renal transplant , with renal allograft to [facility]'s right iliac fossa.. please use 22 modifier due to case being much harder than average due to severe atherosclerosis of the iliac artery 2. Complex backbench preparation of right donor kidney 3. Placement of ureteral stent Assessment and Plan - Plan Assessment: 1. Post Cadaveric Renal Transplant. 2. End Stage renal disease. 3. Hypertension. 4. Hyperkalemia. 5. Anemia. Plan: Patient has DGF and still the urine out put is low. K was elevated and now normal. On CellCept and also given ATG. Started on Tacrolimus 2 mg BID. BP is off and on elevated, now off Nicardipine since 12.30 pm. I will increase hydralazine 100 mg PO TID. Continue IV Labetalol and Hydralazine PRN. Hgb. is stable. Plan for discharge in next 2-3 days. Watch BMP closely and decide about HD. Urine out put is low, on diuretics.
[2018-04-28] MEDS: Insulin NovoLOG Aspart Correctional Sugar Inj SQ SCH ×6 (00:31→21:42)
[2018-04-28 05:42] LABS: Baso % (Auto) 0.1 % (0.0-2.0); Eos % (Auto) 0.1 % (0.0-4.0); Lymph # (Auto) 0.1 th/mm3 (1.0-4.8); Lymph % (Auto) 2.1 % (9.0-44.0); Mean Corpuscular HGB Conc 34.1 % (32.0-36.0); Mean Corpuscular Volume 96.9 fL (80.0-100.0); Mean Platelet Volume 9.4 fL (7.0-11.0); Mono # (Auto) 0.2 th/mm3 (0.0-0.9); Mono % (Auto) 9.4 % (0.0-8.0); Neut # (Auto) 2.2 th/mm3 (1.8-7.7); Neut % (Auto) 88.3 % (16.0-70.0); Platelet Count 84 th/mm3 (150-450); Red Blood Count 2.13 mil/mm3 (4.50-5.90); Red Cell Distribution Width 14.6 % (11.6-17.2); White Blood Count 2.5 th/mm3 (4.0-11.0)
[2018-04-28 05:51] LABS: Hematocrit 20.6 % (39.0-51.0)
[2018-04-28 06:15] LABS: Calcium 8.3 mg/dL (8.5-10.1); Carbon Dioxide 17.8 meq/L (21.0-32.0); Magnesium 2.1 mg/dL (1.5-2.5); Phosphorus 7.7 mg/dL (2.5-4.9)
[2018-04-28] MEDS: niCARdipine Inj 25 MG in Sodium Chlor 0.9% Inj 240 ML IV.CONT PRN ×3 (06:21→17:25)
[2018-04-28] MEDS: hydrALAZINE 50 MG Tablet PO SCH (06:24)
[2018-04-28 07:34] LABS: Platelet Morphology Normal (Normal)
[2018-04-28 08:29] LABS: Hemoglobin 7.8 gm/dL (13.0-17.0)
[2018-04-28] MEDS: Docusate Sodium 100 MG Capsule PO SCH ×2 (09:04→21:44)
[2018-04-28] MEDS: Vitamin B Complex/Vit C/Folic Tablet PO SCH (09:04)
[2018-04-28] MEDS: Carvedilol 12.5 MG Tablet PO SCH ×2 (09:04→21:44)
[2018-04-28] MEDS: Nystatin Liq 500,000 UNIT/5 ML UDC SWISH-SWAL SCH ×4 (09:04→21:45)
[2018-04-28] MEDS: amLODIPine 10 MG Tablet PO SCH (09:05)
--- NOTE | 2018-04-28 09:11 | P.PNTS ---
Subjective Interval history: Denies any new c/o. Rohan po. + BM Physical Exam Vital signs: Vital Signs 04/27/18 10:00 04/27/18 11:00 04/27/18 12:00 Temperature 97.9 F Pulse Rate 92 H 88 88 Respiratory Rate 18 Blood Pressure 152/82 H Pulse Oximetry 04/27/18 13:00 04/27/18 14:00 04/27/18 15:00 Temperature 98 F Pulse Rate 86 92 H 87 Respiratory Rate 18 Blood Pressure 166/92 H Pulse Oximetry 04/27/18 16:00 04/27/18 17:00 04/27/18 20:00 Temperature 98.1 F Pulse Rate 99 H 94 H 99 H Respiratory Rate 16 Blood Pressure 144/74 H Pulse Oximetry 04/27/18 21:28 04/27/18 22:00 04/28/18 00:00 Temperature 97.9 F Pulse Rate 86 94 H Respiratory Rate 16 Blood Pressure 131/70 Pulse Oximetry 97 94 L 04/28/18 02:00 04/28/18 04:00 04/28/18 06:00 Temperature 97.8 F Pulse Rate 94 H 81 85 Respiratory Rate 16 Blood Pressure 123/72 Pulse Oximetry 04/28/18 07:00 04/28/18 08:00 Temperature 97.5 F L Pulse Rate 88 87 Respiratory Rate 14 Blood Pressure 133/71 Pulse Oximetry 97 97 Intake & Output 04/27/18 04/28/18 04/28/18 18:59 06:59 18:59 Intake Total 2460 / 2460 180 / 180 Output Total 0 / 0 Balance 2391 / 2391 180 / 180 -15 / -15 Weight 72.4 kg 78 kg Intake: IV 1500 / 1500 D5W/1/2 NS Inj 1,000 ML @ 40 1000 / 1000 mls/hr IV.CONT .Q24H [facility] Rx#: [id number] Cardene Inj 25 MG In NS Inj 240 500 / 500 ML @ 5 MG/HR 50 mls/hr IV.CONT TITRATE PRN Rx#:[id number] Oral 960 / 960 180 / 180 Output: Urine 0 / 0 Urine Amount (Catheter) Indwelling Urethral Catheter Wound Drainage # 1 Right Abdomen Nick Other: Date of Last Bowel Movement 04/27/18 04/27/18 04/27/18 # Bowel Movements 1 - Constitutional no acute distress - Routine HEENT Exam Head: Present: normocephalic, atraumatic Eye: Present: EOMI - Routine Respiratory Exam Present: CTA bilaterally - Routine Cardiovascular Exam Present: RRR, S1, S2 - Routine Abdominal Exam Present: soft, normoactive bowel sounds Comments: Abd soft, approp tender, min distended, wound CDI without EFT. - Routine Extremities Exam Present: pulses intact - Routine Neurological Exam Present: alert, oriented X3 - Routine Psychiatric Exam Present: normal affect, normal thought process - Urinary Catheter Management Indwelling Urethral Catheter Cath placed during this visit: yes, but has since been removed by the nurse Urethral indwelling: No Reason for continuing: Decision to DC catheter Insertion date: 04/24/18 Insertion time: 13:00 Removal date: 04/27/18 Removal time: 21:00 Results - Labs CBC & Chem 7: 04/28/18 08:00 04/28/18 05:00 Laboratory Results - last 24 hr 04/27/18 04/27/18 04/27/18 05:00 09:41 09:43 WBC 4.9 RBC 2.36 L Hgb 7.9 L Hct 23.3 L MCV 98.8 MCH 33.6 MCHC 34.0 RDW 14.9 Plt Count 100 L MPV 8.9 Prelim Diff (Auto) Neut % (Auto) 89.0 H Lymph % (Auto) 2.0 L [place] % (Auto) 8.8 H Eos % (Auto) 0.1 Baso % (Auto) 0.1 Neut # (Auto) 4.3 Lymph # (Auto) 0.1 L [place] # (Auto) 0.4 Eos # (Auto) 0.0 Baso # (Auto) 0.0 WBC Differential . Diff Scan Differential Comment Auto diff final Platelet Estimate Platelet Morphology Sodium Potassium Chloride Carbon Dioxide Anion Gap BUN Creatinine Estimated GFR POC Glucose 156 H Random Glucose Calcium Phosphorus Magnesium Tacrolimus Less than 2.0 L 04/27/18 04/27/18 04/27/18 12:25 16:37 20:13 WBC RBC Hgb Hct MCV MCH MCHC RDW Plt Count MPV Prelim Diff (Auto) Neut % (Auto) Lymph % (Auto) [place] % (Auto) Eos % (Auto) Baso % (Auto) Neut # (Auto) Lymph # (Auto) [place] # (Auto) Eos # (Auto) Baso # (Auto) WBC Differential Diff Scan Differential Comment Platelet Estimate Platelet Morphology Sodium Potassium Chloride Carbon Dioxide Anion Gap BUN Creatinine Estimated GFR POC Glucose 132 H 168 H 169 H Random Glucose Calcium Phosphorus Magnesium Tacrolimus 04/28/18 04/28/18 04/28/18 00:12 04:13 05:00 WBC 2.5 L RBC 2.13 L Hgb 7.0 L Hct 20.6 L* MCV 96.9 MCH 33.0 MCHC 34.1 RDW 14.6 Plt Count 84 L MPV 9.4 Prelim Diff (Auto) Slide review pending Neut % (Auto) 88.3 H Lymph % (Auto) 2.1 L [place] % (Auto) 9.4 H Eos % (Auto) 0.1 Baso % (Auto) 0.1 Neut # (Auto) 2.2 Lymph # (Auto) 0.1 L [place] # (Auto) 0.2 Eos # (Auto) 0.0 Baso # (Auto) 0.0 WBC Differential . Diff Scan Auto diff confirmed Differential Comment . Platelet Estimate Low L Platelet Morphology Normal Sodium Potassium Chloride Carbon Dioxide Anion Gap BUN Creatinine Estimated GFR POC Glucose 83 102 Random Glucose Calcium Phosphorus Magnesium Tacrolimus 04/28/18 04/28/18 04/28/18 05:00 08:00 08:05 WBC RBC Hgb 7.8 L Hct 23.0 L MCV MCH MCHC RDW Plt Count MPV Prelim Diff (Auto) Neut % (Auto) Lymph % (Auto) [place] % (Auto) Eos % (Auto) Baso % (Auto) Neut # (Auto) Lymph # (Auto) [place] # (Auto) Eos # (Auto) Baso # (Auto) WBC Differential Diff Scan Differential Comment Platelet Estimate Platelet Morphology Sodium 136 Potassium 5.0 Chloride 101 Carbon Dioxide 17.8 L Anion Gap 17 H BUN 104 H Creatinine 15.13 H* Estimated GFR 4 L POC Glucose 146 H Random Glucose 105 Calcium 8.3 L Phosphorus 7.7 H Magnesium 2.1 Tacrolimus - Procedures 1. donor renal transplant , [facility]'s right iliac fossa.. please use 22 modifier due to case being much harder than average due to severe atherosclerosis of the iliac artery 2. Complex backbench preparation of right donor kidney 3. Placement of ureteral stent Assessment and Plan - Assessment (1) Diabetes mellitus type 2, diet-controlled Code(s): E11.9 - Type 2 diabetes mellitus without complications Status: Chronic (2) History of hypertension Code(s): Z86.79 - Personal history of other diseases of the circulatory system Status: Chronic (3) End stage renal disease Code(s): N18.6 - End stage renal disease Status: Chronic - Plan Post op Day: 4 Patient: Mr Carvajal is status post DDKT for ESRD secondary to DM/htn. 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 Allograft function: Continued elevated creatinine and potassium. On Velt[place]. Weight remains stable. No significant increase in last couple days, although up from 67 kg at admit. No significant response to lasix/bumex thus far. Continue 80 mg lasix twice daily. HD today (increased weight/ BUN/ K 5.0). On prograf 4 mg bid. Tolerated regular consistency diabetic-renal diet. + flatus, but no BM, abd min- mod distended and denies N/V--will give additional dulcolax supp today. On colace. Continue insulin sliding scale. Will continue daily standing weight. B SCDs. Will plan to give 1 mg/kg thymo tomorrow, which will complete thymo postop dosing. On Flomax. Hgb 7.0 this AM. Recheck pending Immunosuppression: Thymo induction; Maint: steroids + Cellcept 1000 mg BID + Tacrolimus 4 mg BID
[2018-04-28] MEDS ORDERED: Sod Chloride 0.9% Inj 1,000 ML OTHER PRN ×2 (12:02)
[2018-04-28] MEDS ORDERED: Heparin 10,000 UNITS/10 ML Vial (for IV use) IV.FLUSH PRN (12:02)
[2018-04-28] MEDS ORDERED: Heparin 10,000 UNITS/10 ML Vial (for IV use) OTHER PRN (12:02)
[2018-04-28] MEDS ORDERED: Gelatin 12 MM/7 MM Topical Foam TOPICAL PRN (12:02)
[2018-04-28] MEDS ORDERED: Albumin Human 25% Inj 100 ML IV.SIG PRN (12:02)
[2018-04-28] MEDS ORDERED: Sod Chloride 0.9% Inj 1,000 ML IV.CONT PRN (12:02)
[2018-04-28] MEDS ORDERED: Acetaminophen 325 MG Tablet PO PRN (12:02)
--- NOTE | 2018-04-28 12:06 | P.PNCC ---
Subjective Subjective Remarks/Hospital Course: Hospital Course: 67 year-old male with a history of ESRD, hypertension, and diet-controlled type 2 diabetes mellitus who presented to the hospital under the hospitalist service for renal transplant. He has been on HD for 5 years and makes only drops of urine now. He denies any recent fever, chills, chest pain, shortness of breath , nausea, vomiting, diarrhea, or pain. He underwent renal transplantation today and post procedure he was found to have elevated blood pressure on and off difficult to control. 04/26: off cardene. BP improved into 140s/150s. goal sbp 130 - 160. denies complaints ROS negative. 04/27: Reconsulted for uncontrolled hypertension back on a Cardene drip 04/28: remains on nicardipine infusion. hydralazine increased to 75, then 100mg q8h yesterday without significant improvement. Cr also continues to rise: plan for HD today per transplant team. Objective Vital Signs / I&O: Vital Signs 04/27/18 12:00 04/27/18 13:00 04/27/18 14:00 Temperature Pulse Rate 88 86 92 H Respiratory Rate Blood Pressure Pulse Oximetry 04/27/18 15:00 04/27/18 16:00 04/27/18 17:00 Temperature 36.6 C Pulse Rate 87 99 H 94 H Respiratory Rate 18 Blood Pressure 166/92 H Pulse Oximetry 04/27/18 20:00 04/27/18 21:28 04/27/18 22:00 Temperature 36.7 C Pulse Rate 99 H 86 Respiratory Rate 16 Blood Pressure 144/74 H Pulse Oximetry 97 04/28/18 00:00 04/28/18 02:00 04/28/18 04:00 Temperature 36.6 C 36.6 C Pulse Rate 94 H 94 H 81 Respiratory Rate 16 16 Blood Pressure 131/70 123/72 Pulse Oximetry 94 L 04/28/18 06:00 04/28/18 07:00 04/28/18 08:00 Temperature 36.4 C L Pulse Rate 85 88 87 Respiratory Rate 14 Blood Pressure 133/71 Pulse Oximetry 97 97 Intake & Output 04/27/18 04/28/18 04/28/18 18:59 06:59 18:59 Intake Total 2460 / 2460 180 / 180 Output Total 69 / 69 0 / 0 15 / 15 Balance 2391 / 2391 180 / 180 -15 / -15 Weight 72.4 kg 78 kg Intake: IV 1500 / 1500 D5W/1/2 NS Inj 1,000 ML @ 40 1000 / 1000 mls/hr IV.CONT .Q24H [facility] Rx#: [id number] Cardene Inj 25 MG In NS Inj 240 500 / 500 ML @ 5 MG/HR 50 mls/hr IV.CONT TITRATE PRN Rx#:[id number] Oral 960 / 960 180 / 180 Output: Urine 0 / 0 Urine Amount (Catheter) Indwelling Urethral Catheter Wound Drainage # 1 Right Abdomen Nick Other: Date of Last Bowel Movement 04/27/18 04/27/18 04/27/18 # Bowel Movements 1 Result Diagrams: 04/28/18 08:00 04/28/18 05:00 Objective Remarks: GENERAL: Middle-age male, lying in bed, no acute distress HEENT: Normocephalic. Atraumatic. Pupils equal, round, reactive, conjugate. Mucous membranes are moist NECK: Trachea is midline. There is no JVD. CHEST: Equal chest rise. Unlabored. Nasal cannula. CARDIOVASCULAR: Normal rate, regular rhythm. Sinus. ABDOMEN: Soft, nontender, nondistended. No guarding. Inguinal incision is clean dry and intact. MUSCULOSKELETAL: Pulses 2+. No peripheral edema. NEUROLOGICAL: RASS 0. CAM -. Follows commands. No focal deficits. Assessment and Plan - Assessment and Plan Plan: Assessment: 67yM with ESRD s/p DDKT, course complicated by severe hypertension and likely now delayed graft function. s/p DDKTx - anti-rejection meds per Dr. Melton. - likely plan for Thymo tomorrow. - strict i/o's ESRD -Status post renal transplantation -Management per transplant surgeon and [employer] - likely HD today. Hypertension -Hydralazine 100mg po q8hr - carvedilol 25mg po BID - amlodipine 10mg daily - add clonidine 0.2mg po q8h- can increase to 0.3mg tonight or in the AM if not at goal. -Labetalol as needed - continue nicardpine infusion. wean as tolerated. Type 2 diabetes mellitus -Diet-controlled -Insulin sliding scale Anemia - combination secondary to blood loss and dilutional. recheck hgb 7.8. doubt this is acute bleeding and much more likely to be dilutional effect from volume overload. would recommend holding off on blood transfusion for now. Acute intravascular volume overload - likely will need HD today. weights have been stable, but anemia appears dilutional. Hyperkalemia - likely HD today. DVT GI prophylaxis -Teds SCDs -Pharmacological DVT prophylaxis per transplant surgeon -1999 ADA Dispo: remain in ICU while on vasodilators. Critical care team will continue to follow as long as patient remains in the CVICU.
--- NOTE | 2018-04-28 12:49 | NM ---
EXAM DATE: 04/28/2018 12:07 PM EDT AGE/SEX: 67 years / Male INDICATIONS: Renal failure. Transplant kidney. CLINICAL DATA: This is the patient's initial encounter. Patient reports that signs and symptoms have been present for 2 days and indicates a pain score of 5/10. MEDICAL/SURGICAL HISTORY: Carcinoma, bladder. Carcinoma, thyroid. Renal disease, end stage. Hypertension and renal osteodystrophy. Thyroidectomy. Cholecystectomy. Bladder surgery. COMPARISON: No prior exams available for comparison. TECHNIQUE: A static anterior image of the pelvis and renal transplant was performed after intravenou s administration of sulfur colloid. Following the intravenous administration of DTPA, dynamic imagin g of flow and excretory phases was performed. IV Lasix was given at 13 minutes. DOSE: 3.1 mCi Tc99m Sulfur Colloid IV 20.2 mCi Tc99m DTPA IV MEDICATION: 40 mg Lasix IV at 13 minute. minutes. FINDINGS: Flow: There appears to be flow to the transplanted kidney along the right side of the pelvis. Colloid Uptake: No significant uptake of colloid is seen in the transplant. Excretion: There is no evidence of excretion Post-Diuretic: There is no evidence of excretion. The findings were called by telephone to the ordering physician. CONCLUSION: 1. There does appear to be flow to the right transplanted kidney.. 2. However, there does not appear to be any significant uptake of sulfur colloid into the renal pare nchyma. There is no evidence of excretion. These findings can be seen with acute rejection versus non function. Electronically signed by: Nick Bautista MD 04/28/2018 12:48 PM EDT
--- NOTE | 2018-04-28 13:05 | P.PNNP ---
Subjective Interval history: Patient is alert, sitting on the chair, and eating the lunch, not in distress. Physical Exam Vital signs: Vital Signs 04/27/18 14:00 04/27/18 15:00 04/27/18 16:00 Temperature 98 F Pulse Rate 92 H 87 99 H Respiratory Rate 18 Blood Pressure 166/92 H Pulse Oximetry 04/27/18 17:00 04/27/18 20:00 04/27/18 21:28 Temperature 98.1 F Pulse Rate 94 H 99 H Respiratory Rate 16 Blood Pressure 144/74 H Pulse Oximetry 97 04/27/18 22:00 04/28/18 00:00 04/28/18 02:00 Temperature 97.9 F Pulse Rate 86 94 H 94 H Respiratory Rate 16 Blood Pressure 131/70 Pulse Oximetry 94 L 04/28/18 04:00 04/28/18 06:00 04/28/18 07:00 Temperature 97.8 F 97.5 F L Pulse Rate 81 85 88 Respiratory Rate 16 14 Blood Pressure 123/72 133/71 Pulse Oximetry 97 04/28/18 08:00 Temperature Pulse Rate 87 Respiratory Rate Blood Pressure Pulse Oximetry 97 Intake & Output 04/27/18 04/28/18 04/28/18 18:59 06:59 18:59 Intake Total 2460 / 2460 180 / 180 250 / 250 Output Total 0 / 0 Balance 2391 / 2391 180 / 180 235 / 235 Weight 72.4 kg 78 kg Intake: IV 1500 / 1500 250 / 250 D5W/1/2 NS Inj 1,000 ML @ 40 1000 / 1000 mls/hr IV.CONT .Q24H [facility] Rx#: [id number] Cardene Inj 25 MG In NS Inj 240 500 / 500 250 / 250 ML @ 5 MG/HR 50 mls/hr IV.CONT TITRATE PRN Rx#:[id number] Oral 960 / 960 180 / 180 Output: Urine 0 / 0 Urine Amount (Catheter) Indwelling Urethral Catheter Wound Drainage # 1 Right Abdomen Nick Other: Date of Last Bowel Movement 04/27/18 04/27/18 04/27/18 # Bowel Movements 1 Narrative: - Constitutional no acute distress, average body habitus - Routine HEENT Exam Head: Present: normocephalic, atraumatic - Routine Neck Exam Present: supple. Absent: JVD - Routine Respiratory Exam Present: CTA bilaterally. Absent: wheezes, crackles - Routine Cardiovascular Exam Present: RRR, S1, S2. Absent: murmur - Routine Abdominal Exam Present: soft, normoactive bowel sounds. Absent: tenderness, distended dry dressing right lower with HARISH drain. Hou catheter in place - Routine Extremities Exam Present: pulses intact. Absent: edema - Routine Skin Exam Present: intact, dry, warm - Routine Neurological Exam Present: alert, oriented X3, normal speech - Constitutional no acute distress - Routine HEENT Exam Head: Present: normocephalic - Routine Neck Exam Present: supple - Routine Respiratory Exam Present: decreased breath sounds, rhonchi, diminished air movement - Routine Abdominal Exam Present: soft, normoactive bowel sounds, distended - Routine Extremities Exam Present: edema - Routine Neurological Exam Present: alert, oriented X3 - Detailed Neurological Exam: Coma Scale Verbal Response: Oriented Motor Response: Obey commands - Urinary Catheter Management Indwelling Urethral Catheter Cath placed during this visit: yes, but has since been removed by the nurse Urethral indwelling: No Reason for continuing: Decision to DC catheter Insertion date: 04/24/18 Insertion time: 13:00 Removal date: 04/27/18 Removal time: 21:00 Assessment and Plan - Plan Assessment: 1. Post Cadaveric Renal Transplant. 2. End Stage renal disease. 3. Hypertension. 4. Hyperkalemia. 5. Anemia. Plan: Patient has DGF and still the urine out put is low. K was elevated and now normal. On CellCept and also given ATG. Prograf level was 2.6, and now on Tacrolimus 4 mg BID. BP is now better controlled now off Nicardipine, Continue hydralazine 100 mg PO TID. Continue IV Labetalol and Hydralazine PRN. Hgb. is stable, WBC and platelets decreased, will follow. Plan for discharge in next 2-3 days. BUN and Creatinine remain elevated, to start HD today, remove minimal fluid. Urine out put is low, on diuretics.
[2018-04-28] MEDS: Dextrose 5%/NaCl 0.45% Inj 1,000 ML IV.CONT SCH (17:24)
[2018-04-28] MEDS ORDERED: MethylPREDNISolone Sod Succinate Inj 40 MG/ML Vial IV.PUSH ONE (18:00)
[2018-04-29 00:50] LABS: Hepatitis A IgM Antibody Nonreactive (Nonreactive)
[2018-04-29 00:51] LABS: Hepatitits B Surface Antigen Nonreactive (Nonreactive)
[2018-04-29] MEDS: niCARdipine Inj 25 MG in Sodium Chlor 0.9% Inj 240 ML IV.CONT PRN (00:57)
[2018-04-29] MEDS: Insulin NovoLOG Aspart Correctional Sugar Inj SQ SCH ×6 (01:12→20:23)
[2018-04-29 06:26] LABS: Baso % (Auto) 0.2 % (0.0-2.0); Eos % (Auto) 0.1 % (0.0-4.0); Lymph % (Auto) 1.3 % (9.0-44.0); Mean Corpuscular HGB Conc 34.7 % (32.0-36.0); Mean Corpuscular Hemoglobin 33.4 pg (27.0-34.0); Mean Corpuscular Volume 96.3 fL (80.0-100.0); Mean Platelet Volume 9.1 fL (7.0-11.0); Mono # (Auto) 0.2 th/mm3 (0.0-0.9); Mono % (Auto) 7.1 % (0.0-8.0); Neut # (Auto) 2.6 th/mm3 (1.8-7.7); Neut % (Auto) 91.3 % (16.0-70.0); Platelet Count 82 th/mm3 (150-450); Red Blood Count 1.92 mil/mm3 (4.50-5.90); Red Cell Distribution Width 14.4 % (11.6-17.2); White Blood Count 2.8 th/mm3 (4.0-11.0)
[2018-04-29 06:44] LABS: Hematocrit 18.5 % (39.0-51.0); Hemoglobin 6.4 gm/dL (13.0-17.0)
[2018-04-29 06:49] LABS: Calcium 7.7 mg/dL (8.5-10.1); Carbon Dioxide 23.5 meq/L (21.0-32.0); Potassium 3.8 meq/L (3.5-5.1)
[2018-04-29] MEDS: Docusate Sodium 100 MG Capsule PO SCH ×2 (08:13→20:22)
[2018-04-29] MEDS: Carvedilol 12.5 MG Tablet PO SCH ×2 (08:35→20:22)
[2018-04-29] MEDS: amLODIPine 10 MG Tablet PO SCH (08:35)
[2018-04-29] MEDS: Vitamin B Complex/Vit C/Folic Tablet PO SCH (08:36)
[2018-04-29] MEDS: Nystatin Liq 500,000 UNIT/5 ML UDC SWISH-SWAL SCH ×4 (08:36→20:22)
[2018-04-29 08:45] LABS: Lymphocytes 2 % (9-44); Metamyelocytes 1 % (0-1); Monocytes 5 % (0-8); Platelet Morphology Normal (Normal); Promyelocyte 1 % (0-0)
--- NOTE | 2018-04-29 08:46 | P.PNTS ---
Subjective Interval history: No new c/o. Denies N/V Physical Exam Vital signs: Vital Signs 04/28/18 11:00 04/28/18 14:00 04/28/18 15:00 Temperature 97.7 F 98.1 F Pulse Rate 88 83 Respiratory Rate 16 18 Blood Pressure 160/95 H 146/73 H Pulse Oximetry 96 97 94 L 04/28/18 16:36 04/28/18 20:00 04/28/18 22:50 Temperature 97.8 F Pulse Rate 80 Respiratory Rate 18 Blood Pressure 134/68 Pulse Oximetry 95 99 99 04/28/18 23:00 04/29/18 00:00 04/29/18 03:00 Temperature 98.6 F Pulse Rate 91 H 85 83 Respiratory Rate 18 Blood Pressure 133/93 H Pulse Oximetry 99 04/29/18 04:00 04/29/18 07:00 04/29/18 08:00 Temperature 97.6 F 97.8 F Pulse Rate 87 80 Respiratory Rate 18 16 Blood Pressure 141/74 H 136/72 Pulse Oximetry 99 97 97 Intake & Output 04/28/18 04/29/18 04/29/18 18:59 06:59 18:59 Intake Total 1979 / 1979 1333 / 1333 Output Total 1065 / 1065 80 / 80 Balance 915 / 915 1253 / 1253 Intake: IV 1500 / 1500 1093 / 1093 D5W/1/2 NS Inj 1,000 ML @ 40 1000 / 1000 456 / 456 mls/hr IV.CONT .Q24H [facility] Rx#: [id number] Cardene Inj 25 MG In NS Inj 240 500 / 500 637 / 637 ML @ 5 MG/HR 50 mls/hr IV.CONT TITRATE PRN Rx#:[id number] Oral 480 / 480 240 / 240 Output: Hemodialysis Amount 1000 / 1000 Urine Amount (Catheter) 40 / 40 80 / 80 Condom 40 / 40 80 / 80 Wound Drainage / # 1 Right Abdomen Nick Other: Date of Last Bowel Movement 04/27/18 04/27/18 04/28/18 # Bowel Movements 0 - Constitutional no acute distress - Routine HEENT Exam Head: Present: normocephalic, atraumatic Eye: Present: EOMI - Routine Neck Exam Present: supple - Routine Respiratory Exam Present: CTA bilaterally - Routine Cardiovascular Exam Present: RRR, S1, S2 - Routine Abdominal Exam Present: soft, normoactive bowel sounds Comments: Abd soft, min distended. Approp tender. Wound CDI without EFT. - Routine Exam Comments: Has condom cath in place - Routine Extremities Exam Present: pulses intact Comments: Calves soft, NT bilaterally. Palpable distal pulses bilaterally. - Routine Psychiatric Exam Present: normal affect Comments: PAtient awake alert, oriented, ? some mild confusion (difficult to ascertain) - will monitor for now - Urinary Catheter Management Condom Cath placed during this visit: no Reason for continuing: Not indwelling catheter Indwelling Urethral Catheter Cath placed during this visit: yes, but has since been removed by the nurse Urethral indwelling: No Reason for continuing: Decision to DC catheter Insertion date: 04/24/18 Insertion time: 13:00 Removal date: 04/27/18 Removal time: 21:00 Results - Labs CBC & Chem 7: 04/29/18 05:30 04/29/18 05:30 Laboratory Results - last 24 hr 04/24/18 04/28/18 04/28/18 00:30 05:00 08:00 WBC RBC Hgb 7.8 L Hct 23.0 L MCV MCH MCHC RDW Plt Count MPV Prelim Diff (Auto) Neut % (Auto) Lymph % (Auto) Mathews % (Auto) Eos % (Auto) Baso % (Auto) Neut # (Auto) Lymph # (Auto) Mathews # (Auto) Eos # (Auto) Baso # (Auto) Differential Comment Sodium Potassium Chloride Carbon Dioxide Anion Gap BUN Creatinine Estimated GFR POC Glucose Random Glucose Calcium Phosphorus Magnesium Tacrolimus 2.6 L Hepatitis A IgM Ab Hep Bs Antigen Hep B Core IgM Ab Hep C IgG Ab HCV RNA (PCR) IUs/ml Less than 15 HCV RNA PCR log IUs/ml Less than 1.18 04/28/18 04/28/18 04/28/18 12:28 16:54 19:40 WBC RBC Hgb Hct MCV MCH MCHC RDW Plt Count MPV Prelim Diff (Auto) Neut % (Auto) Lymph % (Auto) Mathews % (Auto) Eos % (Auto) Baso % (Auto) Neut # (Auto) Lymph # (Auto) Mathews # (Auto) Eos # (Auto) Baso # (Auto) Differential Comment Sodium Potassium Chloride Carbon Dioxide Anion Gap BUN Creatinine Estimated GFR POC Glucose 154 H 122 H 140 H Random Glucose Calcium Phosphorus Magnesium Tacrolimus Hepatitis A IgM Ab Hep Bs Antigen Hep B Core IgM Ab Hep C IgG Ab HCV RNA (PCR) IUs/ml HCV RNA PCR log IUs/ml 04/28/18 04/29/18 04/29/18 21:55 01:08 05:30 WBC RBC Hgb Hct MCV MCH MCHC RDW Plt Count MPV Prelim Diff (Auto) Neut % (Auto) Lymph % (Auto) Mathews % (Auto) Eos % (Auto) Baso % (Auto) Neut # (Auto) Lymph # (Auto) Mathews # (Auto) Eos # (Auto) Baso # (Auto) Differential Comment Sodium 137 Potassium 3.8 D Chloride 101 Carbon Dioxide 23.5 Anion Gap 13 BUN 67 H Creatinine 10.18 H* D Estimated GFR 6 L POC Glucose 146 H Random Glucose 108 H Calcium 7.7 L Phosphorus 5.0 H D Magnesium 2.0 Tacrolimus Hepatitis A IgM Ab Nonreactive Hep Bs Antigen Nonreactive Hep B Core IgM Ab Nonreactive Hep C IgG Ab Reactive H HCV RNA (PCR) IUs/ml HCV RNA PCR log IUs/ml 04/29/18 04/29/18 04/29/18 05:30 05:35 07:38 WBC 2.8 L RBC 1.92 L Hgb 6.4 L* Hct 18.5 L* MCV 96.3 MCH 33.4 MCHC 34.7 RDW 14.4 Plt Count 82 L MPV 9.1 Prelim Diff (Auto) Slide review pending Neut % (Auto) 91.3 H Lymph % (Auto) 1.3 L Mathews % (Auto) 7.1 Eos % (Auto) 0.1 Baso % (Auto) 0.2 Neut # (Auto) 2.6 Lymph # (Auto) 0.0 L Mathews # (Auto) 0.2 Eos # (Auto) 0.0 Baso # (Auto) 0.0 Differential Comment . Sodium Potassium Chloride Carbon Dioxide Anion Gap BUN Creatinine Estimated GFR POC Glucose 124 H 110 Random Glucose Calcium Phosphorus Magnesium Tacrolimus Hepatitis A IgM Ab Hep Bs Antigen Hep B Core IgM Ab Hep C IgG Ab HCV RNA (PCR) IUs/ml HCV RNA PCR log IUs/ml - Imaging Impressions Renal Scan w/Medication NM 04/28/18 00:00 CONCLUSION: 1. There does appear to be flow to the right transplanted kidney.. 2. However, there does not appear to be any significant uptake of sulfur colloid into the renal parenchyma. There is no evidence of excretion. These findings can be seen with acute rejection versus nonfunction. - Procedures 1. donor renal transplant , with renal allograft to [facility]'s right iliac fossa.. please use 22 modifier due to case being much harder than average due to severe atherosclerosis of the iliac artery 2. Complex backbench preparation of right donor kidney 3. Placement of ureteral stent Assessment and Plan - Assessment (1) Diabetes mellitus type 2, diet-controlled Code(s): E11.9 - Type 2 diabetes mellitus without complications Status: Chronic (2) History of hypertension Code(s): Z86.79 - Personal history of other diseases of the circulatory system Status: Chronic (3) End stage renal disease Code(s): N18.6 - End stage renal disease Status: Chronic - Plan Post op Day: 5 Patient: Mr Carvajal is status post DDKT for ESRD secondary to DM/HTN. US x 2 postop, shows patent vessels and reasonable RIs. Renal scan 04/28/18, with good flow, but no colloid uptake in transplant kidney Prophylaxis: Decubitus ulcer: patient awake, alert, and mobile CMV prophylaxis with valcyte PCP prophylaxis: bactrim Consults: Transplant Nephrology [employer] Assessment and Plan: S/P DDKT to right iliac fossa. Allograft function: Continued elevated creatinine. K normalized today s/p HD yesterday. [place] held. No significant response to lasix/bumex thus far. Continue 80 mg lasix twice daily. On prograf 4 mg bid. Patient has had significnat issues with hypertension refractory to oral regimen; necessitatiing multiple resumptions of cardene drip. His hypertension seems better this AM, with current adjusted BP regimen, only on 2.5 mg/hr of cardene drip at this time. . Will see if tolerates cardene wean. On regular consistency diabetic-renal diet. On colace. Continue insulin sliding scale. Will continue daily standing weight. B SCDs. Will plan to give 1 mg/kg thymo tomorrow-Tuesday, which will complete thymo postop dosing. On Flomax. Hgb 6.4 this AM. Recheck pending Immunosuppression: Thymo induction; Maint: steroids + Cellcept 1000 mg BID + Tacrolimus 4 mg BID
[2018-04-29] MEDS ORDERED: Iron Sucrose Inj 100 MG in Sodium Chlor 0.9% Inj 100 ML IV.SIG ONE (08:53)
[2018-04-29] MEDS ORDERED: Epoetin Alfa Inj 4,000 UNIT/ML Vial SQ ONE (08:54)
--- NOTE | 2018-04-29 09:52 | P.PNCC ---
Subjective Subjective Remarks/Hospital Course: Hospital Course: 67 year-old male with a history of ESRD, hypertension, and diet-controlled type 2 diabetes mellitus who presented to the hospital under the hospitalist service for renal transplant. He has been on HD for 5 years and makes only drops of urine now. He denies any recent fever, chills, chest pain, shortness of breath , nausea, vomiting, diarrhea, or pain. He underwent renal transplantation today and post procedure he was found to have elevated blood pressure on and off difficult to control. 04/26: off cardene. BP improved into 140s/150s. goal sbp 130 - 160. denies complaints ROS negative. 04/27: Reconsulted for uncontrolled hypertension back on a Cardene drip 04/28: remains on nicardipine infusion. hydralazine increased to 75, then 100mg q8h yesterday without significant improvement. Cr also continues to rise: plan for HD today per transplant team. 04/29: On nicardipine gtt. 2.5 mg/h. Resting comfortably in bed. Dialyzed yesterday. Objective Vital Signs / I&O: Vital Signs 04/28/18 11:00 04/28/18 14:00 04/28/18 15:00 Temperature 97.7 F 98.1 F Pulse Rate 88 83 Respiratory Rate 16 18 Blood Pressure 160/95 H 146/73 H Pulse Oximetry 96 97 94 L 04/28/18 16:36 04/28/18 20:00 04/28/18 22:50 Temperature 97.8 F Pulse Rate 80 Respiratory Rate 18 Blood Pressure 134/68 Pulse Oximetry 95 99 99 04/28/18 23:00 04/29/18 00:00 04/29/18 03:00 Temperature 98.6 F Pulse Rate 91 H 85 83 Respiratory Rate 18 Blood Pressure 133/93 H Pulse Oximetry 99 04/29/18 04:00 04/29/18 07:00 04/29/18 08:00 Temperature 97.6 F 97.8 F Pulse Rate 87 80 Respiratory Rate 18 16 Blood Pressure 141/74 H 136/72 Pulse Oximetry 99 97 97 Intake & Output 04/28/18 04/29/18 04/29/18 18:59 06:59 18:59 Intake Total 1979 / 1979 1333 / 1333 Output Total 1065 / 1065 80 / 80 Balance 915 / 915 1253 / 1253 Intake: IV 1500 / 1500 1093 / 1093 D5W/1/2 NS Inj 1,000 ML @ 40 1000 / 1000 456 / 456 mls/hr IV.CONT .Q24H [facility] Rx#: [id number] Cardene Inj 25 MG In NS Inj 240 500 / 500 637 / 637 ML @ 5 MG/HR 50 mls/hr IV.CONT TITRATE PRN Rx#:[id number] Oral 480 / 480 240 / 240 Output: Hemodialysis Amount 1000 / 1000 Urine Amount (Catheter) 40 / 40 80 / 80 Condom 40 / 40 80 / 80 Wound Drainage # 1 Right Abdomen Nick Other: Date of Last Bowel Movement 04/27/18 04/27/18 04/28/18 # Bowel Movements 0 Result Diagrams: 04/29/18 05:30 04/29/18 05:30 Objective Remarks: GENERAL: Middle-age male, lying in bed, no acute distress HEENT: Normocephalic. Atraumatic. Pupils equal, round, reactive, conjugate. Mucous membranes are moist NECK: Trachea is midline. There is no JVD. CHEST: Equal chest rise. Unlabored. Nasal cannula. CARDIOVASCULAR: Normal rate, regular rhythm. Sinus. ABDOMEN: Soft, nontender, nondistended. No guarding. Inguinal incision is clean dry and intact. MUSCULOSKELETAL: Pulses 2+. No peripheral edema. NEUROLOGICAL: RASS 0. CAM -. Follows commands. No focal deficits. Assessment and Plan - Assessment and Plan Plan: Assessment: 67yM with ESRD s/p DDKT, course complicated by severe hypertension and likely now delayed graft function. s/p DDKTx - anti-rejection meds per Dr. Melton. - likely plan for Thymo tomorrow. 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 Hypertension -Hydralazine 100mg po q8hr - carvedilol 25mg po BID - amlodipine 10mg daily - add clonidine 0.2mg po q8h- can increase to 0.3mg tonight or in the AM if not at goal. -Labetalol as needed - continue nicardpine infusion. wean as tolerated. Type 2 diabetes mellitus -Diet-controlled -Insulin sliding scale Anemia - combination secondary to blood loss and dilutional. recheck hgb 7.8. doubt this is acute bleeding and much more likely to be dilutional effect from volume overload. would recommend holding off on blood transfusion for now. Acute intravascular volume overload - likely will need HD today. weights have been stable, but anemia appears dilutional. Hyperkalemia - s/p HD 04/28. DVT GI prophylaxis -Teds SCDs -Pharmacological DVT prophylaxis per transplant surgeon -1999 ADA Dispo: Once off Nicardipine gtt, may transfer out of ICU.
[2018-04-29 11:02] LABS: Hematocrit 18.4 % (39.0-51.0); Hemoglobin 6.3 gm/dL (13.0-17.0)
--- NOTE | 2018-04-29 16:42 | P.PNNP ---
Subjective Interval history: no acute complaints Physical Exam Vital signs: Vital Signs 04/28/18 20:00 04/28/18 22:50 04/28/18 23:00 Temperature 97.8 F 98.6 F Pulse Rate 80 91 H Respiratory Rate 18 18 Blood Pressure 134/68 133/93 H Pulse Oximetry 99 99 99 04/29/18 00:00 04/29/18 03:00 04/29/18 04:00 Temperature 97.6 F Pulse Rate 85 83 87 Respiratory Rate 18 Blood Pressure 141/74 H Pulse Oximetry 99 04/29/18 07:00 04/29/18 08:00 04/29/18 11:00 Temperature 97.8 F 97.9 F Pulse Rate 80 73 Respiratory Rate 16 16 Blood Pressure 136/72 136/70 Pulse Oximetry 97 97 97 04/29/18 11:44 04/29/18 14:50 04/29/18 15:00 Temperature 97.9 F 97.8 F 98.1 F Pulse Rate 97 H 71 85 Respiratory Rate 16 16 16 Blood Pressure 143/79 H 142/77 H 140/75 Pulse Oximetry 98 97 97 Intake & Output 04/28/18 04/29/18 04/29/18 18:59 06:59 18:59 Intake Total 1979 / 1979 1333 / 1333 505 / 505 Output Total 1065 / 1065 80 / 80 Balance 915 / 915 1253 / 1253 505 / 505 Weight 79.3 kg Intake: IV 1500 / 1500 1093 / 1093 105 / 105 D5W/1/2 NS Inj 1,000 ML @ 40 1000 / 1000 456 / 456 mls/hr IV.CONT .Q24H MO Rx#: [id number] Cardene Inj 25 MG In NS Inj 240 500 / 500 637 / 637 0 / 0 ML @ 5 MG/HR 50 mls/hr IV.CONT TITRATE PRN Rx#:[id number] Venofer Inj 100 MG In NS Inj 105 / 105 100 ML @ 105 mls/hr IV.SIG ONCE ONE Rx#:[id number] Oral 480 / 480 240 / 240 Intake (Blood Product) Amt 400 / 400 Rbc As-3 Leukoreduced Unit 400 / 400 [id number] Rbc As-3 Leukoreduced Unit 0 / 0 [id number] Output: Hemodialysis Amount 1000 / 1000 Urine Amount (Catheter) 40 / 40 80 / 80 Condom 40 / 40 80 / 80 Wound Drainage # 1 Right Abdomen Nick Other: Date of Last Bowel Movement 04/27/18 04/27/18 04/28/18 # Bowel Movements 0 - Constitutional no acute distress - Routine HEENT Exam Head: Present: normocephalic - Routine Neck Exam Present: supple - Routine Respiratory Exam Present: CTA bilaterally - Routine Cardiovascular Exam Present: RRR - Routine Abdominal Exam Present: soft - Routine Neurological Exam Present: alert, oriented X3 - Detailed Neurological Exam: Coma Scale Eye Opening: Spontaneous - Routine Psychiatric Exam Present: normal affect - Urinary Catheter Management Condom Cath placed during this visit: no Reason for continuing: Not indwelling catheter Indwelling Urethral Catheter Cath placed during this visit: yes, but has since been removed by the nurse Urethral indwelling: No Reason for continuing: Decision to DC catheter Insertion date: 04/24/18 Insertion time: 13:00 Removal date: 04/27/18 Removal time: 21:00 Assessment and Plan - Plan Assessment: 1. Post Cadaveric Renal Transplant. 2. End Stage renal disease. 3. Hypertension. 4. Hyperkalemia. 5. Anemia. Plan: Patient has DGF and still the urine output remains low. K was elevated and now normal. On CellCept and also given ATG. Prograf level was 2.6, and now on Tacrolimus 4 mg BID. BP is now better controlled now, off Nicardipine, Hgb. is stable, WBC and platelets decreased - however stable, will follow. BUN and Creatinine remain elevated - HD done Tuesday Plan further HD as needed - continue to monitor UOP and electrolytes closely Immunosuppression: Thymo induction; Maint: steroids + Cellcept 1000 mg BID + Tacrolimus 4 mg BID
[2018-04-29] MEDS: Dextrose 5%/NaCl 0.45% Inj 1,000 ML IV.CONT SCH (18:02)
[2018-04-29 20:54] LABS: Baso % (Auto) 0.1 % (0.0-2.0); Eos # (Auto) 0.1 th/mm3 (0.0-0.4); Eos % (Auto) 1.7 % (0.0-4.0); Hematocrit 25.5 % (39.0-51.0); Hemoglobin 8.7 gm/dL (13.0-17.0); Lymph # (Auto) 0.1 th/mm3 (1.0-4.8); Lymph % (Auto) 3.7 % (9.0-44.0); Mean Corpuscular HGB Conc 34.2 % (32.0-36.0); Mean Corpuscular Hemoglobin 31.9 pg (27.0-34.0); Mean Corpuscular Volume 93.2 fL (80.0-100.0); Mean Platelet Volume 8.9 fL (7.0-11.0); Mono # (Auto) 0.2 th/mm3 (0.0-0.9); Mono % (Auto) 8.3 % (0.0-8.0); Neut # (Auto) 2.6 th/mm3 (1.8-7.7); Neut % (Auto) 86.2 % (16.0-70.0); Platelet Count 84 th/mm3 (150-450); Red Blood Count 2.73 mil/mm3 (4.50-5.90); Red Cell Distribution Width 16.5 % (11.6-17.2)
[2018-04-29 21:13] LABS: Albumin 2.8 g/dL (3.4-5.0); Anion Gap 14 meq/L (5-15); Aspartate Aminotransferase 17 U/L (15-37); Blood Urea Nitrogen 74 mg/dL (7-18); Calcium 7.6 mg/dL (8.5-10.1); Carbon Dioxide 23.4 meq/L (21.0-32.0); Chloride 101 meq/L (98-107); Glomerular Filtration Rate 6 mL/min (>89); Glucose,Random 84 mg/dL (74-106); Magnesium 1.9 mg/dL (1.5-2.5); Potassium 3.5 meq/L (3.5-5.1); Sodium 138 meq/L (136-145)
[2018-04-29 21:16] LABS: Alkaline Phosphatase 58 U/L (45-117); Phosphorus 4.8 mg/dL (2.5-4.9); Total Protein 5.7 g/dL (6.4-8.2)
[2018-04-29 22:03] LABS: Platelet Morphology Normal (Normal)
[2018-04-30] MEDS: Insulin NovoLOG Aspart Correctional Sugar Inj SQ SCH ×6 (01:12→21:21)
[2018-04-30 06:10] LABS: Baso % (Auto) 0.1 % (0.0-2.0); Eos # (Auto) 0.1 th/mm3 (0.0-0.4); Eos % (Auto) 2.9 % (0.0-4.0); Hematocrit 22.5 % (39.0-51.0); Hemoglobin 7.8 gm/dL (13.0-17.0); Lymph # (Auto) 0.1 th/mm3 (1.0-4.8); Lymph % (Auto) 4.9 % (9.0-44.0); Mean Corpuscular HGB Conc 34.5 % (32.0-36.0); Mean Corpuscular Hemoglobin 31.9 pg (27.0-34.0); Mean Corpuscular Volume 92.4 fL (80.0-100.0); Mono # (Auto) 0.2 th/mm3 (0.0-0.9); Mono % (Auto) 8.3 % (0.0-8.0); Neut % (Auto) 83.8 % (16.0-70.0); Platelet Count 78 th/mm3 (150-450); Red Blood Count 2.44 mil/mm3 (4.50-5.90); Red Cell Distribution Width 16.3 % (11.6-17.2); White Blood Count 2.3 th/mm3 (4.0-11.0)
[2018-04-30 06:48] LABS: Calcium 6.9 mg/dL (8.5-10.1); Carbon Dioxide 23.2 meq/L (21.0-32.0); Magnesium 1.9 mg/dL (1.5-2.5); Potassium 3.6 meq/L (3.5-5.1)
[2018-04-30 07:54] LABS: Total Protein 5.3 g/dL (6.4-8.2)
[2018-04-30] MEDS: Vitamin B Complex/Vit C/Folic Tablet PO SCH (08:41)
[2018-04-30] MEDS: Docusate Sodium 100 MG Capsule PO SCH ×2 (08:41→20:51)
[2018-04-30] MEDS: amLODIPine 10 MG Tablet PO SCH (08:41)
[2018-04-30] MEDS: Carvedilol 12.5 MG Tablet PO SCH ×2 (08:41→20:52)
--- NOTE | 2018-04-30 09:40 | P.PNTS ---
Subjective Interval history: Denies any new c/o. Pain about 6/10 at max Physical Exam Vital signs: Vital Signs 04/29/18 11:00 04/29/18 11:44 04/29/18 14:50 Temperature 97.9 F 97.9 F 97.8 F Pulse Rate 73 97 H 71 Respiratory Rate 16 16 16 Blood Pressure 136/70 143/79 H 142/77 H Pulse Oximetry 97 98 97 04/29/18 15:00 04/29/18 18:56 04/29/18 20:00 Temperature 98.1 F 97.9 F 98.5 F Pulse Rate 85 77 76 Respiratory Rate 16 16 16 Blood Pressure 140/75 129/70 154/78 H Pulse Oximetry 97 98 97 04/29/18 23:00 04/30/18 03:11 Temperature 98.6 F 98.5 F Pulse Rate 76 76 Respiratory Rate 16 16 Blood Pressure 129/64 151/79 H Pulse Oximetry 97 97 Intake & Output 04/29/18 04/30/18 04/30/18 18:59 06:59 18:59 Intake Total 2089 / 2089 320 / 320 Output Total 260 / 260 100 / 100 Balance 1829 / 1829 220 / 220 Weight 79.3 kg 81.2 kg Intake: IV 649 / 649 80 / 80 D5W/1/2 NS Inj 1,000 ML @ 40 544 / 544 80 / 80 mls/hr IV.CONT .Q24H MO Rx#: [id number] Cardene Inj 25 MG In NS Inj 240 0 / 0 ML @ 5 MG/HR 50 mls/hr IV.CONT TITRATE PRN Rx#:[id number] Venofer Inj 100 MG In NS Inj 105 / 105 100 ML @ 105 mls/hr IV.SIG ONCE ONE Rx#:[id number] Oral 240 / 240 240 / 240 Intake (Blood Product) Amt 400 / 400 Rbc As-3 Leukoreduced Unit 400 / 400 [id number] Rbc As-3 Leukoreduced Unit 0 / 0 [id number] Mass Transfusion Protocol 800 / 800 Output: Urine Amount (Catheter) 250 / 250 100 / 100 Condom 250 / 250 100 / 100 Wound Drainage # 1 Right Abdomen Nick Other: Date of Last Bowel Movement 04/28/18 04/28/18 - Constitutional no acute distress - Routine HEENT Exam Head: Present: normocephalic, atraumatic Eye: Present: EOMI - Routine Neck Exam Present: supple - Routine Respiratory Exam Present: CTA bilaterally - Routine Cardiovascular Exam Present: RRR, S1, S2 - Routine Abdominal Exam Present: soft, normoactive bowel sounds Comments: abd soft min distended. approp tender. wound cdi without eft - Routine Extremities Exam Comments: ? some right knee swelling. although patient denies any pain at that site. Will monitor for now. No distal peripheral edema. Intact DP/PT bilaterally to palpation. - Routine Psychiatric Exam Present: normal affect - Urinary Catheter Management Condom Cath placed during this visit: no Urethral indwelling: No Reason for continuing: Hourly intake/output Indwelling Urethral Catheter Cath placed during this visit: yes, but has since been removed by the nurse Urethral indwelling: No Reason for continuing: Decision to DC catheter Insertion date: 04/24/18 Insertion time: 13:00 Removal date: 04/27/18 Removal time: 21:00 Results - Labs CBC & Chem 7: 04/30/18 05:20 04/30/18 05:20 Laboratory Results - last 24 hr 04/29/18 04/29/18 04/29/18 05:30 10:39 10:39 WBC RBC Hgb 6.3 L* Hct 18.4 L* MCV MCH MCHC RDW Plt Count MPV Prelim Diff (Auto) Neut % (Auto) Lymph % (Auto) Cannon % (Auto) Eos % (Auto) Baso % (Auto) Neut # (Auto) Lymph # (Auto) Cannon # (Auto) Eos # (Auto) Baso # (Auto) WBC Differential Diff Scan Differential Comment Platelet Estimate Platelet Morphology Sodium Potassium Chloride Carbon Dioxide Anion Gap BUN Creatinine Estimated GFR POC Glucose Random Glucose Calcium Prot Corrected Calcium Phosphorus Magnesium Total Bilirubin AST ALT Alkaline Phosphatase Total Protein Albumin Tacrolimus 3.5 L Blood Type B Positive Antibody Screen Negative MTS Gel Crossmatch 04/29/18 04/29/18 04/29/18 11:12 11:52 16:28 WBC RBC Hgb Hct MCV MCH MCHC RDW Plt Count MPV Prelim Diff (Auto) Neut % (Auto) Lymph % (Auto) Cannon % (Auto) Eos % (Auto) Baso % (Auto) Neut # (Auto) Lymph # (Auto) Cannon # (Auto) Eos # (Auto) Baso # (Auto) WBC Differential Diff Scan Differential Comment Platelet Estimate Platelet Morphology Sodium Potassium Chloride Carbon Dioxide Anion Gap BUN Creatinine Estimated GFR POC Glucose 144 H 169 H Random Glucose Calcium Prot Corrected Calcium Phosphorus Magnesium Total Bilirubin AST ALT Alkaline Phosphatase Total Protein Albumin Tacrolimus Blood Type Antibody Screen MTS Gel Crossmatch See Detail 04/29/18 04/29/18 04/29/18 20:00 20:00 20:19 WBC 3.0 L RBC 2.73 L Hgb 8.7 L D Hct 25.5 L MCV 93.2 MCH 31.9 MCHC 34.2 RDW 16.5 Plt Count 84 L MPV 8.9 Prelim Diff (Auto) Slide review pending Neut % (Auto) 86.2 H Lymph % (Auto) 3.7 L Cannon % (Auto) 8.3 H Eos % (Auto) 1.7 Baso % (Auto) 0.1 Neut # (Auto) 2.6 Lymph # (Auto) 0.1 L Cannon # (Auto) 0.2 Eos # (Auto) 0.1 Baso # (Auto) 0.0 WBC Differential . Diff Scan Auto diff confirmed Differential Comment . Platelet Estimate Low L Platelet Morphology Normal Sodium 138 Potassium 3.5 Chloride 101 Carbon Dioxide 23.4 Anion Gap 14 BUN 74 H Creatinine 10.91 H* Estimated GFR 6 L POC Glucose 98 Random Glucose 84 Calcium 7.6 L Prot Corrected Calcium Phosphorus 4.8 Magnesium 1.9 Total Bilirubin 0.6 AST 17 ALT Less than 6 L Alkaline Phosphatase 58 Total Protein 5.7 L D Albumin 2.8 L Tacrolimus Blood Type Antibody Screen MTS Gel Crossmatch 04/30/18 04/30/18 04/30/18 00:24 04:19 05:20 WBC RBC Hgb Hct MCV MCH MCHC RDW Plt Count MPV Prelim Diff (Auto) Neut % (Auto) Lymph % (Auto) Cannon % (Auto) Eos % (Auto) Baso % (Auto) Neut # (Auto) Lymph # (Auto) Cannon # (Auto) Eos # (Auto) Baso # (Auto) WBC Differential Diff Scan Differential Comment Platelet Estimate Platelet Morphology Sodium 139 Potassium 3.6 Chloride 102 Carbon Dioxide 23.2 Anion Gap 14 BUN 74 H Creatinine 11.11 H* Estimated GFR 6 L POC Glucose 153 H 86 Random Glucose 72 L Calcium 6.9 L* Prot Corrected Calcium 7.8 L Phosphorus 5.0 H Magnesium 1.9 Total Bilirubin AST ALT Alkaline Phosphatase Total Protein 5.3 L Albumin Tacrolimus Blood Type Antibody Screen MTS Gel Crossmatch 04/30/18 04/30/18 05:20 07:29 WBC 2.3 L RBC 2.44 L Hgb 7.8 L Hct 22.5 L MCV 92.4 MCH 31.9 MCHC 34.5 RDW 16.3 Plt Count 78 L MPV 9.0 Prelim Diff (Auto) Slide review pending Neut % (Auto) 83.8 H Lymph % (Auto) 4.9 L Cannon % (Auto) 8.3 H Eos % (Auto) 2.9 Baso % (Auto) 0.1 Neut # (Auto) 2.0 Lymph # (Auto) 0.1 L Cannon # (Auto) 0.2 Eos # (Auto) 0.1 Baso # (Auto) 0.0 WBC Differential Diff Scan Differential Comment . Platelet Estimate Platelet Morphology Sodium Potassium Chloride Carbon Dioxide Anion Gap BUN Creatinine Estimated GFR POC Glucose 104 Random Glucose Calcium Prot Corrected Calcium Phosphorus Magnesium Total Bilirubin AST ALT Alkaline Phosphatase Total Protein Albumin Tacrolimus Blood Type Antibody Screen MTS Gel Crossmatch - Procedures 1. donor renal transplant , with renal allograft to [facility]'s right iliac fossa.. please use 22 modifier due to case being much harder than average due to severe atherosclerosis of the iliac artery 2. Complex backbench preparation of right donor kidney 3. Placement of ureteral stent Assessment and Plan - Assessment (1) Diabetes mellitus type 2, diet-controlled Code(s): E11.9 - Type 2 diabetes mellitus without complications Status: Chronic (2) History of hypertension Code(s): Z86.79 - Personal history of other diseases of the circulatory system Status: Chronic (3) End stage renal disease Code(s): N18.6 - End stage renal disease Status: Chronic - Plan Post op Day: 6 Patient: Mr Carvajal is status post DDKT for ESRD secondary to DM/HTN. US x 2 postop, shows patent vessels and reasonable RIs. Renal scan 04/28/18, with good flow, but no colloid uptake in transplant kidney Prophylaxis: Decubitus ulcer: patient awake, alert, and mobile CMV prophylaxis with valcyte PCP prophylaxis: bactrim Consults: Transplant Nephrology Rn Neurosurgical Assessment and Plan: S/P DDKT to right iliac fossa. Allograft function: Continued elevated creatinine. K remains normal s/p HD 2 days ago. Veltassa held. Lasix held since yesterday, interestingly the UOP has increased after lasix held. On prograf 4 mg bid. Patient has had significant issues with hypertension refractory to oral regimen; necessitating multiple resumptions of cardene drip. His hypertension has been better for the last 2 days, with current adjusted BP regimen, off cardene since yesterday. On regular consistency diabetic-renal diet. On colace. Continue insulin sliding scale. Will continue daily standing weight. B SCDs. Will plan to give 1 mg/kg thymo today, which will complete thymo postop dosing. On Flomax. Hgb 7.8 this AM , after reportedly going to 8.7 yesterday. Recheck pending. Will recheck later today also. Although his k is 3.6, and mentation seems okay, his weight is up to 81.2 kg, will resume lasix at 80 mg bid, although suspect may need HD in next 1-2 days. Immunosuppression: Thymo induction; Maint: steroids + Cellcept 1000 mg BID + Tacrolimus 4 mg BID
--- NOTE | 2018-04-30 09:58 | P.PNTS ---
Subjective Interval history: No new c/o. Pain well controlled. Physical Exam Vital signs: Vital Signs 04/29/18 11:00 04/29/18 11:44 04/29/18 14:50 Temperature 97.9 F 97.9 F 97.8 F Pulse Rate 73 97 H 71 Respiratory Rate 16 16 16 Blood Pressure 136/70 143/79 H 142/77 H Pulse Oximetry 97 98 97 04/29/18 15:00 04/29/18 18:56 04/29/18 20:00 Temperature 98.1 F 97.9 F 98.5 F Pulse Rate 85 77 76 Respiratory Rate 16 16 16 Blood Pressure 140/75 129/70 154/78 H Pulse Oximetry 97 98 97 04/29/18 23:00 04/30/18 03:11 Temperature 98.6 F 98.5 F Pulse Rate 76 76 Respiratory Rate 16 16 Blood Pressure 129/64 151/79 H Pulse Oximetry 97 97 Intake & Output 04/29/18 04/30/18 04/30/18 18:59 06:59 18:59 Intake Total 2089 / 2089 320 / 320 Output Total 260 / 260 100 / 100 Balance 1829 / 1829 220 / 220 Weight 79.3 kg 81.2 kg Intake: IV 649 / 649 80 / 80 D5W/1/2 NS Inj 1,000 ML @ 40 544 / 544 80 / 80 mls/hr IV.CONT .Q24H MO Rx#: [id number] Cardene Inj 25 MG In NS Inj 240 0 / 0 ML @ 5 MG/HR 50 mls/hr IV.CONT TITRATE PRN Rx#:[id number] Venofer Inj 100 MG In NS Inj 105 / 105 100 ML @ 105 mls/hr IV.SIG ONCE ONE Rx#:[id number] Oral 240 / 240 240 / 240 Intake (Blood Product) Amt 400 / 400 Rbc As-3 Leukoreduced Unit 400 / 400 [id number] Rbc As-3 Leukoreduced Unit 0 / 0 [id number] Mass Transfusion Protocol 800 / 800 Output: Urine Amount (Catheter) 250 / 250 100 / 100 Condom 250 / 250 100 / 100 Wound Drainage # 1 Right Abdomen Nick Other: Date of Last Bowel Movement 04/28/18 04/28/18 - Constitutional no acute distress - Routine HEENT Exam Head: Present: normocephalic Eye: Present: EOMI - Routine Neck Exam Present: supple - Routine Respiratory Exam Present: CTA bilaterally - Routine Cardiovascular Exam Present: RRR, S1, S2 - Routine Abdominal Exam Present: soft, normoactive bowel sounds Comments: abd soft, nondistended. approp tender. Dressing dry/ intact. - Routine Extremities Exam Present: pulses intact Comments: calves soft NT B. No peripheral edema. Palpable distal pulses. - Routine Psychiatric Exam Present: normal affect, normal thought process - Urinary Catheter Management Condom Cath placed during this visit: yes Urethral indwelling: No Reason for continuing: Hourly intake/output Indwelling Urethral Catheter Cath placed during this visit: yes, but has since been removed by the nurse Urethral indwelling: No Reason for continuing: Decision to DC catheter Insertion date: 04/24/18 Insertion time: 13:00 Removal date: 04/27/18 Removal time: 21:00 Results - Labs CBC & Chem 7: 04/30/18 05:20 04/30/18 05:20 Laboratory Results - last 24 hr 04/29/18 04/29/18 04/29/18 05:30 10:39 10:39 WBC RBC Hgb 6.3 L* Hct 18.4 L* MCV MCH MCHC RDW Plt Count MPV Prelim Diff (Auto) Neut % (Auto) Lymph % (Auto) Fisher % (Auto) Eos % (Auto) Baso % (Auto) Neut # (Auto) Lymph # (Auto) Fisher # (Auto) Eos # (Auto) Baso # (Auto) WBC Differential Diff Scan Differential Comment Platelet Estimate Platelet Morphology Sodium Potassium Chloride Carbon Dioxide Anion Gap BUN Creatinine Estimated GFR POC Glucose Random Glucose Calcium Prot Corrected Calcium Phosphorus Magnesium Total Bilirubin AST ALT Alkaline Phosphatase Total Protein Albumin Tacrolimus 3.5 L Blood Type B Positive Antibody Screen Negative MTS Gel Crossmatch 04/29/18 04/29/18 04/29/18 11:12 11:52 16:28 WBC RBC Hgb Hct MCV MCH MCHC RDW Plt Count MPV Prelim Diff (Auto) Neut % (Auto) Lymph % (Auto) Fisher % (Auto) Eos % (Auto) Baso % (Auto) Neut # (Auto) Lymph # (Auto) Fisher # (Auto) Eos # (Auto) Baso # (Auto) WBC Differential Diff Scan Differential Comment Platelet Estimate Platelet Morphology Sodium Potassium Chloride Carbon Dioxide Anion Gap BUN Creatinine Estimated GFR POC Glucose 144 H 169 H Random Glucose Calcium Prot Corrected Calcium Phosphorus Magnesium Total Bilirubin AST ALT Alkaline Phosphatase Total Protein Albumin Tacrolimus Blood Type Antibody Screen MTS Gel Crossmatch See Detail 04/29/18 04/29/18 04/29/18 20:00 20:00 20:19 WBC 3.0 L RBC 2.73 L Hgb 8.7 L D Hct 25.5 L MCV 93.2 MCH 31.9 MCHC 34.2 RDW 16.5 Plt Count 84 L MPV 8.9 Prelim Diff (Auto) Slide review pending Neut % (Auto) 86.2 H Lymph % (Auto) 3.7 L Fisher % (Auto) 8.3 H Eos % (Auto) 1.7 Baso % (Auto) 0.1 Neut # (Auto) 2.6 Lymph # (Auto) 0.1 L Fisher # (Auto) 0.2 Eos # (Auto) 0.1 Baso # (Auto) 0.0 WBC Differential . Diff Scan Auto diff confirmed Differential Comment . Platelet Estimate Low L Platelet Morphology Normal Sodium 138 Potassium 3.5 Chloride 101 Carbon Dioxide 23.4 Anion Gap 14 BUN 74 H Creatinine 10.91 H* Estimated GFR 6 L POC Glucose 98 Random Glucose 84 Calcium 7.6 L Prot Corrected Calcium Phosphorus 4.8 Magnesium 1.9 Total Bilirubin 0.6 AST 17 ALT Less than 6 L Alkaline Phosphatase 58 Total Protein 5.7 L D Albumin 2.8 L Tacrolimus Blood Type Antibody Screen MTS Gel Crossmatch 04/30/18 04/30/18 04/30/18 00:24 04:19 05:20 WBC RBC Hgb Hct MCV MCH MCHC RDW Plt Count MPV Prelim Diff (Auto) Neut % (Auto) Lymph % (Auto) Fisher % (Auto) Eos % (Auto) Baso % (Auto) Neut # (Auto) Lymph # (Auto) Fisher # (Auto) Eos # (Auto) Baso # (Auto) WBC Differential Diff Scan Differential Comment Platelet Estimate Platelet Morphology Sodium 139 Potassium 3.6 Chloride 102 Carbon Dioxide 23.2 Anion Gap 14 BUN 74 H Creatinine 11.11 H* Estimated GFR 6 L POC Glucose 153 H 86 Random Glucose 72 L Calcium 6.9 L* Prot Corrected Calcium 7.8 L Phosphorus 5.0 H Magnesium 1.9 Total Bilirubin AST ALT Alkaline Phosphatase Total Protein 5.3 L Albumin Tacrolimus Blood Type Antibody Screen MTS Gel Crossmatch 04/30/18 04/30/18 05:20 07:29 WBC 2.3 L RBC 2.44 L Hgb 7.8 L Hct 22.5 L MCV 92.4 MCH 31.9 MCHC 34.5 RDW 16.3 Plt Count 78 L MPV 9.0 Prelim Diff (Auto) Slide review pending Neut % (Auto) 83.8 H Lymph % (Auto) 4.9 L Fisher % (Auto) 8.3 H Eos % (Auto) 2.9 Baso % (Auto) 0.1 Neut # (Auto) 2.0 Lymph # (Auto) 0.1 L Fisher # (Auto) 0.2 Eos # (Auto) 0.1 Baso # (Auto) 0.0 WBC Differential Diff Scan Differential Comment . Platelet Estimate Platelet Morphology Sodium Potassium Chloride Carbon Dioxide Anion Gap BUN Creatinine Estimated GFR POC Glucose 104 Random Glucose Calcium Prot Corrected Calcium Phosphorus Magnesium Total Bilirubin AST ALT Alkaline Phosphatase Total Protein Albumin Tacrolimus Blood Type Antibody Screen MTS Gel Crossmatch - Procedures 1. donor renal transplant , with renal allograft to [facility]'s right iliac fossa.. please use 22 modifier due to case being much harder than average due to severe atherosclerosis of the iliac artery 2. Complex backbench preparation of right donor kidney 3. Placement of ureteral stent Assessment and Plan - Assessment (1) Diabetes mellitus type 2, diet-controlled Code(s): E11.9 - Type 2 diabetes mellitus without complications Status: Chronic (2) History of hypertension Code(s): Z86.79 - Personal history of other diseases of the circulatory system Status: Chronic (3) End stage renal disease Code(s): N18.6 - End stage renal disease Status: Chronic - Plan Post op Day: 7 Patient: Mr Carvajal is status post DDKT for ESRD secondary to DM/HTN. US x 2 postop, shows patent vessels and reasonable RIs. Renal scan 04/28/18, with good flow, but no colloid uptake in transplant kidney Prophylaxis: Decubitus ulcer: patient awake, alert, and mobile CMV prophylaxis with valcyte PCP prophylaxis: bactrim Consults: Transplant Nephrology [employer] Assessment and Plan: S/P DDKT to right iliac fossa. Allograft function: Continued elevated creatinine. K remains normal s/p HD 2 days ago. Veltassa held. Lasix held since yesterday, interestingly the UOP has increased after lasix held. On prograf 4 mg bid. Patient has had significant issues with hypertension refractory to oral regimen; necessitating multiple resumptions of cardene drip. His hypertension has been better for the last 2 days, with current adjusted BP regimen, off cardene since yesterday. On regular consistency diabetic-renal diet. On colace. Continue insulin sliding scale. Will continue daily standing weight. B SCDs. Will plan to give 1 mg/kg thymo today, which will complete thymo postop dosing. On Flomax. Hgb 7.8 this AM , after reportedly going to 8.7 yesterday. Recheck pending. Will recheck later today also. Although his k is 3.6, and mentation seems okay, his weight is up to 81.2 kg, will resume lasix at 80 mg bid, although suspect may need HD in next 1-2 days. Immunosuppression: Thymo induction; Maint: steroids + Cellcept 1000 mg BID + Tacrolimus 4 mg BID
[2018-04-30 10:01] LABS: Baso % (Auto) 0.2 % (0.0-2.0); Eos # (Auto) 0.1 th/mm3 (0.0-0.4); Hematocrit 24.2 % (39.0-51.0); Hemoglobin 8.4 gm/dL (13.0-17.0); Lymph # (Auto) 0.1 th/mm3 (1.0-4.8); Lymph % (Auto) 2.8 % (9.0-44.0); Mean Corpuscular HGB Conc 34.7 % (32.0-36.0); Mean Corpuscular Hemoglobin 32.1 pg (27.0-34.0); Mean Corpuscular Volume 92.6 fL (80.0-100.0); Mean Platelet Volume 9.3 fL (7.0-11.0); Mono # (Auto) 0.2 th/mm3 (0.0-0.9); Mono % (Auto) 7.6 % (0.0-8.0); Neut # (Auto) 2.4 th/mm3 (1.8-7.7); Neut % (Auto) 87.4 % (16.0-70.0); Platelet Count 80 th/mm3 (150-450); Red Blood Count 2.62 mil/mm3 (4.50-5.90); Red Cell Distribution Width 16.2 % (11.6-17.2); White Blood Count 2.7 th/mm3 (4.0-11.0)
[2018-04-30 10:03] LABS: Lymphocytes 4 % (9-44); Monocytes 2 % (0-8); Platelet Morphology Normal (Normal)
[2018-04-30 10:04] LABS: Ovalocytes 1+
[2018-04-30 10:06] LABS: Reticulocyte Percent 1.2 % (0.4-3.0)
--- NOTE | 2018-04-30 10:09 | P.PNCC ---
Subjective Subjective Remarks/Hospital Course: Hospital Course: 67 year-old male with a history of ESRD, hypertension, and diet-controlled type 2 diabetes mellitus who presented to the hospital under the hospitalist service for renal transplant. He has been on HD for 5 years and makes only drops of urine now. He denies any recent fever, chills, chest pain, shortness of breath , nausea, vomiting, diarrhea, or pain. He underwent renal transplantation today and post procedure he was found to have elevated blood pressure on and off difficult to control. 04/26: off cardene. BP improved into 140s/150s. goal sbp 130 - 160. denies complaints ROS negative. 04/27: Reconsulted for uncontrolled hypertension back on a Cardene drip 04/28: remains on nicardipine infusion. hydralazine increased to 75, then 100mg q8h yesterday without significant improvement. Cr also continues to rise: plan for HD today per transplant team. 04/29: On nicardipine gtt. 2.5 mg/h. Resting comfortably in bed. Dialyzed yesterday. 04/30: Off nicardipine gtt. Drop in hemoglobin noted. Awaiting recheck. Patient resting comfortably not in any acute distress. Objective Vital Signs / I&O: Vital Signs 04/29/18 11:00 04/29/18 11:44 04/29/18 14:50 Temperature 97.9 F 97.9 F 97.8 F Pulse Rate 73 97 H 71 Respiratory Rate 16 16 16 Blood Pressure 136/70 143/79 H 142/77 H Pulse Oximetry 97 98 97 04/29/18 15:00 04/29/18 18:56 04/29/18 20:00 Temperature 98.1 F 97.9 F 98.5 F Pulse Rate 85 77 76 Respiratory Rate 16 16 16 Blood Pressure 140/75 129/70 154/78 H Pulse Oximetry 97 98 97 04/29/18 23:00 04/30/18 03:11 04/30/18 07:00 Temperature 98.6 F 98.5 F 97.8 F Pulse Rate 76 76 72 Respiratory Rate 16 16 18 Blood Pressure 129/64 151/79 H 147/80 H Pulse Oximetry 97 97 97 Intake & Output 04/29/18 04/30/18 04/30/18 18:59 06:59 18:59 Intake Total 2089 / 2089 320 / 320 Output Total 260 / 260 100 / 100 Balance 1829 / 1829 220 / 220 Weight 79.3 kg 81.2 kg Intake: IV 649 / 649 80 / 80 D5W/1/2 NS Inj 1,000 ML @ 40 544 / 544 80 / 80 mls/hr IV.CONT .Q24H MO Rx#: [id number] Cardene Inj 25 MG In NS Inj 240 0 / 0 ML @ 5 MG/HR 50 mls/hr IV.CONT TITRATE PRN Rx#:[id number] Venofer Inj 100 MG In NS Inj 105 / 105 100 ML @ 105 mls/hr IV.SIG ONCE ONE Rx#:[id number] Oral 240 / 240 240 / 240 Intake (Blood Product) Amt 400 / 400 Rbc As-3 Leukoreduced Unit 400 / 400 [id number] Rbc As-3 Leukoreduced Unit 0 / 0 [id number] Mass Transfusion Protocol 800 / 800 Output: Urine Amount (Catheter) 250 / 250 100 / 100 Condom 250 / 250 100 / 100 Wound Drainage # 1 Right Abdomen Nick Other: Date of Last Bowel Movement 04/28/18 04/28/18 Result Diagrams: 04/30/18 05:20 04/30/18 05:20 Objective Remarks: GENERAL: Middle-age male, lying in bed, no acute distress HEENT: Normocephalic. Atraumatic. Pupils equal, round, reactive, conjugate. Mucous membranes are moist NECK: Trachea is midline. There is no JVD. CHEST: Equal chest rise. Unlabored. Nasal cannula. CARDIOVASCULAR: Normal rate, regular rhythm. Sinus. ABDOMEN: Soft, nontender, nondistended. No guarding. Inguinal incision is clean dry and intact. MUSCULOSKELETAL: Pulses 2+. No peripheral edema. NEUROLOGICAL: RASS 0. CAM -. Follows commands. No focal deficits. Assessment and Plan - Assessment and Plan Plan: Assessment: 67yM with ESRD s/p DDKT, course complicated by severe hypertension and likely now delayed graft function. s/p DDKTx - anti-rejection meds per Dr. Melton. - likely plan for Thymo tomorrow. 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 Hypertension -Hydralazine 100mg po q8hr - carvedilol 25mg po BID - amlodipine 10mg daily - add clonidine 0.2mg po q8h- can increase to 0.3mg tonight or in the AM if not at goal. -Labetalol as needed - continue nicardpine infusion. wean as tolerated. Type 2 diabetes mellitus -Diet-controlled -Insulin sliding scale Anemia -Drop in hemoglobin noted. Recheck hemoglobin pending. If low transplant surgery plans to obtain CT abdomen for further evaluation Hyperkalemia - s/p HD 04/28. DVT GI prophylaxis -Teds SCDs -Pharmacological DVT prophylaxis per transplant surgeon -1999 ADA Dispo: Once off Nicardipine gtt, may transfer out of ICU.
[2018-04-30 10:17] LABS: % Iron Saturation 69.9 % (20-50)
[2018-04-30 10:22] LABS: Carbon Dioxide 22.9 meq/L (21.0-32.0); Potassium 3.5 meq/L (3.5-5.1)
[2018-04-30] MEDS: Nystatin Liq 500,000 UNIT/5 ML UDC SWISH-SWAL SCH ×4 (10:22→20:52)
[2018-04-30] MEDS ORDERED: Epoetin Alfa Inj 4,000 UNIT/ML Vial SQ ONE (10:24)
[2018-04-30 10:48] LABS: Platelet Morphology Normal (Normal)
[2018-04-30 10:55] LABS: Total Protein 5.6 g/dL (6.4-8.2)
[2018-04-30] MEDS ORDERED: MethylPREDNISolone Sod Succinate Inj 40 MG/ML Vial IV.PUSH ONE (11:30)
[2018-04-30] MEDS ORDERED: Acetaminophen 325 MG Tablet PO ONE (11:30)
[2018-04-30] MEDS ORDERED: SODIUM CHLOR 0.9% IV.SIG ONE (12:00)
[2018-04-30] MEDS ORDERED: ANTITHYMOCYTE IG IV.SIG ONE (12:00)
--- NOTE | 2018-04-30 12:36 | P.PNNP ---
Subjective Interval history: no acute complaints Physical Exam Vital signs: Vital Signs 04/29/18 14:50 04/29/18 15:00 04/29/18 18:56 Temperature 97.8 F 98.1 F 97.9 F Pulse Rate 71 85 77 Respiratory Rate 16 16 16 Blood Pressure 142/77 H 140/75 129/70 Pulse Oximetry 97 97 98 04/29/18 20:00 04/29/18 23:00 04/30/18 03:11 Temperature 98.5 F 98.6 F 98.5 F Pulse Rate 76 76 76 Respiratory Rate 16 16 16 Blood Pressure 154/78 H 129/64 151/79 H Pulse Oximetry 97 97 97 04/30/18 07:00 04/30/18 08:00 04/30/18 11:00 Temperature 97.8 F 97.5 F L Pulse Rate 72 69 Respiratory Rate 18 16 Blood Pressure 147/80 H 149/83 H Pulse Oximetry 97 98 98 Intake & Output 04/29/18 04/30/18 04/30/18 18:59 06:59 18:59 Intake Total 2089 / 2089 320 / 320 Output Total 260 / 260 100 / 100 Balance 1829 / 1829 220 / 220 Weight 79.3 kg 81.2 kg Intake: IV 649 / 649 80 / 80 D5W/1/2 NS Inj 1,000 ML @ 40 544 / 544 80 / 80 mls/hr IV.CONT .Q24H MO Rx#: [id number] Cardene Inj 25 MG In NS Inj 240 0 / 0 ML @ 5 MG/HR 50 mls/hr IV.CONT TITRATE PRN Rx#:[id number] Venofer Inj 100 MG In NS Inj 105 / 105 100 ML @ 105 mls/hr IV.SIG ONCE ONE Rx#:[id number] Oral 240 / 240 240 / 240 Intake (Blood Product) Amt 400 / 400 Rbc As-3 Leukoreduced Unit 400 / 400 [id number] Rbc As-3 Leukoreduced Unit 0 / 0 [id number] Mass Transfusion Protocol 800 / 800 Output: Urine Amount (Catheter) 250 / 250 100 / 100 Condom 250 / 250 100 / 100 Wound Drainage # 1 Right Abdomen Nick Other: Date of Last Bowel Movement 04/28/18 04/28/18 04/28/18 - Constitutional no acute distress - Routine HEENT Exam Head: Present: normocephalic Eye: Present: EOMI ENT: Present: mucous membranes moist - Routine Neck Exam Present: supple - Routine Respiratory Exam Present: CTA bilaterally, diminished air movement - Routine Cardiovascular Exam Present: RRR - Routine Abdominal Exam Present: soft - Routine Skin Exam Present: intact - Routine Neurological Exam Present: alert, oriented X3 - Detailed Neurological Exam: Coma Scale Eye Opening: Spontaneous - Routine Psychiatric Exam Present: normal affect - Urinary Catheter Management Condom Cath placed during this visit: no Urethral indwelling: No Reason for continuing: Hourly intake/output Indwelling Urethral Catheter Cath placed during this visit: yes, but has since been removed by the nurse Urethral indwelling: No Reason for continuing: Decision to DC catheter Insertion date: 04/24/18 Insertion time: 13:00 Removal date: 04/27/18 Removal time: 21:00 Assessment and Plan - Plan Assessment: 1. Post Cadaveric Renal Transplant. 2. End Stage renal disease. 3. Hypertension. 4. Hyperkalemia. 5. Anemia. Plan: Patient has DGF and still the urine output remains low However UOP of 350cc today is encouraging. K was elevated and now normal . On CellCept and also given ATG. Prograf level 5.3 and now on Tacrolimus 4 mg BID. BP is now better controlled now, off Nicardipine, Hgb. is stable at 8.4, WBC and platelets decreased - however stable, will follow. BUN and Creatinine remain elevated - HD done Tuesday Plan further HD as needed - continue to monitor UOP and electrolytes closely Increased weight - now on lasix 80 IV BID Will decide on further HD tomorrow based on volume status and electrolytes (Dr. Abreu back Tuesday) Immunosuppression: Thymo induction; Maint: steroids + Cellcept 1000 mg BID + Tacrolimus 4 mg BID
[2018-04-30 16:15] LABS: Hematocrit 27.8 % (39.0-51.0); Hemoglobin 9.8 gm/dL (13.0-17.0); Mean Corpuscular HGB Conc 35.2 % (32.0-36.0); Mean Corpuscular Hemoglobin 32.5 pg (27.0-34.0); Mean Corpuscular Volume 92.1 fL (80.0-100.0); Mean Platelet Volume 9.1 fL (7.0-11.0); Platelet Count 89 th/mm3 (150-450); Red Blood Count 3.01 mil/mm3 (4.50-5.90); Red Cell Distribution Width 16.3 % (11.6-17.2); White Blood Count 2.7 th/mm3 (4.0-11.0)
[2018-04-30 16:44] LABS: Calcium 7.4 mg/dL (8.5-10.1); Carbon Dioxide 20.6 meq/L (21.0-32.0); Magnesium 1.9 mg/dL (1.5-2.5); Potassium 3.7 meq/L (3.5-5.1)
[2018-04-30 16:55] LABS: Phosphorus 4.9 mg/dL (2.5-4.9); Total Protein 6.4 g/dL (6.4-8.2)
[2018-04-30] MEDS: hydrALAZINE HCl Inj 20 MG/ML Vial IV.PUSH PRN (17:28)
[2018-04-30] MEDS: Dextrose 5%/NaCl 0.45% Inj 1,000 ML IV.CONT SCH (18:18)
[2018-05-01] MEDS: Insulin NovoLOG Aspart Correctional Sugar Inj SQ SCH ×6 (00:22→21:26)
[2018-05-01 04:35] LABS: Hematocrit 24.4 % (39.0-51.0); Hemoglobin 8.5 gm/dL (13.0-17.0); Mean Corpuscular HGB Conc 34.8 % (32.0-36.0); Mean Corpuscular Hemoglobin 32.5 pg (27.0-34.0); Mean Corpuscular Volume 93.4 fL (80.0-100.0); Platelet Count 73 th/mm3 (150-450); Red Blood Count 2.61 mil/mm3 (4.50-5.90); Red Cell Distribution Width 15.7 % (11.6-17.2); White Blood Count 1.5 th/mm3 (4.0-11.0)
[2018-05-01 05:02] LABS: Calcium 7.2 mg/dL (8.5-10.1); Carbon Dioxide 20.6 meq/L (21.0-32.0); Magnesium 1.9 mg/dL (1.5-2.5); Phosphorus 5.5 mg/dL (2.5-4.9); Potassium 3.6 meq/L (3.5-5.1)
[2018-05-01 05:23] LABS: Blast Cells 4 % (0-0); Lymphocytes 6 % (9-44); Monocytes 2 % (0-8)
[2018-05-01 05:26] LABS: Platelet Morphology Normal (Normal)
[2018-05-01 05:50] LABS: Total Protein 5.4 g/dL (6.4-8.2)
[2018-05-01] MEDS: Docusate Sodium 100 MG Capsule PO SCH ×2 (09:16→21:25)
[2018-05-01] MEDS: Carvedilol 12.5 MG Tablet PO SCH ×2 (09:16→21:25)
[2018-05-01] MEDS: Nystatin Liq 500,000 UNIT/5 ML UDC SWISH-SWAL SCH ×4 (09:17→21:25)
[2018-05-01] MEDS: amLODIPine 10 MG Tablet PO SCH (09:17)
[2018-05-01] MEDS: Vitamin B Complex/Vit C/Folic Tablet PO SCH (09:17)
--- NOTE | 2018-05-01 14:36 | P.PNTS ---
Subjective Interval history: No new c/o. Pain well controlled. Rohan po well. Physical Exam Vital signs: Vital Signs 04/30/18 15:00 04/30/18 17:06 04/30/18 19:00 Temperature 97.6 F 97.7 F Pulse Rate 79 75 Respiratory Rate 16 16 Blood Pressure 158/84 H 143/80 H Pulse Oximetry 96 97 95 04/30/18 20:59 04/30/18 23:31 05/01/18 03:00 Temperature 98.0 F 98.0 F Pulse Rate 75 74 Respiratory Rate 15 15 Blood Pressure 150/82 H 153/83 H Pulse Oximetry 98 97 97 05/01/18 07:00 05/01/18 09:35 05/01/18 11:00 Temperature 97.7 F Pulse Rate 73 Respiratory Rate 16 16 Blood Pressure 146/77 H Pulse Oximetry 97 98 Intake & Output 04/30/18 05/01/18 05/01/18 18:59 06:59 18:59 Intake Total 1000 / 1000 240 / 240 480 / 480 Output Total 159 / 159 255 / 255 Balance 841 / 841 -15 / -15 480 / 480 Weight 81.2 kg 82.5 kg Intake: IV 1000 / 1000 480 / 480 D5W/1/2 NS Inj 1,000 ML @ 40 1000 / 1000 480 / 480 mls/hr IV.CONT .Q24H MO Rx#: [id number] Oral 240 / 240 Output: Urine Amount (Catheter) 150 / 150 250 / 250 Condom 150 / 150 250 / 250 Wound Drainage # 1 Right Abdomen Nick Other: Date of Last Bowel Movement 04/28/18 04/28/18 - Constitutional no acute distress - Routine HEENT Exam Head: Present: normocephalic, atraumatic Eye: Present: EOMI - Routine Neck Exam Present: supple - Routine Respiratory Exam Present: CTA bilaterally - Routine Cardiovascular Exam Present: RRR, S1, S2 - Routine Abdominal Exam Present: soft, normoactive bowel sounds Comments: Abd soft, approp tender, min distended. Wound CDI without EFT. HARISH scant serosanguineous output - Routine Exam Comments: condom cath in place - Routine Extremities Exam Present: pulses intact Comments: calves soft NT BT. Palpable distal pulses. No peripheral edema noted. - Routine Neurological Exam Present: alert - Routine Psychiatric Exam Present: normal affect - Urinary Catheter Management Condom Cath placed during this visit: no Urethral indwelling: No Reason for continuing: Hourly intake/output Indwelling Urethral Catheter Cath placed during this visit: yes, but has since been removed by the nurse Urethral indwelling: No Reason for continuing: Decision to DC catheter Insertion date: 04/24/18 Insertion time: 13:00 Removal date: 04/27/18 Removal time: 21:00 Results - Labs CBC & Chem 7: 05/01/18 03:40 05/01/18 03:40 Laboratory Results - last 24 hr 04/30/18 04/30/18 04/30/18 15:08 15:50 15:50 WBC 2.7 L RBC 3.01 L Hgb 9.8 L Hct 27.8 L MCV 92.1 MCH 32.5 MCHC 35.2 RDW 16.3 Plt Count 89 L MPV 9.1 Prelim Diff (Auto) WBC Differential Seg Neuts % (Manual) Lymphocytes % (Manual) Monocytes % (Manual) Blast Cells % (Manual) Abs Neuts (Manual) Differential Comment Platelet Estimate Platelet Morphology Sodium 137 Potassium 3.7 Chloride 101 Carbon Dioxide 20.6 L Anion Gap 15 BUN 82 H Creatinine 11.35 H* Estimated GFR 5 L POC Glucose 153 H Random Glucose 148 H Calcium 7.4 L* Prot Corrected Calcium 7.8 L Phosphorus 4.9 Magnesium 1.9 Total Bilirubin 0.5 AST 14 L ALT 7 L Alkaline Phosphatase 63 Total Protein 6.4 D Albumin 3.0 L Tacrolimus 04/30/18 04/30/18 05/01/18 20:57 23:56 03:39 WBC RBC Hgb Hct MCV MCH MCHC RDW Plt Count MPV Prelim Diff (Auto) WBC Differential Seg Neuts % (Manual) Lymphocytes % (Manual) Monocytes % (Manual) Blast Cells % (Manual) Abs Neuts (Manual) Differential Comment Platelet Estimate Platelet Morphology Sodium Potassium Chloride Carbon Dioxide Anion Gap BUN Creatinine Estimated GFR POC Glucose 137 H 139 H 77 Random Glucose Calcium Prot Corrected Calcium Phosphorus Magnesium Total Bilirubin AST ALT Alkaline Phosphatase Total Protein Albumin Tacrolimus 05/01/18 05/01/18 05/01/18 03:40 03:40 03:40 WBC 1.5 L RBC 2.61 L Hgb 8.5 L Hct 24.4 L MCV 93.4 MCH 32.5 MCHC 34.8 RDW 15.7 Plt Count 73 L MPV 9.0 Prelim Diff (Auto) Slide review pending WBC Differential Manual diff final Seg Neuts % (Manual) 88 H Lymphocytes % (Manual) 6 L Monocytes % (Manual) 2 Blast Cells % (Manual) 4 H Abs Neuts (Manual) 1.3 L Differential Comment . Platelet Estimate Low L Platelet Morphology Normal Sodium 137 Potassium 3.6 Chloride 101 Carbon Dioxide 20.6 L Anion Gap 15 BUN 90 H Creatinine 11.95 H* Estimated GFR 5 L POC Glucose Random Glucose 65 L Calcium 7.2 L* Prot Corrected Calcium 8.1 L Phosphorus 5.5 H Magnesium 1.9 Total Bilirubin AST ALT Alkaline Phosphatase Total Protein 5.4 L D Albumin Tacrolimus 5.6 05/01/18 05/01/18 09:25 12:09 WBC RBC Hgb Hct MCV MCH MCHC RDW Plt Count MPV Prelim Diff (Auto) WBC Differential Seg Neuts % (Manual) Lymphocytes % (Manual) Monocytes % (Manual) Blast Cells % (Manual) Abs Neuts (Manual) Differential Comment Platelet Estimate Platelet Morphology Sodium Potassium Chloride Carbon Dioxide Anion Gap BUN Creatinine Estimated GFR POC Glucose 121 H 129 H Random Glucose Calcium Prot Corrected Calcium Phosphorus Magnesium Total Bilirubin AST ALT Alkaline Phosphatase Total Protein Albumin Tacrolimus - Procedures 1. donor renal transplant , with renal allograft to [facility]'s right iliac fossa.. please use 22 modifier due to case being much harder than average due to severe atherosclerosis of the iliac artery 2. Complex backbench preparation of right donor kidney 3. Placement of ureteral stent Assessment and Plan - Assessment (1) Diabetes mellitus type 2, diet-controlled Code(s): E11.9 - Type 2 diabetes mellitus without complications Status: Chronic (2) History of hypertension Code(s): Z86.79 - Personal history of other diseases of the circulatory system Status: Chronic (3) End stage renal disease Code(s): N18.6 - End stage renal disease Status: Chronic - Plan Post op Day: 7 Patient: Mr Carvajal is status post DDKT for ESRD secondary to DM/HTN. US x 2 postop, shows patent vessels and reasonable RIs. Renal scan 04/28/18, with good flow, but no colloid uptake in transplant kidney Prophylaxis: Decubitus ulcer: patient awake, alert, and mobile CMV prophylaxis with valcyte PCP prophylaxis: bactrim Consults: Transplant Nephrology Assessment and Plan: S/P DDKT to right iliac fossa. Allograft function: Continued elevated creatinine. K remains normal s/p HD 3 days ago. Lasix 80 mg bid. His UOP seems to be improving--400 ml yesterday. ? improving trnaplant renal function--okay with holding off on HD for now and monitoring. On prograf 4 mg bid. Patient has had significant issues with hypertension refractory to oral regimen; necessitating multiple resumptions of cardene drip. His hypertension has been better for the last 3 days, with current adjusted BP regimen.. On regular consistency diabetic-renal diet. On colace. Continue insulin sliding scale. Will continue daily standing weight. B SCDs. On Flomax. . Immunosuppression: Thymo induction; Maint: steroids + Cellcept 1000 mg BID + Tacrolimus 4 mg BID
--- NOTE | 2018-05-01 14:53 | P.DIET ---
Nutritional Evaluation Type of nutrition evaluation: follow-up Screening comments: F/U Nutrition Assessment, nutrition education and discharge planning Subjective Subjective Comments: Pt verbalizes no complaints at this time. states she would like a renal diet for her to use with pt initially until kidney function improves. Objective - Diagnosis Kidney Transplant - Objective % IBW: 83 Body Weight Used for Calculations: Actual Energy Needs - Lower Range (kCal/kg): 30 Energy Needs - Upper Range (kCal/kg): 35 Lower Limit kCal/kg (kCals): 2,010 Upper Limit kCal/kg (kCals): 2,345 Lower Limit Protein Factor (Grams per Kg): 1.2 Upper Limit Protein Factor (Grams per Kg): 1.5 Lower Protein Needs (Protein): 74 Upper Protein Needs (Protein): 101 Dietitian Reviewed in Medical Record: Current diet, Curent medications, Intake & Output, Labs, Medical history Diet Order: 1800 ADA, 50 gm Pro, 2 gm Na, 40 meq K Objective Comments: Pt's nutritional needs based on 67kg PMH: Hypertension, diabetes mellitus, end-stage renal disease, was on hemodialysis, history of hepatitis C, history of bladder cancer. Labs include: Cr 11.95, K+ 3.6, Phos 5.5, Ca 7.2 UOP: 400mls Assessment Assessment: POD #6 DDKT Pt remains at nutritional risk r/t current clinical status. Pt with delayed kidney function, but urine output is increasing and potassium is holding within normal limits. Educated in-depth, pt and on post-transplant nutrition when kidney is functioning normally. Discussed the importance of drinking 2-3L liquid/day, incorporating high phosphorus foods into diet, food safety guidelines, eating a heart healthy diet. Because of DKF, will educate pt and on current renal diet for use after discharge. Will f/u with pt in outpatient clinic for further education and answer any questions. Recommendations: POD #6, Pt s/p DDKT on 04/24 Pt with delayed kidney function In-depth post-transplant education provided Will educate on current renal diet for use until kidney in functioning normally Follow up with pt in outpatient clinic for further education and questions. Dietitian to Monitor: Lab values, Renal labs, Intake & Output, Diet tolerance, Weight change, PO Intake, Diet advancement, Medical course
--- NOTE | 2018-05-01 16:10 | P.PNNP ---
Subjective Interval history: Patient is alert, now sitting, o SOB, not in distress. Physical Exam Vital signs: Vital Signs 04/30/18 17:06 04/30/18 19:00 04/30/18 20:59 Temperature 97.7 F Pulse Rate 75 Respiratory Rate 16 Blood Pressure 143/80 H Pulse Oximetry 97 95 98 04/30/18 23:31 05/01/18 03:00 05/01/18 07:00 Temperature 98.0 F 98.0 F 97.7 F Pulse Rate 75 74 73 Respiratory Rate 15 15 16 Blood Pressure 150/82 H 153/83 H 146/77 H Pulse Oximetry 97 97 97 05/01/18 09:35 05/01/18 11:00 Temperature Pulse Rate Respiratory Rate 16 Blood Pressure Pulse Oximetry 98 Intake & Output 04/30/18 05/01/18 05/01/18 18:59 06:59 18:59 Intake Total 1000 / 1000 240 / 240 480 / 480 Output Total 159 / 159 255 / 255 Balance 841 / 841 -15 / -15 480 / 480 Weight 81.2 kg 82.5 kg Intake: IV 1000 / 1000 480 / 480 D5W/1/2 NS Inj 1,000 ML @ 40 1000 / 1000 480 / 480 mls/hr IV.CONT .Q24H MO Rx#: [id number] Oral 240 / 240 Output: Urine Amount (Catheter) 150 / 150 250 / 250 Condom 150 / 150 250 / 250 Wound Drainage # 1 Right Abdomen Nick Other: Date of Last Bowel Movement 04/28/18 04/28/18 - Constitutional no acute distress - Routine HEENT Exam Head: Present: normocephalic - Routine Neck Exam Present: supple - Routine Respiratory Exam Present: patient mechanically ventilated, decreased breath sounds, rhonchi - Routine Cardiovascular Exam Present: RRR, S1, S2 - Routine Abdominal Exam Present: soft, normoactive bowel sounds, distended - Routine Extremities Exam Present: edema - Urinary Catheter Management Condom Cath placed during this visit: no Urethral indwelling: No Reason for continuing: Hourly intake/output Indwelling Urethral Catheter Cath placed during this visit: yes, but has since been removed by the nurse Urethral indwelling: No Reason for continuing: Decision to DC catheter Insertion date: 04/24/18 Insertion time: 13:00 Removal date: 04/27/18 Removal time: 21:00 Assessment and Plan - Plan Assessment: 1. Post Cadaveric Renal Transplant. 2. End Stage renal disease. 3. Hypertension. 4. Hyperkalemia. 5. Anemia. Plan: Patient has DGF and still the urine output remains low However UOP of 350cc today is encouraging. K was elevated and now normal . On CellCept and also given ATG. Prograf level 5.6 and now on Tacrolimus 4 mg BID. BP is now better controlled now, off Nicardipine, Hgb. is stable at 8.4, WBC and platelets decreased - however stable, will follow. BUN and Creatinine remain elevated - Last HD done Tuesday Plan further HD as needed - continue to monitor UOP and electrolytes closely Increased weight - now on Lasix 80 IV BID. May will need HD tomorrow.
[2018-05-01] MEDS: predniSONE 20 MG Tablet PO SCH (18:09)
[2018-05-02] MEDS: Insulin NovoLOG Aspart Correctional Sugar Inj SQ SCH ×7 (04:00→23:43)
[2018-05-02] MEDS: Carvedilol 12.5 MG Tablet PO SCH ×2 (08:06→21:47)
[2018-05-02] MEDS: predniSONE 20 MG Tablet PO SCH (08:39)
[2018-05-02] MEDS: Docusate Sodium 100 MG Capsule PO SCH ×2 (08:39→21:47)
[2018-05-02] MEDS: Nystatin Liq 500,000 UNIT/5 ML UDC SWISH-SWAL SCH ×4 (08:40→21:47)
[2018-05-02] MEDS: amLODIPine 10 MG Tablet PO SCH (08:40)
[2018-05-02] MEDS: Vitamin B Complex/Vit C/Folic Tablet PO SCH (08:40)
[2018-05-02] MEDS: Bisacodyl 10 MG Supp RECTAL PRN (08:42)
[2018-05-02] MEDS ORDERED: Polyethylene Glycol 3350 17 GM Packet PO ONE (09:15)
--- NOTE | 2018-05-02 09:20 | P.PN ---
Physical Exam Vital signs: Vital Signs 05/01/18 09:35 05/01/18 11:00 05/01/18 15:00 Temperature 98.1 F 98.4 F Pulse Rate 69 68 Respiratory Rate 18 18 Blood Pressure 132/93 H 143/77 H Pulse Oximetry 98 92 L 93 L 05/01/18 19:00 05/01/18 19:34 05/01/18 20:00 Temperature 97.9 F Pulse Rate 72 75 Respiratory Rate 16 Blood Pressure 167/99 H 145/71 H Pulse Oximetry 95 05/01/18 22:05 05/01/18 23:19 05/02/18 03:21 Temperature 97.8 F 98.0 F Pulse Rate 69 70 Respiratory Rate 15 15 Blood Pressure 152/82 H 143/80 H Pulse Oximetry 93 L 95 94 L Intake & Output 05/01/18 05/02/18 05/02/18 18:59 06:59 18:59 Intake Total 480 / 480 200 / 200 Output Total 255 / 255 500 / 500 Balance 225 / 225 -300 / -300 Weight 82.5 kg 82.5 kg Intake: IV 480 / 480 D5W/1/2 NS Inj 1,000 ML @ 40 480 / 480 mls/hr IV.CONT .Q24H MO Rx#: [id number] Oral 200 / 200 Output: Urine 255 / 255 Urine Amount (Catheter) 500 / 500 Condom 500 / 500 Other: Date of Last Bowel Movement 04/28/18 Narrative: Subjective: In nad he is in the chair. Says has no pain at this time at the surgical site. No fever or chills. Appetite is improving and is able to eat, no n/v/d/c. Physical exam: GENERAL: Pleasant middle-age male, doesn't appear in acute distress CARDIOVASCULAR: Regular rate and rhythm without murmurs, gallops, or rubs. RESPIRATORY: Breath sounds equal bilaterally. No accessory muscle use. GASTROINTESTINAL: Abdomen soft, non-tender, nondistended. Incision is clean dry and intact. MUSCULOSKELETAL: No cyanosis, or edema. BACK: Nontender without obvious deformity. No CVA tenderness. Assessment and Plan 67yM with ESRD s/p DDKT, course complicated by severe hypertension and likely now delayed graft function. s/p DDKTx - anti-rejection meds per Dr. Melton. - likely plan for Thymo tomorrow. 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 Hypertension -Hydralazine 100mg po q8hr - carvedilol 25mg po BID - amlodipine 10mg daily - add clonidine 0.2mg po q8h- can increase to 0.3mg tonight or in the AM if not at goal. -Labetalol as needed - off nicardpine infusion. wean as tolerated. Type 2 diabetes mellitus -Diet-controlled -Insulin sliding scale Anemia -Drop in hemoglobin noted. Recheck hemoglobin pending. If low transplant surgery plans to obtain CT abdomen for further evaluation Hyperkalemia - s/p HD 04/28. DVT GI prophylaxis - SCDs -Pharmacological DVT prophylaxis per transplant surgeon -1999 ADA Dispo: off nicardipine drip. Consider transferring out of ICU if ok with renal transplant surgeon if BP is controlled and stable - Urinary Catheter Management Condom Cath placed during this visit: no Urethral indwelling: No Reason for continuing: Hourly intake/output Indwelling Urethral Catheter Cath placed during this visit: yes, but has since been removed by the nurse Urethral indwelling: No Reason for continuing: Decision to DC catheter Insertion date: 04/24/18 Insertion time: 13:00 Removal date: 04/27/18 Removal time: 21:00 Results - Labs CBC & Chem 7: 05/02/18 09:09 05/02/18 09:09 Laboratory Results - last 24 hr 05/01/18 05/01/18 05/01/18 03:40 09:25 12:09 POC Glucose 121 H 129 H Tacrolimus 5.6 05/01/18 05/01/18 05/01/18 18:01 20:44 23:24 POC Glucose 153 H 151 H 73 Tacrolimus 05/02/18 05/02/18 04:05 08:31 POC Glucose 120 H 149 H Tacrolimus - Procedures 1. donor renal transplant , with renal allograft to [facility]'s right iliac fossa.. please use 22 modifier due to case being much harder than average due to severe atherosclerosis of the iliac artery 2. Complex backbench preparation of right donor kidney 3. Placement of ureteral stent
[2018-05-02 09:32] LABS: Baso % (Auto) 0.3 % (0.0-2.0); Eos % (Auto) 0.5 % (0.0-4.0); Hematocrit 25.9 % (39.0-51.0); Hemoglobin 9.1 gm/dL (13.0-17.0); Lymph % (Auto) 1.1 % (9.0-44.0); Mean Corpuscular HGB Conc 35.3 % (32.0-36.0); Mean Corpuscular Hemoglobin 32.5 pg (27.0-34.0); Mean Corpuscular Volume 92.2 fL (80.0-100.0); Mean Platelet Volume 9.3 fL (7.0-11.0); Mono # (Auto) 0.2 th/mm3 (0.0-0.9); Mono % (Auto) 5.1 % (0.0-8.0); Neut # (Auto) 3.7 th/mm3 (1.8-7.7); Platelet Count 99 th/mm3 (150-450); Red Blood Count 2.81 mil/mm3 (4.50-5.90); Red Cell Distribution Width 15.9 % (11.6-17.2)
[2018-05-02 09:50] LABS: Total Volume 200 mL; Vanillylmandelic Acid Adult 1.5 mg/24 h (<8.0)
[2018-05-02 09:55] LABS: Calcium 7.7 mg/dL (8.5-10.1); Carbon Dioxide 18.7 meq/L (21.0-32.0); Magnesium 2.1 mg/dL (1.5-2.5); Phosphorus 6.1 mg/dL (2.5-4.9); Potassium 3.5 meq/L (3.5-5.1)
[2018-05-02 10:42] LABS: Lymphocytes 1 % (9-44)
[2018-05-02 10:43] LABS: Acanthocytes Occ; Platelet Morphology Normal (Normal)
--- NOTE | 2018-05-02 11:30 | P.PNTS ---
Subjective Interval history: No new c/o.. Physical Exam Vital signs: Vital Signs 05/01/18 15:00 05/01/18 19:00 05/01/18 19:34 Temperature 98.4 F 97.9 F Pulse Rate 68 72 75 Respiratory Rate 18 16 Blood Pressure 143/77 H 167/99 H Pulse Oximetry 93 L 95 05/01/18 20:00 05/01/18 22:05 05/01/18 23:19 Temperature 97.8 F Pulse Rate 69 Respiratory Rate 15 Blood Pressure 145/71 H 152/82 H Pulse Oximetry 93 L 95 05/02/18 03:21 05/02/18 07:00 05/02/18 07:27 Temperature 98.0 F 97.9 F Pulse Rate 70 77 Respiratory Rate 15 16 Blood Pressure 143/80 H 150/76 H Pulse Oximetry 94 L 94 L 95 05/02/18 08:00 Temperature Pulse Rate Respiratory Rate Blood Pressure Pulse Oximetry 94 L Intake & Output 05/01/18 05/02/18 05/02/18 18:59 06:59 18:59 Intake Total 480 / 480 200 / 200 Output Total 255 / 255 500 / 500 Balance 225 / 225 -300 / -300 Weight 82.5 kg 82.5 kg Intake: IV 480 / 480 D5W/1/2 NS Inj 1,000 ML @ 40 480 / 480 mls/hr IV.CONT .Q24H [facility] Rx#: [id number] Oral 200 / 200 Output: Urine 255 / 255 Urine Amount (Catheter) 500 / 500 Condom 500 / 500 Other: Date of Last Bowel Movement 04/28/18 04/28/18 - Constitutional no acute distress - Routine HEENT Exam Head: Present: normocephalic, atraumatic - Routine Neck Exam Present: supple - Routine Respiratory Exam Present: CTA bilaterally - Routine Cardiovascular Exam Present: RRR, S1, S2 - Routine Abdominal Exam Present: soft, normoactive bowel sounds Comments: Abd soft NT/min distended. Wound CDI without EFT. Some serosanguineous drainage form former HARISH entry site - Routine Extremities Exam Present: pulses intact Comments: Calves soft NT B. Intact distal pulses. No peripheral edema - Routine Neurological Exam Present: alert, oriented X3 - Routine Psychiatric Exam Present: normal affect, normal thought process - Urinary Catheter Management Condom Cath placed during this visit: no Urethral indwelling: No Reason for continuing: Hourly intake/output Indwelling Urethral Catheter Cath placed during this visit: yes, but has since been removed by the nurse Urethral indwelling: No Reason for continuing: Decision to DC catheter Insertion date: 04/24/18 Insertion time: 13:00 Removal date: 04/27/18 Removal time: 21:00 Results - Labs CBC & Chem 7: 05/02/18 09:09 05/02/18 09:09 Laboratory Results - last 24 hr 04/27/18 05/01/18 05/01/18 03:15 03:40 12:09 WBC RBC Hgb Hct MCV MCH MCHC RDW Plt Count MPV Prelim Diff (Auto) Neut % (Auto) Lymph % (Auto) Darke % (Auto) Eos % (Auto) Baso % (Auto) Neut # (Auto) Lymph # (Auto) Darke # (Auto) Eos # (Auto) Baso # (Auto) WBC Differential Seg Neuts % (Manual) Band Neuts % (Manual) Lymphocytes % (Manual) Basophils % (Manual) Abs Neuts (Manual) Differential Comment Platelet Estimate Platelet Morphology Acanthocytes (Spur) Sodium Potassium Chloride Carbon Dioxide Anion Gap BUN Creatinine Estimated GFR POC Glucose 129 H Random Glucose Calcium Phosphorus Magnesium Ur Collection Duration 24 Urine Total Volume 200 Ur VMA mg/day 1.5 Ur VMA mg/gm Creat Not Reportable Tacrolimus 5.6 05/01/18 05/01/18 05/01/18 18:01 20:44 23:24 WBC RBC Hgb Hct MCV MCH MCHC RDW Plt Count MPV Prelim Diff (Auto) Neut % (Auto) Lymph % (Auto) Darke % (Auto) Eos % (Auto) Baso % (Auto) Neut # (Auto) Lymph # (Auto) Darke # (Auto) Eos # (Auto) Baso # (Auto) WBC Differential Seg Neuts % (Manual) Band Neuts % (Manual) Lymphocytes % (Manual) Basophils % (Manual) Abs Neuts (Manual) Differential Comment Platelet Estimate Platelet Morphology Acanthocytes (Spur) Sodium Potassium Chloride Carbon Dioxide Anion Gap BUN Creatinine Estimated GFR POC Glucose 153 H 151 H 73 Random Glucose Calcium Phosphorus Magnesium Ur Collection Duration Urine Total Volume Ur VMA mg/day Ur VMA mg/gm Creat Tacrolimus 05/02/18 05/02/18 05/02/18 04:05 08:31 09:09 WBC 4.0 RBC 2.81 L Hgb 9.1 L Hct 25.9 L MCV 92.2 MCH 32.5 MCHC 35.3 RDW 15.9 Plt Count 99 L D MPV 9.3 Prelim Diff (Auto) Slide review pending Neut % (Auto) 93.0 H Lymph % (Auto) 1.1 L Darke % (Auto) 5.1 Eos % (Auto) 0.5 Baso % (Auto) 0.3 Neut # (Auto) 3.7 Lymph # (Auto) 0.0 L Darke # (Auto) 0.2 Eos # (Auto) 0.0 Baso # (Auto) 0.0 WBC Differential Manual diff final Seg Neuts % (Manual) 90 H Band Neuts % (Manual) 8 H Lymphocytes % (Manual) 1 L Basophils % (Manual) 1 Abs Neuts (Manual) 3.9 Differential Comment . Platelet Estimate Low L Platelet Morphology Normal Acanthocytes (Spur) Occ H Sodium Potassium Chloride Carbon Dioxide Anion Gap BUN Creatinine Estimated GFR POC Glucose 120 H 149 H Random Glucose Calcium Phosphorus Magnesium Ur Collection Duration Urine Total Volume Ur VMA mg/day Ur VMA mg/gm Creat Tacrolimus 05/02/18 05/02/18 09:09 11:15 WBC RBC Hgb Hct MCV MCH MCHC RDW Plt Count MPV Prelim Diff (Auto) Neut % (Auto) Lymph % (Auto) Darke % (Auto) Eos % (Auto) Baso % (Auto) Neut # (Auto) Lymph # (Auto) Darke # (Auto) Eos # (Auto) Baso # (Auto) WBC Differential Seg Neuts % (Manual) Band Neuts % (Manual) Lymphocytes % (Manual) Basophils % (Manual) Abs Neuts (Manual) Differential Comment Platelet Estimate Platelet Morphology Acanthocytes (Spur) Sodium 135 L Potassium 3.5 Chloride 99 Carbon Dioxide 18.7 L Anion Gap 17 H BUN 99 H Creatinine 12.48 H* Estimated GFR 5 L POC Glucose 160 H Random Glucose 150 H Calcium 7.7 L Phosphorus 6.1 H Magnesium 2.1 Ur Collection Duration Urine Total Volume Ur VMA mg/day Ur VMA mg/gm Creat Tacrolimus - Procedures 1. [facility] renal transplant , [facility].. please use 22 modifier due to case being much harder than average due to severe atherosclerosis of the iliac artery 2. Complex backbench preparation of right donor kidney 3. Placement of ureteral stent Assessment and Plan - Assessment (1) Diabetes mellitus type 2, diet-controlled Code(s): E11.9 - Type 2 diabetes mellitus without complications Status: Chronic (2) History of hypertension Code(s): Z86.79 - Personal history of other diseases of the circulatory system Status: Chronic (3) End stage renal disease Code(s): N18.6 - End stage renal disease Status: Chronic - Plan Post op Day: 8 Patient: Mr Carvajal is status post DDKT for ESRD secondary to DM/HTN. US x 2 postop, shows patent vessels and reasonable RIs. Renal scan 04/28/18, with good flow, but no colloid uptake in transplant kidney Prophylaxis: Decubitus ulcer: patient awake, alert, and mobile CMV prophylaxis with valcyte PCP prophylaxis: bactrim Consults: Transplant Nephrology Assessment and Plan: S/P DDKT to right iliac fossa. Allograft function: Continued elevated creatinine. K remains normal s/p HD 4 days ago. Lasix 80 mg bid. His UOP continues to improve. Increasing weight-- okay with HD today. On prograf 4 mg bid. Awaiting results of DSA. Renal transplant biopsy today. Patient has had significant issues with hypertension refractory to oral regimen; necessitating multiple resumptions of cardene drip. His hypertension has been better for the last 4 days, with current adjusted BP regimen.. On regular consistency diabetic-renal diet. On colace. Continue insulin sliding scale. Will continue daily standing weight. B SCDs. On Flomax. Probable discharge in next 1-2 days. . Immunosuppression: Thymo induction; Maint: steroids + Cellcept 1000 mg BID + Tacrolimus 4 mg BID
[2018-05-02 13:38] LABS: Prothrombin Time 10.3 sec (9.8-11.6)
[2018-05-02] MEDS: hydrALAZINE HCl Inj 20 MG/ML Vial IV.PUSH PRN (14:05)
--- NOTE | 2018-05-02 15:24 | P.PNNP ---
Subjective Interval history: patient seen in AM, sitting on chair, no SOB, mild abd. discomfort. Physical Exam Vital signs: Vital Signs 05/01/18 19:00 05/01/18 19:34 05/01/18 20:00 Temperature 97.9 F Pulse Rate 72 75 Respiratory Rate 16 Blood Pressure 167/99 H 145/71 H Pulse Oximetry 95 05/01/18 22:05 05/01/18 23:19 05/02/18 03:21 Temperature 97.8 F 98.0 F Pulse Rate 69 70 Respiratory Rate 15 15 Blood Pressure 152/82 H 143/80 H Pulse Oximetry 93 L 95 94 L 05/02/18 07:00 05/02/18 07:27 05/02/18 08:00 Temperature 97.9 F Pulse Rate 77 Respiratory Rate 16 Blood Pressure 150/76 H Pulse Oximetry 94 L 95 94 L Intake & Output 05/01/18 05/02/18 05/02/18 18:59 06:59 18:59 Intake Total 480 / 480 200 / 200 Output Total 255 / 255 500 / 500 Balance 225 / 225 -300 / -300 Weight 82.5 kg 82.5 kg Intake: IV 480 / 480 D5W/1/2 NS Inj 1,000 ML @ 40 480 / 480 mls/hr IV.CONT .Q24H [facility] Rx#: [id number] Oral 200 / 200 Output: Urine 255 / 255 Urine Amount (Catheter) 500 / 500 Condom 500 / 500 Other: Date of Last Bowel Movement 04/28/18 04/28/18 - Constitutional no acute distress - Routine HEENT Exam Head: Present: normocephalic - Routine Neck Exam Present: supple - Routine Respiratory Exam Present: decreased breath sounds, rhonchi, distant breath sounds - Routine Cardiovascular Exam Present: RRR, S1, S2 - Routine Abdominal Exam Present: soft, normoactive bowel sounds, distended - Routine Extremities Exam Present: edema - Routine Neurological Exam Present: alert, oriented X3 - Detailed Neurological Exam: Coma Scale Verbal Response: Oriented - Urinary Catheter Management Condom Cath placed during this visit: no Urethral indwelling: No Reason for continuing: Hourly intake/output Indwelling Urethral Catheter Cath placed during this visit: yes, but has since been removed by the nurse Urethral indwelling: No Reason for continuing: Decision to DC catheter Insertion date: 04/24/18 Insertion time: 13:00 Removal date: 04/27/18 Removal time: 21:00 Assessment and Plan - Plan Assessment: 1. Post Cadaveric Renal Transplant. 2. End Stage renal disease. 3. Hypertension. 4. Hyperkalemia. 5. Anemia. Plan: Patient has DGF and still the Creatinine is elevated. Urine out put is better. K is now normal On CellCept and also given ATG. Prograf level 5.1 and now on Tacrolimus 4 mg BID. BP is now better controlled now, off Nicardipine, Hgb. is stable at 9.1, WBC and platelets decreased - however stable, will follow. BUN and Creatinine remain elevated. HD will be done today. To get transplant kidney Biopsy, to see if has DGF or rejection. Follow the urine out put and BMP.
[2018-05-03 04:26] LABS: Eos % (Auto) 0.1 % (0.0-4.0); Hematocrit 22.2 % (39.0-51.0); Hemoglobin 7.7 gm/dL (13.0-17.0); Lymph # (Auto) 0.1 th/mm3 (1.0-4.8); Lymph % (Auto) 1.5 % (9.0-44.0); Mean Corpuscular HGB Conc 34.6 % (32.0-36.0); Mean Corpuscular Hemoglobin 32.1 pg (27.0-34.0); Mean Corpuscular Volume 92.9 fL (80.0-100.0); Mean Platelet Volume 9.4 fL (7.0-11.0); Mono # (Auto) 0.2 th/mm3 (0.0-0.9); Mono % (Auto) 6.3 % (0.0-8.0); Neut # (Auto) 3.1 th/mm3 (1.8-7.7); Neut % (Auto) 92.1 % (16.0-70.0); Platelet Count 109 th/mm3 (150-450); Red Blood Count 2.39 mil/mm3 (4.50-5.90); Red Cell Distribution Width 15.3 % (11.6-17.2); White Blood Count 3.3 th/mm3 (4.0-11.0)
[2018-05-03 04:57] LABS: Calcium 7.3 mg/dL (8.5-10.1); Carbon Dioxide 26.6 meq/L (21.0-32.0); Magnesium 1.9 mg/dL (1.5-2.5); Phosphorus 4.8 mg/dL (2.5-4.9); Potassium 3.7 meq/L (3.5-5.1)
[2018-05-03 05:16] LABS: Total Protein 5.5 g/dL (6.4-8.2)
[2018-05-03] MEDS: Insulin NovoLOG Aspart Correctional Sugar Inj SQ SCH ×6 (05:39→22:06)
[2018-05-03 06:45] LABS: Baso % (Auto) 0.1 % (0.0-2.0); Eos % (Auto) 0.3 % (0.0-4.0); Hematocrit 24.1 % (39.0-51.0); Hemoglobin 8.3 gm/dL (13.0-17.0); Lymph # (Auto) 0.1 th/mm3 (1.0-4.8); Lymph % (Auto) 1.4 % (9.0-44.0); Mean Corpuscular HGB Conc 34.6 % (32.0-36.0); Mean Corpuscular Hemoglobin 32.4 pg (27.0-34.0); Mean Corpuscular Volume 93.7 fL (80.0-100.0); Mean Platelet Volume 9.1 fL (7.0-11.0); Mono # (Auto) 0.3 th/mm3 (0.0-0.9); Mono % (Auto) 7.2 % (0.0-8.0); Neut # (Auto) 3.5 th/mm3 (1.8-7.7); Platelet Count 122 th/mm3 (150-450); Red Blood Count 2.58 mil/mm3 (4.50-5.90); Red Cell Distribution Width 15.8 % (11.6-17.2); White Blood Count 3.8 th/mm3 (4.0-11.0)
[2018-05-03] MEDS: predniSONE 20 MG Tablet PO SCH (08:02)
[2018-05-03] MEDS: amLODIPine 10 MG Tablet PO SCH (08:02)
[2018-05-03] MEDS: Carvedilol 12.5 MG Tablet PO SCH ×2 (08:02→22:07)
[2018-05-03] MEDS: Docusate Sodium 100 MG Capsule PO SCH ×2 (08:02→22:06)
[2018-05-03] MEDS: Vitamin B Complex/Vit C/Folic Tablet PO SCH (08:02)
[2018-05-03] MEDS: Nystatin Liq 500,000 UNIT/5 ML UDC SWISH-SWAL SCH ×4 (08:03→22:07)
[2018-05-03] MEDS ORDERED: fentaNYL Citrate Inj 250 MCG/5 ML Ampul ONE (09:02)
--- NOTE | 2018-05-03 09:10 | P.PN ---
Physical Exam Vital signs: Vital Signs 05/02/18 11:00 05/02/18 12:00 05/02/18 13:00 Temperature 97.4 F L Pulse Rate 76 74 84 Respiratory Rate 16 Blood Pressure 175/84 H Pulse Oximetry 97 05/02/18 14:00 05/02/18 15:00 05/02/18 16:00 Temperature 97.4 F L Pulse Rate 76 75 80 Respiratory Rate 16 Blood Pressure 175/84 H Pulse Oximetry 97 05/02/18 17:00 05/02/18 18:00 05/02/18 18:17 Temperature Pulse Rate 78 76 Respiratory Rate Blood Pressure Pulse Oximetry 94 L 05/02/18 19:30 05/02/18 20:00 05/02/18 21:00 Temperature 98.8 F Pulse Rate 77 70 72 Respiratory Rate 17 Blood Pressure 168/79 H Pulse Oximetry 97 97 05/02/18 22:00 05/02/18 23:56 05/03/18 00:05 Temperature 98.2 F Pulse Rate 73 82 73 Respiratory Rate 18 Blood Pressure 173/79 H Pulse Oximetry 97 05/03/18 00:06 05/03/18 01:00 05/03/18 02:10 Temperature Pulse Rate 73 75 77 Respiratory Rate Blood Pressure Pulse Oximetry 05/03/18 03:15 05/03/18 04:00 05/03/18 05:45 Temperature 98.9 F Pulse Rate 72 76 71 Respiratory Rate 18 Blood Pressure 142/71 H Pulse Oximetry 96 05/03/18 06:00 05/03/18 07:00 05/03/18 08:00 Temperature 98.1 F Pulse Rate 72 77 79 Respiratory Rate 20 Blood Pressure 142/70 H Pulse Oximetry 97 05/03/18 08:48 Temperature 98.4 F Pulse Rate 77 Respiratory Rate 18 Blood Pressure 143/74 H Pulse Oximetry 92 L Intake & Output 05/02/18 05/03/18 05/03/18 18:59 06:59 18:59 Intake Total 240 / 240 Output Total 1000 / 1000 500 / 500 Balance -1000 / -1000 -260 / -260 Weight 82.5 kg 79.8 kg Intake: Oral 240 / 240 Output: Urine 500 / 500 Hemodialysis Amount 1000 / 1000 Other: Date of Last Bowel Movement 04/28/18 05/02/18 05/02/18 # Bowel Movements 0 Narrative: Subjective: F/U ESRD S/P DD KT He is ambulating has no pain at this time. Eating better. No fever or chills. Kidney function not improved patient well. No nausea vomiting. Bowel movement. Physical exam: GENERAL: Pleasant middle-age male, doesn't appear in acute distress CARDIOVASCULAR: Regular rate and rhythm without murmurs, gallops, or rubs. RESPIRATORY: Breath sounds equal bilaterally. No accessory muscle use. GASTROINTESTINAL: Abdomen soft, non-tender, nondistended. Incision is clean dry and intact. MUSCULOSKELETAL: No cyanosis, or edema. BACK: Nontender without obvious deformity. No CVA tenderness. Assessment and Plan 67yM with ESRD s/p DDKT, course complicated by severe hypertension and likely now delayed graft function. s/p DDKTx - anti-rejection meds per Dr. Melton. - likely plan for Thymo tomorrow. - strict i/o's ESRD -Status post renal transplantation -Management per transplant surgeon and garage hand - HD per nephrology due to graft not functioning. Hypertension -Hydralazine 100mg po q8hr - carvedilol 25mg po BID - amlodipine 10mg daily - add clonidine 0.2mg po q8h- can increase to 0.3mg tonight or in the AM if not at goal. -Labetalol as needed - off nicardpine infusion. wean as tolerated. Type 2 diabetes mellitus -Diet-controlled -Insulin sliding scale Anemia -Drop in hemoglobin noted. Recheck hemoglobin pending. If low transplant surgery plans to obtain CT abdomen for further evaluation Hyperkalemia - s/p HD 04/28. DVT GI prophylaxis -Teds SCDs -Pharmacological DVT prophylaxis per transplant surgeon -1999 ADA Dispo: off nicardipine drip. Consider transferring out of ICU if ok with renal transplant surgeon if BP is controlled and stable - Urinary Catheter Management Condom Cath placed during this visit: no Urethral indwelling: No Reason for continuing: Hourly intake/output Indwelling Urethral Catheter Cath placed during this visit: yes, but has since been removed by the nurse Urethral indwelling: No Reason for continuing: Decision to DC catheter Insertion date: 04/24/18 Insertion time: 13:00 Removal date: 04/27/18 Removal time: 21:00 Results - Labs CBC & Chem 7: 05/04/18 03:30 05/04/18 03:30 Laboratory Results - last 24 hr 04/27/18 04/28/18 05/02/18 03:15 12:42 06:05 WBC RBC Hgb Hct MCV MCH MCHC RDW Plt Count MPV Prelim Diff (Auto) Neut % (Auto) Lymph % (Auto) Holmes % (Auto) Eos % (Auto) Baso % (Auto) Neut # (Auto) Lymph # (Auto) Holmes # (Auto) Eos # (Auto) Baso # (Auto) WBC Differential Seg Neuts % (Manual) Band Neuts % (Manual) Lymphocytes % (Manual) Basophils % (Manual) Abs Neuts (Manual) Differential Comment Platelet Estimate Platelet Morphology Acanthocytes (Spur) PT INR APTT Sodium Potassium Chloride Carbon Dioxide Anion Gap BUN Creatinine Estimated GFR POC Glucose Random Glucose Calcium Prot Corrected Calcium Phosphorus Magnesium Total Protein Ur Collection Duration 24 Urine Total Volume 200 Ur VMA mg/day 1.5 Ur VMA mg/gm Creat Not Reportable Tacrolimus 5.1 HLA % Reactive Ab Sent to [facility] path lab 05/02/18 05/02/18 05/02/18 09:09 09:09 11:15 WBC 4.0 RBC 2.81 L Hgb 9.1 L Hct 25.9 L MCV 92.2 MCH 32.5 MCHC 35.3 RDW 15.9 Plt Count 99 L D MPV 9.3 Prelim Diff (Auto) Slide review pending Neut % (Auto) 93.0 H Lymph % (Auto) 1.1 L Holmes % (Auto) 5.1 Eos % (Auto) 0.5 Baso % (Auto) 0.3 Neut # (Auto) 3.7 Lymph # (Auto) 0.0 L Holmes # (Auto) 0.2 Eos # (Auto) 0.0 Baso # (Auto) 0.0 WBC Differential Manual diff final Seg Neuts % (Manual) 90 H Band Neuts % (Manual) 8 H Lymphocytes % (Manual) 1 L Basophils % (Manual) 1 Abs Neuts (Manual) 3.9 Differential Comment . Platelet Estimate Low L Platelet Morphology Normal Acanthocytes (Spur) Occ H PT INR APTT Sodium 135 L Potassium 3.5 Chloride 99 Carbon Dioxide 18.7 L Anion Gap 17 H BUN 99 H Creatinine 12.48 H* Estimated GFR 5 L POC Glucose 160 H Random Glucose 150 H Calcium 7.7 L Prot Corrected Calcium Phosphorus 6.1 H Magnesium 2.1 Total Protein Ur Collection Duration Urine Total Volume Ur VMA mg/day Ur VMA mg/gm Creat Tacrolimus HLA % Reactive Ab 05/02/18 05/02/18 05/02/18 13:11 13:11 16:38 WBC RBC Hgb Hct MCV MCH MCHC RDW Plt Count MPV Prelim Diff (Auto) Neut % (Auto) Lymph % (Auto) Holmes % (Auto) Eos % (Auto) Baso % (Auto) Neut # (Auto) Lymph # (Auto) Holmes # (Auto) Eos # (Auto) Baso # (Auto) WBC Differential Seg Neuts % (Manual) Band Neuts % (Manual) Lymphocytes % (Manual) Basophils % (Manual) Abs Neuts (Manual) Differential Comment Platelet Estimate Platelet Morphology Acanthocytes (Spur) PT 10.3 INR 1.0 APTT 26.6 Sodium Potassium Chloride Carbon Dioxide Anion Gap BUN Creatinine Estimated GFR POC Glucose 146 H Random Glucose Calcium Prot Corrected Calcium Phosphorus Magnesium Total Protein Ur Collection Duration Urine Total Volume Ur VMA mg/day Ur VMA mg/gm Creat Tacrolimus HLA % Reactive Ab 05/02/18 05/02/18 05/03/18 20:42 23:20 03:40 WBC 3.3 L RBC 2.39 L Hgb 7.7 L Hct 22.2 L MCV 92.9 MCH 32.1 MCHC 34.6 RDW 15.3 Plt Count 109 L MPV 9.4 Prelim Diff (Auto) Neut % (Auto) 92.1 H Lymph % (Auto) 1.5 L Holmes % (Auto) 6.3 Eos % (Auto) 0.1 Baso % (Auto) 0.0 Neut # (Auto) 3.1 Lymph # (Auto) 0.1 L Holmes # (Auto) 0.2 Eos # (Auto) 0.0 Baso # (Auto) 0.0 WBC Differential . Seg Neuts % (Manual) Band Neuts % (Manual) Lymphocytes % (Manual) Basophils % (Manual) Abs Neuts (Manual) Differential Comment Auto diff final Platelet Estimate Platelet Morphology Acanthocytes (Spur) PT INR APTT Sodium Potassium Chloride Carbon Dioxide Anion Gap BUN Creatinine Estimated GFR POC Glucose 150 H 143 H Random Glucose Calcium Prot Corrected Calcium Phosphorus Magnesium Total Protein Ur Collection Duration Urine Total Volume Ur VMA mg/day Ur VMA mg/gm Creat Tacrolimus HLA % Reactive Ab 05/03/18 05/03/18 05/03/18 03:40 05:30 06:25 WBC 3.8 L RBC 2.58 L Hgb 8.3 L Hct 24.1 L MCV 93.7 MCH 32.4 MCHC 34.6 RDW 15.8 Plt Count 122 L MPV 9.1 Prelim Diff (Auto) Neut % (Auto) 91.0 H Lymph % (Auto) 1.4 L Holmes % (Auto) 7.2 Eos % (Auto) 0.3 Baso % (Auto) 0.1 Neut # (Auto) 3.5 Lymph # (Auto) 0.1 L Holmes # (Auto) 0.3 Eos # (Auto) 0.0 Baso # (Auto) 0.0 WBC Differential . Seg Neuts % (Manual) Band Neuts % (Manual) Lymphocytes % (Manual) Basophils % (Manual) Abs Neuts (Manual) Differential Comment Auto diff final Platelet Estimate Platelet Morphology Acanthocytes (Spur) PT INR APTT Sodium 140 Potassium 3.7 Chloride 101 Carbon Dioxide 26.6 Anion Gap 12 BUN 70 H Creatinine 8.91 H Estimated GFR 7 L POC Glucose 111 H Random Glucose 94 Calcium 7.3 L* Prot Corrected Calcium 8.2 L Phosphorus 4.8 D Magnesium 1.9 Total Protein 5.5 L Ur Collection Duration Urine Total Volume Ur VMA mg/day Ur VMA mg/gm Creat Tacrolimus HLA % Reactive Ab 05/03/18 07:55 WBC RBC Hgb Hct MCV MCH MCHC RDW Plt Count MPV Prelim Diff (Auto) Neut % (Auto) Lymph % (Auto) Holmes % (Auto) Eos % (Auto) Baso % (Auto) Neut # (Auto) Lymph # (Auto) Holmes # (Auto) Eos # (Auto) Baso # (Auto) WBC Differential Seg Neuts % (Manual) Band Neuts % (Manual) Lymphocytes % (Manual) Basophils % (Manual) Abs Neuts (Manual) Differential Comment Platelet Estimate Platelet Morphology Acanthocytes (Spur) PT INR APTT Sodium Potassium Chloride Carbon Dioxide Anion Gap BUN Creatinine Estimated GFR POC Glucose 125 H Random Glucose Calcium Prot Corrected Calcium Phosphorus Magnesium Total Protein Ur Collection Duration Urine Total Volume Ur VMA mg/day Ur VMA mg/gm Creat Tacrolimus HLA % Reactive Ab - Procedures 1. [facility] renal transplant , [facility].. please use 22 modifier due to case being much harder than average due to severe atherosclerosis of the iliac artery 2. Complex backbench preparation of right donor kidney 3. Placement of ureteral stent
--- NOTE | 2018-05-03 09:50 | P.DIET ---
Nutritional Evaluation Type of nutrition evaluation: follow-up Screening comments: F/U Nutrition Assessment, nutrition education and discharge planning Subjective Subjective Comments: Pt verbalizes no complaints at this time. States he is eating "pretty well". Objective - Diagnosis Kidney Transplant - Objective % IBW: 83 Body Weight Used for Calculations: Actual Energy Needs - Lower Range (kCal/kg): 30 Energy Needs - Upper Range (kCal/kg): 35 Lower Limit kCal/kg (kCals): 2,010 Upper Limit kCal/kg (kCals): 2,345 Lower Limit Protein Factor (Grams per Kg): 1.2 Upper Limit Protein Factor (Grams per Kg): 1.5 Lower Protein Needs (Protein): 74 Upper Protein Needs (Protein): 101 Dietitian Reviewed in Medical Record: Current diet, Curent medications, Intake & Output, Labs Diet Order: 1800 ADA, 50 gm Pro, 2 gm Na, 40 meq K Objective Comments: Pt's nutritional needs based on 67kg PMH: Hypertension, diabetes mellitus, end-stage renal disease, was on hemodialysis, history of hepatitis C, history of bladder cancer. Labs include: Cr 8.91, K+ 3.7, Phos 4.8, Ca 7.3 UOP: 500mls, HD with 1L removed Assessment Assessment: POD #9 DDKT Pt remains at nutritional risk r/t current clinical status. Pt with delayed kidney function, but urine output is increasing and potassium is holding within normal limits. Pt had HD yesterday and is scheduled for renal US this morning. Pt reports he feels fine and is eating well. Educated pt and on renal diet to follow until kidney is functioning well. Pt may have HD as an outpatient. Will continue to follow pt with the transplant team and monitor clinical course. Recommendations: POD #9, Pt s/p DDKT on / Pt with delayed kidney function Educated pt and on renal diet for use after d/c until kidney is functioning well In the outpatient clinic, will reassess and provide any nutrition education relative to clinical course. Dietitian to Monitor: Lab values, Renal labs, Intake & Output, Diet tolerance, Weight change, PO Intake, Medical course
--- NOTE | 2018-05-03 10:04 | P.RAD ---
Post Procedure Progress Note - Pre Procedure Diagnosis (1) Kidney transplant rejection - Post Procedure Diagnosis (1) Kidney transplant rejection - Procedure Information Supervising Radiologist: Suraj Rubio MD Anesthesia: Local, Analgesia - Plan of Activity Patient to Unit: Nursing Unit Patient Condition: Good See PACS Report for procedural detail/treatment. Biopsy Ultrasound Kidney Specimen: Core Biopsy
--- NOTE | 2018-05-03 11:54 | US ---
EXAM DATE: 05/03/2018 11:44 AM EDT AGE/SEX: 67 years / Male INDICATIONS: Transplant kidney rejection. CLINICAL DATA: This is the patient's initial encounter. Patient reports that signs and symptoms have been present for 2 days and indicates a pain score of 0/10. MEDICAL/SURGICAL HISTORY: . Diabetes. Renal disease, end stage. Hepatitis C. Diverticulosis. Bl adder cancer. Thyroid cancer. HTN. . Thyroidectomy. Cholecystectomy. AV fistula. Bladder surgery. Li thotripsy. Renal transplant. COMPARISON: [facility] [place] W DOP, 04/25/2018. . MEDICATION(S): 150mg fentanyl (Sublimaze) IV . ORGAN: Right lower quadrant SPECIMEN(S): Two core specimen(s) submitted for pathologic evaluation. DEVICE(S): 18 gauge Bard needle Post procedure scanning reveals no hematoma or other complication. The possibility does exist that the tissue obtained will be non-diagnostic. If the sample is non-diag nostic, a repeat biopsy or surgical biopsy may need to be performed. TECHNIQUE: 1. Ultrasound guidance for needle biopsy. 2. Needle biopsy. 3. 4. . . The risks, benefits and alternatives to the procedure were explained and verbal and written consent w as obtained. The site was prepped in sterile fashion. Full sterile technique was used, including ca p, mask, sterile gloves and gown and a large sterile sheet. Hand hygiene and 2% chlorhexidine and/or betadine/alcohol prep was utilized per protocol for cutaneous antisepsis. The skin and subcutaneous tissues were infiltrated with local anesthetic solution. Sterile gel and sterile probe cover were u tilized for ultrasound guidance. With the patient on the ultrasound table, images were obtained. A needle was advanced into the identified target and the number of specimens as above obtained and ross bmitted for pathologic evaluation. The patient tolerated the procedure well and left the ultrasound suite in stable condition. FINDINGS: A very narrow window for right pelvic renal transplant biopsy was available. 2 specimens were obtaine d. CONCLUSION: Ultrasound guided biopsy of a right pelvic renal transplant completed. Electronically signed by: Suraj Rubio MD 05/03/2018 11:52 AM EDT
--- NOTE | 2018-05-03 12:08 | P.PNTS ---
Subjective Interval history: No new c/o Physical Exam Vital signs: Vital Signs 05/02/18 13:00 05/02/18 14:00 05/02/18 15:00 Temperature 97.4 F L Pulse Rate 84 76 75 Respiratory Rate 16 Blood Pressure 175/84 H Pulse Oximetry 97 05/02/18 16:00 05/02/18 17:00 05/02/18 18:00 Temperature Pulse Rate 80 78 76 Respiratory Rate Blood Pressure Pulse Oximetry 05/02/18 18:17 05/02/18 19:30 05/02/18 20:00 Temperature 98.8 F Pulse Rate 77 70 Respiratory Rate 17 Blood Pressure 168/79 H Pulse Oximetry 94 L 97 97 05/02/18 21:00 05/02/18 22:00 05/02/18 23:56 Temperature 98.2 F Pulse Rate 72 73 82 Respiratory Rate 18 Blood Pressure 173/79 H Pulse Oximetry 97 05/03/18 00:05 05/03/18 00:06 05/03/18 01:00 Temperature Pulse Rate 73 73 75 Respiratory Rate Blood Pressure Pulse Oximetry 05/03/18 02:10 05/03/18 03:15 05/03/18 04:00 Temperature 98.9 F Pulse Rate 77 72 76 Respiratory Rate 18 Blood Pressure 142/71 H Pulse Oximetry 96 05/03/18 05:45 05/03/18 06:00 05/03/18 07:00 Temperature 98.1 F Pulse Rate 71 72 77 Respiratory Rate 20 Blood Pressure 142/70 H Pulse Oximetry 97 05/03/18 08:00 05/03/18 08:48 05/03/18 10:00 Temperature 98.4 F Pulse Rate 79 77 76 Respiratory Rate 18 Blood Pressure 143/74 H Pulse Oximetry 92 L 05/03/18 11:00 Temperature 97.9 F Pulse Rate 75 Respiratory Rate 20 Blood Pressure 159/73 H Pulse Oximetry 99 Intake & Output 05/02/18 05/03/18 05/03/18 18:59 06:59 18:59 Intake Total 240 / 240 Output Total 1000 / 1000 500 / 500 Balance -1000 / -1000 -260 / -260 Weight 82.5 kg 79.8 kg Intake: Oral 240 / 240 Output: Urine 500 / 500 Hemodialysis Amount 1000 / 1000 Other: Date of Last Bowel Movement 04/28/18 05/02/18 05/02/18 # Bowel Movements 0 - Constitutional no acute distress - Routine HEENT Exam Head: Present: normocephalic, atraumatic - Routine Neck Exam Present: supple - Routine Respiratory Exam Present: CTA bilaterally - Routine Cardiovascular Exam Present: RRR, S1, S2 - Routine Abdominal Exam Present: soft, normoactive bowel sounds Comments: abd soft nontender, nondistended,. Wound CDI without EFT. - Routine Exam Comments: continued hematuria - Routine Extremities Exam Present: pulses intact Comments: calves soft , nontender bilaterally. intact distal pulses - Routine Neurological Exam Present: alert, oriented X3 - Routine Psychiatric Exam Present: normal affect, normal thought process - Urinary Catheter Management Condom Cath placed during this visit: no Urethral indwelling: No Reason for continuing: Hourly intake/output Indwelling Urethral Catheter Cath placed during this visit: yes, but has since been removed by the nurse Urethral indwelling: No Reason for continuing: Decision to DC catheter Insertion date: 04/24/18 Insertion time: 13:00 Removal date: 04/27/18 Removal time: 21:00 Results - Labs CBC & Chem 7: 05/03/18 06:25 05/03/18 03:40 Laboratory Results - last 24 hr 04/28/18 05/02/18 05/02/18 12:42 06:05 13:11 WBC RBC Hgb Hct MCV MCH MCHC RDW Plt Count MPV Neut % (Auto) Lymph % (Auto) Dent % (Auto) Eos % (Auto) Baso % (Auto) Neut # (Auto) Lymph # (Auto) [place] # (Auto) Eos # (Auto) Baso # (Auto) WBC Differential Differential Comment PT 10.3 INR 1.0 APTT Sodium Potassium Chloride Carbon Dioxide Anion Gap BUN Creatinine Estimated GFR POC Glucose Random Glucose Calcium Prot Corrected Calcium Phosphorus Magnesium Total Protein Tacrolimus 5.1 HLA % Reactive Ab Sent to [facility] path lab 05/02/18 05/02/18 05/02/18 13:11 16:38 20:42 WBC RBC Hgb Hct MCV MCH MCHC RDW Plt Count MPV Neut % (Auto) Lymph % (Auto) Dent % (Auto) Eos % (Auto) Baso % (Auto) Neut # (Auto) Lymph # (Auto) [place] # (Auto) Eos # (Auto) Baso # (Auto) WBC Differential Differential Comment PT INR APTT 26.6 Sodium Potassium Chloride Carbon Dioxide Anion Gap BUN Creatinine Estimated GFR POC Glucose 146 H 150 H Random Glucose Calcium Prot Corrected Calcium Phosphorus Magnesium Total Protein Tacrolimus HLA % Reactive Ab 05/02/18 05/03/18 05/03/18 23:20 03:40 03:40 WBC 3.3 L RBC 2.39 L Hgb 7.7 L Hct 22.2 L MCV 92.9 MCH 32.1 MCHC 34.6 RDW 15.3 Plt Count 109 L MPV 9.4 Neut % (Auto) 92.1 H Lymph % (Auto) 1.5 L Dent % (Auto) 6.3 Eos % (Auto) 0.1 Baso % (Auto) 0.0 Neut # (Auto) 3.1 Lymph # (Auto) 0.1 L Dent # (Auto) 0.2 Eos # (Auto) 0.0 Baso # (Auto) 0.0 WBC Differential . Differential Comment Auto diff final PT INR APTT Sodium 140 Potassium 3.7 Chloride 101 Carbon Dioxide 26.6 Anion Gap 12 BUN 70 H Creatinine 8.91 H Estimated GFR 7 L POC Glucose 143 H Random Glucose 94 Calcium 7.3 L* Prot Corrected Calcium 8.2 L Phosphorus 4.8 D Magnesium 1.9 Total Protein 5.5 L Tacrolimus HLA % Reactive Ab 05/03/18 05/03/18 05/03/18 05:30 06:25 07:55 WBC 3.8 L RBC 2.58 L Hgb 8.3 L Hct 24.1 L MCV 93.7 MCH 32.4 MCHC 34.6 RDW 15.8 Plt Count 122 L MPV 9.1 Neut % (Auto) 91.0 H Lymph % (Auto) 1.4 L Dent % (Auto) 7.2 Eos % (Auto) 0.3 Baso % (Auto) 0.1 Neut # (Auto) 3.5 Lymph # (Auto) 0.1 L [place] # (Auto) 0.3 Eos # (Auto) 0.0 Baso # (Auto) 0.0 WBC Differential . Differential Comment Auto diff final PT INR APTT Sodium Potassium Chloride Carbon Dioxide Anion Gap BUN Creatinine Estimated GFR POC Glucose 111 H 125 H Random Glucose Calcium Prot Corrected Calcium Phosphorus Magnesium Total Protein Tacrolimus HLA % Reactive Ab 05/03/18 11:09 WBC RBC Hgb Hct MCV MCH MCHC RDW Plt Count MPV Neut % (Auto) Lymph % (Auto) Dent % (Auto) Eos % (Auto) Baso % (Auto) Neut # (Auto) Lymph # (Auto) [place] # (Auto) Eos # (Auto) Baso # (Auto) WBC Differential Differential Comment PT INR APTT Sodium Potassium Chloride Carbon Dioxide Anion Gap BUN Creatinine Estimated GFR POC Glucose 206 H Random Glucose Calcium Prot Corrected Calcium Phosphorus Magnesium Total Protein Tacrolimus HLA % Reactive Ab - Imaging Impressions Renal Biopsy Ultrasound 05/03/18 00:00 CONCLUSION: Ultrasound guided biopsy of a right pelvic renal transplant completed. - Procedures 1. donor renal transplant , with renal allograft to [facility]'s right iliac fossa.. please use 22 modifier due to case being much harder than average due to severe atherosclerosis of the iliac artery 2. Complex backbench preparation of right donor kidney 3. Placement of ureteral stent Assessment and Plan - Assessment (1) Diabetes mellitus type 2, diet-controlled Code(s): E11.9 - Type 2 diabetes mellitus without complications Status: Chronic (2) History of hypertension Code(s): Z86.79 - Personal history of other diseases of the circulatory system Status: Chronic (3) End stage renal disease Code(s): N18.6 - End stage renal disease Status: Chronic - Plan Post op Day: 8 Patient: Mr Carvajal is status post DDKT for ESRD secondary to DM/HTN. US x 2 postop, shows patent vessels and reasonable RIs. Renal scan 04/28/18, with good flow, but no colloid uptake in transplant kidney Prophylaxis: Decubitus ulcer: patient awake, alert, and mobile CMV prophylaxis with valcyte PCP prophylaxis: bactrim Consults: Transplant Nephrology Assessment and Plan: S/P DDKT to right iliac fossa. Allograft function: Continued elevated creatinine, although improved with HD. Lasix 80 mg bid. On prograf 4 mg bid. Awaiting results of DSA. Renal transplant biopsy today -await results. Patient has had significant issues with hypertension refractory to oral regimen; necessitating multiple resumptions of cardene drip. His hypertension has been better for the last 5 days, with current adjusted BP regimen.. On regular consistency diabetic-renal diet. On colace. Continue insulin sliding scale. Will continue daily standing weight. B SCDs. On Flomax. Probable discharge in next 1-2 days. . Immunosuppression: Thymo induction; Maint: steroids + Cellcept 1000 mg BID + Tacrolimus 4 mg BID
[2018-05-03] MEDS ORDERED: Lidocaine PF 1% Inj 30 ML Vial ONE (13:16)
--- NOTE | 2018-05-03 18:20 | P.PNNP ---
Subjective Interval history: Patient is alert, no SOB, feeling better. Physical Exam Vital signs: Vital Signs 05/02/18 18:17 05/02/18 19:30 05/02/18 20:00 Temperature 98.8 F Pulse Rate 77 70 Respiratory Rate 17 Blood Pressure 168/79 H Pulse Oximetry 94 L 97 97 05/02/18 21:00 05/02/18 22:00 05/02/18 23:56 Temperature 98.2 F Pulse Rate 72 73 82 Respiratory Rate 18 Blood Pressure 173/79 H Pulse Oximetry 97 05/03/18 00:05 05/03/18 00:06 05/03/18 01:00 Temperature Pulse Rate 73 73 75 Respiratory Rate Blood Pressure Pulse Oximetry 05/03/18 02:10 05/03/18 03:15 05/03/18 04:00 Temperature 98.9 F Pulse Rate 77 72 76 Respiratory Rate 18 Blood Pressure 142/71 H Pulse Oximetry 96 05/03/18 05:45 05/03/18 06:00 05/03/18 07:00 Temperature 98.1 F Pulse Rate 71 72 77 Respiratory Rate 20 Blood Pressure 142/70 H Pulse Oximetry 97 05/03/18 08:00 05/03/18 08:48 05/03/18 10:00 Temperature 98.4 F Pulse Rate 79 77 76 Respiratory Rate 18 Blood Pressure 143/74 H Pulse Oximetry 92 L 05/03/18 11:00 05/03/18 12:00 05/03/18 13:00 Temperature 97.9 F Pulse Rate 75 79 80 Respiratory Rate 20 Blood Pressure 159/73 H Pulse Oximetry 99 05/03/18 14:00 05/03/18 15:00 05/03/18 16:00 Temperature 98.0 F Pulse Rate 71 70 70 Respiratory Rate 20 Blood Pressure 134/60 Pulse Oximetry 98 05/03/18 17:00 05/03/18 17:37 05/03/18 18:00 Temperature Pulse Rate 74 78 Respiratory Rate Blood Pressure Pulse Oximetry 98 Intake & Output 05/02/18 05/03/18 05/03/18 18:59 06:59 18:59 Intake Total 240 / 240 Output Total 1000 / 1000 500 / 500 Balance -1000 / -1000 -260 / -260 Weight 82.5 kg 79.8 kg Intake: Oral 240 / 240 Output: Urine 500 / 500 Hemodialysis Amount 1000 / 1000 Other: Date of Last Bowel Movement 04/28/18 05/02/18 05/02/18 # Bowel Movements 0 - Constitutional no acute distress - Routine HEENT Exam Head: Present: normocephalic - Routine Neck Exam Present: supple - Routine Respiratory Exam Present: decreased breath sounds, rales, rhonchi - Routine Cardiovascular Exam Present: RRR, S1, S2 - Routine Abdominal Exam Present: soft, normoactive bowel sounds, distended - Routine Neurological Exam Present: alert, oriented X3 - Urinary Catheter Management Condom Cath placed during this visit: no Urethral indwelling: No Reason for continuing: Hourly intake/output Indwelling Urethral Catheter Cath placed during this visit: yes, but has since been removed by the nurse Urethral indwelling: No Reason for continuing: Decision to DC catheter Insertion date: 04/24/18 Insertion time: 13:00 Removal date: 04/27/18 Removal time: 21:00 Assessment and Plan - Plan Assessment: 1. Post Cadaveric Renal Transplant. 2. End Stage renal disease. 3. Hypertension. 4. Hyperkalemia. 5. Anemia. Plan: Patient has DGF and still the Creatinine is elevated. Urine out put is better. K is now normal On CellCept and also given ATG. Prograf level 5.1 and now on Tacrolimus 4 mg BID. BP is now better controlled now, off Nicardipine, Hgb. is stable at 9.1, WBC and platelets decreased - however stable, will follow. BUN and Creatinine better after HD , done yesterday. To get transplant kidney Biopsy, to see if has DGF or rejection. Follow the urine out put and BMP. I called [facility] to arrange out patient HD.
[2018-05-04] MEDS: Insulin NovoLOG Aspart Correctional Sugar Inj SQ SCH ×6 (02:20→22:02)
[2018-05-04 04:11] LABS: Baso % (Auto) 0.3 % (0.0-2.0); Eos % (Auto) 0.8 % (0.0-4.0); Hematocrit 22.4 % (39.0-51.0); Hemoglobin 7.8 gm/dL (13.0-17.0); Lymph # (Auto) 0.1 th/mm3 (1.0-4.8); Lymph % (Auto) 1.8 % (9.0-44.0); Mean Corpuscular HGB Conc 34.9 % (32.0-36.0); Mean Corpuscular Hemoglobin 32.7 pg (27.0-34.0); Mean Corpuscular Volume 93.6 fL (80.0-100.0); Mean Platelet Volume 8.8 fL (7.0-11.0); Mono # (Auto) 0.3 th/mm3 (0.0-0.9); Mono % (Auto) 7.2 % (0.0-8.0); Neut # (Auto) 4.4 th/mm3 (1.8-7.7); Neut % (Auto) 89.9 % (16.0-70.0); Platelet Count 137 th/mm3 (150-450); Red Blood Count 2.39 mil/mm3 (4.50-5.90); Red Cell Distribution Width 15.8 % (11.6-17.2); White Blood Count 4.9 th/mm3 (4.0-11.0)
[2018-05-04 04:33] LABS: Calcium 7.2 mg/dL (8.5-10.1); Carbon Dioxide 26.7 meq/L (21.0-32.0); Phosphorus 5.2 mg/dL (2.5-4.9); Potassium 3.8 meq/L (3.5-5.1)
[2018-05-04 05:11] LABS: Total Protein 5.4 g/dL (6.4-8.2)
[2018-05-04] MEDS ORDERED: Benzocaine/Menthol 15 MG/3.6 MG SF Lozenge BUCCAL PRN (08:41)
--- NOTE | 2018-05-04 09:16 | P.PNTS ---
Subjective Interval history: No new c/o. Says he feels "fine" Physical Exam Vital signs: Vital Signs 05/03/18 10:00 05/03/18 11:00 05/03/18 12:00 Temperature 97.9 F Pulse Rate 76 75 79 Respiratory Rate 20 Blood Pressure 159/73 H Pulse Oximetry 99 05/03/18 13:00 05/03/18 14:00 05/03/18 15:00 Temperature 98.0 F Pulse Rate 80 71 70 Respiratory Rate 20 Blood Pressure 134/60 Pulse Oximetry 98 05/03/18 16:00 05/03/18 17:00 05/03/18 17:37 Temperature Pulse Rate 70 74 Respiratory Rate Blood Pressure Pulse Oximetry 98 05/03/18 18:00 05/03/18 19:00 05/03/18 19:20 Temperature 98.4 F Pulse Rate 78 76 77 Respiratory Rate 19 Blood Pressure 149/75 H Pulse Oximetry 94 L 05/03/18 20:00 05/03/18 21:00 05/03/18 22:42 Temperature Pulse Rate 72 75 76 Respiratory Rate Blood Pressure Pulse Oximetry 05/03/18 23:37 05/04/18 00:00 05/04/18 01:00 Temperature 98.1 F Pulse Rate 79 71 74 Respiratory Rate 20 Blood Pressure 156/76 H Pulse Oximetry 95 05/04/18 02:20 05/04/18 03:55 05/04/18 04:15 Temperature 98.8 F Pulse Rate 74 76 76 Respiratory Rate 19 Blood Pressure 157/74 H Pulse Oximetry 97 05/04/18 05:00 05/04/18 06:40 05/04/18 07:00 Temperature 98.1 F Pulse Rate 74 73 74 Respiratory Rate 16 Blood Pressure 168/77 H Pulse Oximetry 96 Intake & Output 05/03/18 05/04/18 05/04/18 18:59 06:59 18:59 Intake Total 960 / 960 480 / 480 Output Total 425 / 425 425 / 425 Balance 535 / 535 55 / 55 Weight 79.3 kg Intake: Oral 960 / 960 480 / 480 Output: Urine 425 / 425 Urine Amount (Catheter) 275 / 275 Condom 275 / 275 Wound Drainage 150 / 150 # 1 Right Abdomen Nick 150 / 150 Other: Date of Last Bowel Movement 05/02/18 # Bowel Movements 0 - Constitutional no acute distress - Routine HEENT Exam Head: Present: normocephalic, atraumatic Eye: Present: EOMI - Routine Neck Exam Present: supple - Routine Respiratory Exam Present: CTA bilaterally - Routine Extremities Exam Present: pulses intact Comments: calves soft NT B. No peripheral edema - Routine Skin Exam Present: intact - Routine Neurological Exam Present: alert - Routine Psychiatric Exam Present: normal affect - Urinary Catheter Management Condom Cath placed during this visit: no Urethral indwelling: No Reason for continuing: Hourly intake/output Indwelling Urethral Catheter Cath placed during this visit: yes, but has since been removed by the nurse Urethral indwelling: No Reason for continuing: Decision to DC catheter Insertion date: 04/24/18 Insertion time: 13:00 Removal date: 04/27/18 Removal time: 21:00 Results - Labs CBC & Chem 7: 05/04/18 03:30 05/04/18 03:30 Laboratory Results - last 24 hr 05/03/18 05/03/18 05/03/18 03:40 11:09 11:32 WBC RBC Hgb 9.0 L Hct 26.0 L MCV MCH MCHC RDW Plt Count MPV Neut % (Auto) Lymph % (Auto) Holt % (Auto) Eos % (Auto) Baso % (Auto) Neut # (Auto) Lymph # (Auto) [place] # (Auto) Eos # (Auto) Baso # (Auto) WBC Differential Differential Comment Sodium Potassium Chloride Carbon Dioxide Anion Gap BUN Creatinine Estimated GFR POC Glucose 206 H Random Glucose Calcium Prot Corrected Calcium Phosphorus Magnesium Total Protein Tacrolimus 10.0 05/03/18 05/03/18 05/04/18 16:02 19:56 03:30 WBC 4.9 RBC 2.39 L Hgb 7.8 L Hct 22.4 L MCV 93.6 MCH 32.7 MCHC 34.9 RDW 15.8 Plt Count 137 L MPV 8.8 Neut % (Auto) 89.9 H Lymph % (Auto) 1.8 L Holt % (Auto) 7.2 Eos % (Auto) 0.8 Baso % (Auto) 0.3 Neut # (Auto) 4.4 Lymph # (Auto) 0.1 L [place] # (Auto) 0.3 Eos # (Auto) 0.0 Baso # (Auto) 0.0 WBC Differential . Differential Comment Auto diff final Sodium Potassium Chloride Carbon Dioxide Anion Gap BUN Creatinine Estimated GFR POC Glucose 209 H 200 H Random Glucose Calcium Prot Corrected Calcium Phosphorus Magnesium Total Protein Tacrolimus 05/04/18 05/04/18 05/04/18 03:30 05:25 07:48 WBC RBC Hgb Hct MCV MCH MCHC RDW Plt Count MPV Neut % (Auto) Lymph % (Auto) [place] % (Auto) Eos % (Auto) Baso % (Auto) Neut # (Auto) Lymph # (Auto) [place] # (Auto) Eos # (Auto) Baso # (Auto) WBC Differential Differential Comment Sodium 139 Potassium 3.8 Chloride 100 Carbon Dioxide 26.7 Anion Gap 12 BUN 82 H Creatinine 9.71 H Estimated GFR 7 L POC Glucose 131 H 117 H Random Glucose 104 Calcium 7.2 L* Prot Corrected Calcium 8.1 L Phosphorus 5.2 H Magnesium 2.0 Total Protein 5.4 L Tacrolimus - Imaging Impressions Renal Biopsy Ultrasound 05/03/18 00:00 CONCLUSION: Ultrasound guided biopsy of a right pelvic renal transplant completed. - Procedures 1. donor renal transplant , with renal allograft to [facility]'s right iliac fossa.. please use 22 modifier due to case being much harder than average due to severe atherosclerosis of the iliac artery 2. Complex backbench preparation of right donor kidney 3. Placement of ureteral stent Assessment and Plan - Assessment (1) Diabetes mellitus type 2, diet-controlled Code(s): E11.9 - Type 2 diabetes mellitus without complications Status: Chronic (2) History of hypertension Code(s): Z86.79 - Personal history of other diseases of the circulatory system Status: Chronic (3) End stage renal disease Code(s): N18.6 - End stage renal disease Status: Chronic - Plan Post op Day: 8 Patient: Mr Carvajal is status post DDKT for ESRD secondary to DM/HTN. US x 2 postop, shows patent vessels and reasonable RIs. Renal scan 04/28/18, with good flow, but no colloid uptake in transplant kidney Prophylaxis: Decubitus ulcer: patient awake, alert, and mobile CMV prophylaxis with valcyte PCP prophylaxis: bactrim Consults: Transplant Nephrology Assessment and Plan: S/P DDKT to right iliac fossa. Allograft function: Continued elevated creatinine. UOP 275 last 24 hours. Lasix 80 mg bid. Has approx 150 ml of serous fluid in ostomy bag placed around 0300 on 05/03/18 (unlcear if there was 150 since then or 150 overnight. Nurse will empty bag and monitor more closely. Fluid BUN/creat collected, reportedly both are send out labs, and BUN may be resulted by this PM and creat by Tuesday. Case reviewed with Dr Redman, will repeat a renal scan to help assess if urine leak present.On prograf 4 mg bid. Awaiting results of DSA. Renal transplant biopsy done yesterday -awaiting results. Patient has had significant issues with hypertension refractory to oral regimen; necessitating multiple resumptions of cardene drip. His hypertension has been better for the last few days, with current adjusted BP regimen.. On regular consistency diabetic-renal diet. On colace. Continue insulin sliding scale. Will continue daily standing weight. B SCDs. On Flomax. Await results of above mentioned testing. Immunosuppression: Thymo induction; Maint: steroids + Cellcept 1000 mg BID + Tacrolimus 4 mg BID
[2018-05-04] MEDS: Nystatin Liq 500,000 UNIT/5 ML UDC SWISH-SWAL SCH ×4 (10:13→21:56)
[2018-05-04] MEDS: Carvedilol 12.5 MG Tablet PO SCH (10:13)
[2018-05-04] MEDS: Vitamin B Complex/Vit C/Folic Tablet PO SCH (10:13)
[2018-05-04] MEDS: predniSONE 20 MG Tablet PO SCH (10:13)
[2018-05-04] MEDS: Docusate Sodium 100 MG Capsule PO SCH ×2 (10:13→21:56)
[2018-05-04] MEDS: amLODIPine 10 MG Tablet PO SCH (10:17)
--- NOTE | 2018-05-04 12:33 | P.PN ---
Physical Exam Vital signs: Vital Signs 05/03/18 13:00 05/03/18 14:00 05/03/18 15:00 Temperature 98.0 F Pulse Rate 80 71 70 Respiratory Rate 20 Blood Pressure 134/60 Pulse Oximetry 98 05/03/18 16:00 05/03/18 17:00 05/03/18 17:37 Temperature Pulse Rate 70 74 Respiratory Rate Blood Pressure Pulse Oximetry 98 05/03/18 18:00 05/03/18 19:00 05/03/18 19:20 Temperature 98.4 F Pulse Rate 78 76 77 Respiratory Rate 19 Blood Pressure 149/75 H Pulse Oximetry 94 L 05/03/18 20:00 05/03/18 21:00 05/03/18 22:42 Temperature Pulse Rate 72 75 76 Respiratory Rate Blood Pressure Pulse Oximetry 05/03/18 23:37 05/04/18 00:00 05/04/18 01:00 Temperature 98.1 F Pulse Rate 79 71 74 Respiratory Rate 20 Blood Pressure 156/76 H Pulse Oximetry 95 05/04/18 02:20 05/04/18 03:55 05/04/18 04:15 Temperature 98.8 F Pulse Rate 74 76 76 Respiratory Rate 19 Blood Pressure 157/74 H Pulse Oximetry 97 05/04/18 05:00 05/04/18 06:40 05/04/18 07:00 Temperature 98.1 F Pulse Rate 74 73 74 Respiratory Rate 16 Blood Pressure 168/77 H Pulse Oximetry 96 05/04/18 08:00 05/04/18 09:00 05/04/18 10:00 Temperature Pulse Rate 84 83 81 Respiratory Rate Blood Pressure Pulse Oximetry 05/04/18 11:00 05/04/18 12:00 Temperature 98.6 F Pulse Rate 67 67 Respiratory Rate 14 Blood Pressure 157/76 H Pulse Oximetry 96 Intake & Output 05/03/18 05/04/18 05/04/18 18:59 06:59 18:59 Intake Total 960 / 960 480 / 480 Output Total 425 / 425 425 / 425 Balance 535 / 535 55 / 55 Weight 79.3 kg Intake: Oral 960 / 960 480 / 480 Output: Urine 425 / 425 Urine Amount (Catheter) 275 / 275 Condom 275 / 275 Wound Drainage 150 / 150 # 1 Right Abdomen Nick 150 / 150 Other: Date of Last Bowel Movement 05/02/18 # Bowel Movements 0 Narrative: Subjective: In nad. Was able to ambulate. Says has no pain at this time at the surgical site. No fever or chills. Has constipation for [address] now[address] Dr[address] Melton renal transplant surgeon start MiraLAX. Appetite is improving and is able to eat, no n/v/d. Physical exam: GENERAL: Pleasant middle-age male, doesn't appear in acute distress CARDIOVASCULAR: Regular rate and rhythm without murmurs, gallops, or rubs. RESPIRATORY: Breath sounds equal bilaterally. No accessory muscle use. GASTROINTESTINAL: Abdomen soft, non-tender, nondistended. Incision is clean dry and intact. MUSCULOSKELETAL: No cyanosis, or edema. BACK: Nontender without obvious deformity. No CVA tenderness. Assessment and Plan 67yM with ESRD s/p DDKT, course complicated by severe hypertension and likely now delayed graft function. s/p DDKTx - anti-rejection meds per Dr. Melton. - likely plan for Thymo tomorrow. - strict i/o's ESRD -Status post renal transplantation -Management per transplant surgeon and assessment rn - HD per nephrology due to graft not functioning. Hypertension -Hydralazine 100mg po q8hr - carvedilol 25mg po BID - amlodipine 10mg daily - add clonidine 0.2mg po q8h- can increase to 0.3mg tonight or in the AM if not at goal. -Labetalol as needed - off nicardpine infusion. wean as tolerated. Type 2 diabetes mellitus -Diet-controlled -Insulin sliding scale Anemia -Drop in hemoglobin noted. Recheck hemoglobin pending. If low transplant surgery plans to obtain CT abdomen for further evaluation Hyperkalemia - s/p HD 04/28. Constipation: Add Miralsx continue dulcolax discussed with the patient DVT GI prophylaxis -Teds SCDs -Pharmacological DVT prophylaxis per transplant surgeon -1999 ADA DC plan: Improving. Now with constipation. Kidney function not improved significantly. Add Miralax. Plan for poss DC tomorrow. will have HD per nephro and renal transplant Dr Melton. - Urinary Catheter Management Condom Cath placed during this visit: no Urethral indwelling: No Reason for continuing: Hourly intake/output Indwelling Urethral Catheter Cath placed during this visit: yes, but has since been removed by the nurse Urethral indwelling: No Reason for continuing: Decision to DC catheter Insertion date: 04/24/18 Insertion time: 13:00 Removal date: 04/27/18 Removal time: 21:00 Results - Labs CBC & Chem 7: 05/04/18 03:30 05/04/18 03:30 Laboratory Results - last 24 hr 05/03/18 05/03/18 05/03/18 03:40 11:32 16:02 WBC RBC Hgb 9.0 L Hct 26.0 L MCV MCH MCHC RDW Plt Count MPV Neut % (Auto) Lymph % (Auto) [place] % (Auto) Eos % (Auto) Baso % (Auto) Neut # (Auto) Lymph # (Auto) [place] # (Auto) Eos # (Auto) Baso # (Auto) WBC Differential Differential Comment Sodium Potassium Chloride Carbon Dioxide Anion Gap BUN Creatinine Estimated GFR POC Glucose 209 H Random Glucose Calcium Prot Corrected Calcium Phosphorus Magnesium Total Protein Tacrolimus 10.0 05/03/18 05/04/18 05/04/18 19:56 03:30 03:30 WBC 4.9 RBC 2.39 L Hgb 7.8 L Hct 22.4 L MCV 93.6 MCH 32.7 MCHC 34.9 RDW 15.8 Plt Count 137 L MPV 8.8 Neut % (Auto) 89.9 H Lymph % (Auto) 1.8 L [place] % (Auto) 7.2 Eos % (Auto) 0.8 Baso % (Auto) 0.3 Neut # (Auto) 4.4 Lymph # (Auto) 0.1 L [place] # (Auto) 0.3 Eos # (Auto) 0.0 Baso # (Auto) 0.0 WBC Differential . Differential Comment Auto diff final Sodium 139 Potassium 3.8 Chloride 100 Carbon Dioxide 26.7 Anion Gap 12 BUN 82 H Creatinine 9.71 H Estimated GFR 7 L POC Glucose 200 H Random Glucose 104 Calcium 7.2 L* Prot Corrected Calcium 8.1 L Phosphorus 5.2 H Magnesium 2.0 Total Protein 5.4 L Tacrolimus 05/04/18 05/04/18 05/04/18 03:30 05:25 07:48 WBC RBC Hgb Hct MCV MCH MCHC RDW Plt Count MPV Neut % (Auto) Lymph % (Auto) [place] % (Auto) Eos % (Auto) Baso % (Auto) Neut # (Auto) Lymph # (Auto) [place] # (Auto) Eos # (Auto) Baso # (Auto) WBC Differential Differential Comment Sodium Potassium Chloride Carbon Dioxide Anion Gap BUN Creatinine Estimated GFR POC Glucose 131 H 117 H Random Glucose Calcium Prot Corrected Calcium Phosphorus Magnesium Total Protein Tacrolimus 4.5 L 05/04/18 11:39 WBC RBC Hgb Hct MCV MCH MCHC RDW Plt Count MPV Neut % (Auto) Lymph % (Auto) [place] % (Auto) Eos % (Auto) Baso % (Auto) Neut # (Auto) Lymph # (Auto) [place] # (Auto) Eos # (Auto) Baso # (Auto) WBC Differential Differential Comment Sodium Potassium Chloride Carbon Dioxide Anion Gap BUN Creatinine Estimated GFR POC Glucose 173 H Random Glucose Calcium Prot Corrected Calcium Phosphorus Magnesium Total Protein Tacrolimus - Procedures 1. donor renal transplant , with renal allograft to [facility]'s right iliac fossa.. please use 22 modifier due to case being much harder than average due to severe atherosclerosis of the iliac artery 2. Complex backbench preparation of right donor kidney 3. Placement of ureteral stent
[2018-05-04] MEDS: Polyethylene Glycol 3350 17 GM Packet PO SCH (13:44)
--- NOTE | 2018-05-04 15:16 | P.PNNP ---
Subjective Interval history: Patient is alert, no SOB, no pain at the site of Biopsy, eating well. Physical Exam Vital signs: Vital Signs 05/03/18 16:00 05/03/18 17:00 05/03/18 17:37 Temperature Pulse Rate 70 74 Respiratory Rate Blood Pressure Pulse Oximetry 98 05/03/18 18:00 05/03/18 19:00 05/03/18 19:20 Temperature 98.4 F Pulse Rate 78 76 77 Respiratory Rate 19 Blood Pressure 149/75 H Pulse Oximetry 94 L 05/03/18 20:00 05/03/18 21:00 05/03/18 22:42 Temperature Pulse Rate 72 75 76 Respiratory Rate Blood Pressure Pulse Oximetry 05/03/18 23:37 05/04/18 00:00 05/04/18 01:00 Temperature 98.1 F Pulse Rate 79 71 74 Respiratory Rate 20 Blood Pressure 156/76 H Pulse Oximetry 95 05/04/18 02:20 05/04/18 03:55 05/04/18 04:15 Temperature 98.8 F Pulse Rate 74 76 76 Respiratory Rate 19 Blood Pressure 157/74 H Pulse Oximetry 97 05/04/18 05:00 05/04/18 06:40 05/04/18 07:00 Temperature 98.1 F Pulse Rate 74 73 74 Respiratory Rate 16 Blood Pressure 168/77 H Pulse Oximetry 96 05/04/18 08:00 05/04/18 09:00 05/04/18 10:00 Temperature Pulse Rate 84 83 81 Respiratory Rate Blood Pressure Pulse Oximetry 05/04/18 11:00 05/04/18 12:00 05/04/18 13:00 Temperature 98.6 F Pulse Rate 67 67 66 Respiratory Rate 14 Blood Pressure 157/76 H Pulse Oximetry 96 Intake & Output 05/03/18 05/04/18 05/04/18 18:59 06:59 18:59 Intake Total 960 / 960 480 / 480 Output Total 425 / 425 425 / 425 Balance 535 / 535 55 / 55 Weight 79.3 kg Intake: Oral 960 / 960 480 / 480 Output: Urine 425 / 425 Urine Amount (Catheter) 275 / 275 Condom 275 / 275 Wound Drainage 150 / 150 # 1 Right Abdomen Nick 150 / 150 Other: Date of Last Bowel Movement 05/02/18 # Bowel Movements 0 Narrative: GENERAL: Pleasant middle-age male, doesn't appear in acute distress CARDIOVASCULAR: Regular rate and rhythm without murmurs, gallops, or rubs. RESPIRATORY: Breath sounds equal bilaterally. No accessory muscle use. GASTROINTESTINAL: Abdomen soft, non-tender, nondistended. Incision is clean dry and intact. MUSCULOSKELETAL: No cyanosis, or edema. BACK: Nontender without obvious deformity. No CVA tenderness. - Urinary Catheter Management Condom Cath placed during this visit: no Urethral indwelling: No Reason for continuing: Hourly intake/output Indwelling Urethral Catheter Cath placed during this visit: yes, but has since been removed by the nurse Urethral indwelling: No Reason for continuing: Decision to DC catheter Insertion date: 04/24/18 Insertion time: 13:00 Removal date: 04/27/18 Removal time: 21:00 Assessment and Plan - Plan Assessment: 1. Post Cadaveric Renal Transplant. 2. End Stage renal disease. 3. Hypertension. 4. Hyperkalemia. 5. Anemia. Plan: Patient has DGF and still the Creatinine is elevated. Urine out put is better. K is now normal On CellCept and also given ATG. Prograf level 5.1 and now on Tacrolimus 4 mg BID. BP is now better controlled now, off Nicardipine, Hgb. dropped to 7.8. WBC and platelets improving. BUN and Creatinine better after HD , done yesterday. Transplant kidney Biopsy done, now called by Pathologist. 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 Melton. Follow the urine out put and BMP. Possible HD tomorrow and discharge. Will need out patient HD, 2 times a week.
--- NOTE | 2018-05-04 17:40 | NM ---
EXAM DATE: 05/04/2018 3:01 PM EDT AGE/SEX: 67 years / Male INDICATIONS: Renal transplant. Patient with DGF post renal transplant. CLINICAL DATA: This is the patient's initial encounter. Patient reports that signs and symptoms have been present for 1 month and indicates a pain score of 3/10. MEDICAL/SURGICAL HISTORY: Carcinoma, bladder. Diabetes mellitus type II. Hypertension. Cholec ystectomy. Thyroidectomy. Bladder surgery. COMPARISON: [facility] – [place] RENAL TRANSPL[facility], 04/28/2018. . TECHNIQUE: Following the intravenous administration of radiotracer, dynamic imaging of flow and excre tory phases was performed. DOSE: 21.2 mCi Tc99m DTPA IV MEDICATION: 40 mg Lasix IV at 13 minutes. minutes. FINDINGS: Flow to the transplant is identified. There is poor target to background ratio characteristic of poor renal function. Considering this and the lack of concentration of activity in the renal pelvis the p resence or absence of urine leak cannot be determined. CONCLUSION: 1. Nondiagnostic examination for urine leak. Electronically signed by: Juve Beckman MD 05/04/2018 5:38 PM EDT
[2018-05-04] MEDS: Labetalol 200 MG Tablet PO SCH (21:57)
[2018-05-05 05:46] LABS: Baso % (Auto) 0.3 % (0.0-2.0); Eos % (Auto) 0.8 % (0.0-4.0); Hematocrit 22.5 % (39.0-51.0); Hemoglobin 7.8 gm/dL (13.0-17.0); Lymph # (Auto) 0.1 th/mm3 (1.0-4.8); Lymph % (Auto) 2.6 % (9.0-44.0); Mean Corpuscular HGB Conc 34.7 % (32.0-36.0); Mean Corpuscular Hemoglobin 32.5 pg (27.0-34.0); Mean Corpuscular Volume 93.9 fL (80.0-100.0); Mean Platelet Volume 8.4 fL (7.0-11.0); Mono # (Auto) 0.3 th/mm3 (0.0-0.9); Mono % (Auto) 5.9 % (0.0-8.0); Neut # (Auto) 4.5 th/mm3 (1.8-7.7); Neut % (Auto) 90.4 % (16.0-70.0); Platelet Count 159 th/mm3 (150-450); Red Cell Distribution Width 15.6 % (11.6-17.2)
[2018-05-05 06:07] LABS: Calcium 7.6 mg/dL (8.5-10.1); Carbon Dioxide 24.8 meq/L (21.0-32.0); Magnesium 2.1 mg/dL (1.5-2.5); Phosphorus 5.4 mg/dL (2.5-4.9); Potassium 3.8 meq/L (3.5-5.1)
[2018-05-05] MEDS: Insulin NovoLOG Aspart Correctional Sugar Inj SQ SCH ×4 (06:34→11:57)
[2018-05-05] MEDS: Nystatin Liq 500,000 UNIT/5 ML UDC SWISH-SWAL SCH ×3 (08:46→17:39)
[2018-05-05] MEDS: Labetalol 200 MG Tablet PO SCH (08:47)
[2018-05-05] MEDS: Vitamin B Complex/Vit C/Folic Tablet PO SCH (08:47)
[2018-05-05] MEDS: predniSONE 20 MG Tablet PO SCH (08:47)
[2018-05-05] MEDS: Docusate Sodium 100 MG Capsule PO SCH (08:47)
[2018-05-05] MEDS: amLODIPine 10 MG Tablet PO SCH (08:47)
[2018-05-05] MEDS: Polyethylene Glycol 3350 17 GM Packet PO SCH (08:50)
--- NOTE | 2018-05-05 08:50 | P.PNTS ---
Subjective Interval history: No new c/o Physical Exam Vital signs: Vital Signs 05/04/18 09:00 05/04/18 10:00 05/04/18 11:00 Temperature 98.6 F Pulse Rate 83 81 67 Respiratory Rate 14 Blood Pressure 157/76 H Pulse Oximetry 96 05/04/18 12:00 05/04/18 13:00 05/04/18 14:00 Temperature Pulse Rate 67 66 68 Respiratory Rate Blood Pressure Pulse Oximetry 05/04/18 15:00 05/04/18 16:00 05/04/18 17:00 Temperature 98.2 F Pulse Rate 66 70 64 Respiratory Rate 16 Blood Pressure 160/74 H Pulse Oximetry 95 05/04/18 18:00 05/04/18 19:00 05/04/18 20:00 Temperature Pulse Rate 66 70 70 Respiratory Rate Blood Pressure Pulse Oximetry 05/04/18 20:25 05/04/18 20:52 05/04/18 21:00 Temperature 97.9 F Pulse Rate 76 70 Respiratory Rate Blood Pressure 162/79 H Pulse Oximetry 96 96 05/04/18 22:00 05/04/18 23:00 05/04/18 23:46 Temperature 98 F Pulse Rate 72 74 76 Respiratory Rate Blood Pressure 152/74 H Pulse Oximetry 94 L 05/05/18 00:00 05/05/18 01:00 05/05/18 02:00 Temperature Pulse Rate 80 72 74 Respiratory Rate Blood Pressure Pulse Oximetry 05/05/18 03:00 05/05/18 04:00 05/05/18 05:00 Temperature 98.1 F Pulse Rate 74 71 70 Respiratory Rate Blood Pressure 154/74 H Pulse Oximetry 96 05/05/18 06:00 Temperature Pulse Rate 71 Respiratory Rate Blood Pressure Pulse Oximetry Intake & Output 05/04/18 05/05/18 05/05/18 18:59 06:59 18:59 Intake Total 920 / 920 420 / 420 Output Total 100 / 100 725 / 725 Balance 820 / 820 -305 / -305 Intake: Oral 920 / 920 420 / 420 Output: Urine 100 / 100 500 / 500 Wound Drainage 225 / 225 # 1 Right Abdomen Nick 225 / 225 Other: # Voids 1 Date of Last Bowel Movement 05/02/18 - Constitutional no acute distress - Routine HEENT Exam Head: Present: normocephalic ENT: Present: mucous membranes moist - Routine Neck Exam Present: supple - Routine Respiratory Exam Present: CTA bilaterally - Routine Cardiovascular Exam Present: RRR, S1, S2 - Routine Abdominal Exam Present: soft, normoactive bowel sounds Comments: wound clean with no signs of infection.. Former HARISH site with serous fluid ( approx 225 ml total since placed about 3 days ago. approx 75 ml since yesterdaya0 - Routine Extremities Exam Present: pulses intact Comments: Calves soft NT B. No peripheral edema - Routine Skin Exam Present: intact - Routine Neurological Exam Present: alert, oriented X3 - Detailed Neurological Exam: Coma Scale Verbal Response: Oriented - Routine Psychiatric Exam Present: normal affect, normal thought process - Urinary Catheter Management Condom Cath placed during this visit: no Urethral indwelling: No Reason for continuing: Hourly intake/output Indwelling Urethral Catheter Cath placed during this visit: yes, but has since been removed by the nurse Urethral indwelling: No Reason for continuing: Decision to DC catheter Insertion date: 04/24/18 Insertion time: 13:00 Removal date: 04/27/18 Removal time: 21:00 Results - Labs CBC & Chem 7: 05/05/18 05:17 05/05/18 05:17 Laboratory Results - last 24 hr 05/03/18 05/03/18 05/04/18 08:00 08:00 03:30 WBC RBC Hgb Hct MCV MCH MCHC RDW Plt Count MPV Neut % (Auto) Lymph % (Auto) [place] % (Auto) Eos % (Auto) Baso % (Auto) Neut # (Auto) Lymph # (Auto) [place] # (Auto) Eos # (Auto) Baso # (Auto) WBC Differential Differential Comment Sodium Potassium Chloride Carbon Dioxide Anion Gap BUN Creatinine Estimated GFR POC Glucose Random Glucose Calcium Phosphorus Magnesium Tacrolimus 4.5 L Misc Test Result 05/04/18 05/04/18 05/04/18 11:39 15:56 21:59 WBC RBC Hgb Hct MCV MCH MCHC RDW Plt Count MPV Neut % (Auto) Lymph % (Auto) [place] % (Auto) Eos % (Auto) Baso % (Auto) Neut # (Auto) Lymph # (Auto) [place] # (Auto) Eos # (Auto) Baso # (Auto) WBC Differential Differential Comment Sodium Potassium Chloride Carbon Dioxide Anion Gap BUN Creatinine Estimated GFR POC Glucose 173 H 110 187 H Random Glucose Calcium Phosphorus Magnesium Tacrolimus Misc Test Result 05/05/18 05/05/18 05/05/18 05:17 05:17 08:13 WBC 5.0 RBC 2.40 L Hgb 7.8 L Hct 22.5 L MCV 93.9 MCH 32.5 MCHC 34.7 RDW 15.6 Plt Count 159 MPV 8.4 Neut % (Auto) 90.4 H Lymph % (Auto) 2.6 L [place] % (Auto) 5.9 Eos % (Auto) 0.8 Baso % (Auto) 0.3 Neut # (Auto) 4.5 Lymph # (Auto) 0.1 L [place] # (Auto) 0.3 Eos # (Auto) 0.0 Baso # (Auto) 0.0 WBC Differential . Differential Comment Auto diff final Sodium 138 Potassium 3.8 Chloride 99 Carbon Dioxide 24.8 Anion Gap 14 BUN 104 H Creatinine 10.05 H* Estimated GFR 6 L POC Glucose 168 H Random Glucose 118 H Calcium 7.6 L Phosphorus 5.4 H Magnesium 2.1 Tacrolimus Misc Test Result - Imaging Impressions Renal Scan w/Medication NM 05/04/18 00:00 CONCLUSION: 1. Nondiagnostic examination for urine leak. - Procedures 1. donor renal transplant , with renal allograft to [facility]'s right iliac fossa.. please use 22 modifier due to case being much harder than average due to severe atherosclerosis of the iliac artery 2. Complex backbench preparation of right donor kidney 3. Placement of ureteral stent Assessment and Plan - Assessment (1) Diabetes mellitus type 2, diet-controlled Code(s): E11.9 - Type 2 diabetes mellitus without complications Status: Chronic (2) History of hypertension Code(s): Z86.79 - Personal history of other diseases of the circulatory system Status: Chronic (3) End stage renal disease Code(s): N18.6 - End stage renal disease Status: Chronic - Plan Post op Day: 8 Patient: Mr Carvajal is status post DDKT for ESRD secondary to DM/HTN. US x 2 postop, shows patent vessels and reasonable RIs. Renal scan 04/28/18, with good flow, but no colloid uptake in transplant kidney Prophylaxis: Decubitus ulcer: patient awake, alert, and mobile CMV prophylaxis with valcyte PCP prophylaxis: bactrim Consults: Transplant Nephrology Assessment and Plan: S/P DDKT to right iliac fossa. Allograft function: Continued elevated creatinine. UOP 275 last 24 hours. Lasix 80 mg bid. Has approx 225 ml of serous fluid in ostomy bag placed around 0300 on 05/03/18. Body Fluid BUN/creat c/w serum (not c/w urine leak). Repeat renal scan indeterminate.On prograf 4 mg bid. Will increase to 5 mg bid. DSA results negative. Renal transplant biopsywith 30% cortical necrosis. No rejection noted. Will repeat renal US to further reassess vasculature. Patient has had significant issues with hypertension refractory to oral regimen; necessitating multiple resumptions of cardene drip. His hypertension has been better for the last few days, with current adjusted BP regimen, did have to be adjusted again last evening.. On regular consistency diabetic-renal diet. On colace. No BM since 04/27/18, will give dulcolax supp today along withthe miralax. Continue insulin sliding scale. Will continue daily standing weight. B SCDs. On Flomax. Immunosuppression: Thymo induction; Maint: steroids + Cellcept 1000 mg BID + Tacrolimus 5 mg BID
[2018-05-05] MEDS ORDERED: Lidocaine 1%/Epinephrine 1:100,000 Inj 30 ML Vial ONE (10:18)
--- NOTE | 2018-05-05 11:12 | US ---
EXAM DATE: 05/05/2018 10:23 AM EDT AGE/SEX: 67 years / Male INDICATIONS: Increased lab values. CLINICAL DATA: This is the patient's subsequent encounter. Patient reports that signs and symptoms h ave been present for 2 weeks and indicates a pain score of 7/10. MEDICAL/SURGICAL HISTORY: . Diabetes. Renal disease, end stage. Hepatitis C. Diverticulosis. Bl adder cancer. Thyroid cancer. HTN. . Thyroidectomy. Cholecystectomy. AV fistula. Bladder surgery. Li thotripsy. [place] [facility] [place]03[place]2018. . MEASUREMENTS: Transplant Kidney:__11.0 x 4.7 x 5.2 cm Location:__Right lower quadrant [place] Arteries Resistive Index: Upper - 0.8 Mid - 0.8 Lower - 0.8 Main Renal Artery Velocity:__137.0 Main Renal Vein:__Patent External Iliac Artery Velocity:__328.0 cm/sec External Iliac Vein:__Patent cm/sec FINDINGS: Transplant Kidney: Normal echotexture and cortical thickness. No mass or hydronephrosis. No peritran splant fluid. Urinary Bladder: Within normal limits given the degree of distension. Other: None. CONCLUSION: 1. There is no hydronephrosis. There is no peritransplant fluid collection. Doppler evaluation appea rs normal. Electronically signed by: Umair Carnes MD 05/05/2018 11:11 AM EDT
--- NOTE | 2018-05-05 15:07 | P.PNNP ---
Subjective Interval history: Patient seen in AM, alert, no SOB, feeling better. Physical Exam Vital signs: Vital Signs 05/04/18 16:00 05/04/18 17:00 05/04/18 18:00 Temperature Pulse Rate 70 64 66 Respiratory Rate Blood Pressure Pulse Oximetry 05/04/18 19:00 05/04/18 20:00 05/04/18 20:25 Temperature 97.9 F Pulse Rate 70 70 76 Respiratory Rate Blood Pressure 162/79 H Pulse Oximetry 96 05/04/18 20:52 05/04/18 21:00 05/04/18 22:00 Temperature Pulse Rate 70 72 Respiratory Rate Blood Pressure Pulse Oximetry 96 05/04/18 23:00 05/04/18 23:46 05/05/18 00:00 Temperature 98 F Pulse Rate 74 76 80 Respiratory Rate Blood Pressure 152/74 H Pulse Oximetry 94 L 05/05/18 01:00 05/05/18 02:00 05/05/18 03:00 Temperature 98.1 F Pulse Rate 72 74 74 Respiratory Rate Blood Pressure 154/74 H Pulse Oximetry 96 05/05/18 04:00 05/05/18 05:00 05/05/18 06:00 Temperature Pulse Rate 71 70 71 Respiratory Rate Blood Pressure Pulse Oximetry 05/05/18 07:00 05/05/18 11:00 05/05/18 12:00 Temperature 98.3 F 97.9 F Pulse Rate 74 73 70 Respiratory Rate 16 16 Blood Pressure 172/84 H 156/76 H Pulse Oximetry 95 95 05/05/18 13:00 05/05/18 14:00 Temperature Pulse Rate 74 68 Respiratory Rate Blood Pressure Pulse Oximetry Intake & Output 05/04/18 05/05/18 05/05/18 18:59 06:59 18:59 Intake Total 920 / 920 420 / 420 Output Total 100 / 100 725 / 725 Balance 820 / 820 -305 / -305 Intake: Oral 920 / 920 420 / 420 Output: Urine 100 / 100 500 / 500 Wound Drainage 225 / 225 # 1 Right Abdomen Nick 225 / 225 Other: # Voids 1 Date of Last Bowel Movement 05/02/18 Narrative: GENERAL: Pleasant middle-age male, alert,no sob, in acute distress CARDIOVASCULAR: Regular rate and rhythm without murmurs, gallops, or rubs. RESPIRATORY: Breath sounds equal bilaterally. No accessory muscle use. GASTROINTESTINAL: Abdomen soft, non-tender, nondistended. Incision is clean dry and intact. MUSCULOSKELETAL: No cyanosis, or edema. BACK: Nontender without obvious deformity. No CVA tenderness. - Urinary Catheter Management Condom Cath placed during this visit: no Urethral indwelling: No Reason for continuing: Hourly intake/output Indwelling Urethral Catheter Cath placed during this visit: yes, but has since been removed by the nurse Urethral indwelling: No Reason for continuing: Decision to DC catheter Insertion date: 04/24/18 Insertion time: 13:00 Removal date: 04/27/18 Removal time: 21:00 Assessment and Plan - Plan Assessment: 1. Post Cadaveric Renal Transplant. 2. End Stage renal disease. 3. Hypertension. 4. Hyperkalemia. 5. Anemia. Plan: Patient has DGF and still the Creatinine is elevated. Urine out put is better. K is now normal On CellCept and also given ATG. Prograf level 5.1 and now on Tacrolimus 4 mg BID. BP is now better controlled now, off Nicardipine, Hgb. dropped to 7.8. WBC and platelets improving. BUN and Creatinine still elevated. Transplant kidney Biopsy done on 05/03. 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 Melton, will start planning for discharge. Started on Glipizide for BS. HD today, and remove only 500 ml-1000 ml. Out patient HD arranged for Mon. and Fri at [facility] [place]. Prograf level 6.1, dose increase to 5 mg BID. BP is better, started on Labetalol yesterday, can increase to 300 mg BID if needed. Follow the urine out put and BMP. If discharge to follow on Tuesday at Transplant clinic.
== END 2018-05-06 09:19 | disposition home or self-care (01) ==
LOC: HCPC 21:31 → HCVI 04-24 16:30 → HCPC 04-26 17:01 → HCVI 04-27 05:50 → HCPC 05-02 10:48
PROVIDERS: ADMIT Surgery; ATTEND Surgery

== ENCOUNTER 2018-08-14 13:07 | Observation (INO) ==
[2018-08-14] MEDS ORDERED: Zolpidem Tartrate 5 MG Tablet PO PRN (15:00)
[2018-08-14] MEDS ORDERED: Acetaminophen 325 MG Tablet PO PRN (15:00)
[2018-08-14] MEDS ORDERED: Bisacodyl 10 MG Supp RECTAL PRN (15:00)
[2018-08-14] MEDS: Sod Chloride 0.9% Inj 1,000 ML IV.CONT SCH (16:16)
--- NOTE | 2018-08-14 17:00 | XR ---
EXAM DATE: 08/14/2018 12:00 AM EDT AGE/SEX: 67 years / Male INDICATIONS: Shortness of breath. CLINICAL DATA: This is the patient's initial encounter. Patient reports that signs and symptoms have been present for 1 day and indicates a pain score of 0/10. MEDICAL/SURGICAL HISTORY: Diabetes. Hypertension. Diverticulitis. Renal disease. AV fistula. Carcinoma, bladder. None. [place] [facility] [place]. . FINDINGS: A single AP view of the chest demonstrates the lungs to be symmetrically aerated without evidence of mass, infiltrate or effusion. The cardiomediastinal contours are mildly prominent with mildly tortuo us aorta. Osseous structures are intact. CONCLUSION: No acute findings. Mildly tortuous aorta. Mild cardiomegaly. Electronically signed by: Mario Miramontes MD 08/14/2018 4:58 PM EDT
--- NOTE | 2018-08-14 17:10 | P.HPNP ---
History of Present Illness Service: Transplant nephrology Primary Care Physician: UNKNOWN History of Present Illness: Patient is a 67-year-old -Turkish male with history of kidney transplant on 04/24/2018, it was a cadaveric kidney transplant, he had delayed graft function requiring hemodialysis, he has good return of the kidney functions maintained on Prograf 6 mg twice a day, CellCept 500 mg daily and prednisone 5 mg daily, he is having social issues and having difficulty to control his diabetes, eating wrong foods, driving long distances to [place] to meet his who is living there over the weekends, smoking cigarettes, despite our morning he continued to exhibit same behavior, he presented to the clinic this morning telling me that he was in [place] over the weekend and smoke up to 3 cigarettes while driving, he did not drink fluids as he was driving long distance, he presented with a creatinine of 1.82, his baseline creatinine is around 1.4. He is passing good amount of urine, his appetite is okay, patient did lose weight after the transplant, he has history of thyroid cancer in 2015 which was surgically removed. His calcium runs high at 11.6. - Diagnosis (1) Hypercalcemia (2) Acute renal failure (3) Dehydration (4) History of hypertension (5) Kidney transplant recipient (6) Diabetes Review of Systems Constitutional: Reports anorexia, Reports body ache(s), Reports lack of energy, Reports weight loss Eyes: Denies blind spots, Denies blurry vision, Denies bulging eyes, Denies change in vision, Denies double vision, Denies discharge, Denies dry eyes, Denies floaters, Denies irritation, Denies itchy eyes, Denies loss of vision, Denies pain, Denies requires corrective lenses, Denies sensitivity to light, Denies other Ears, Nose, Mouth, and Throat: Denies abnormal hearing, Denies bleeding gums, Denies bad breath, Denies change in voice, Denies dental pain, Denies difficulty swallowing, Denies dizziness, Denies dry mouth, Denies ear discharge , Denies ear pain, Denies facial pain, Denies headache(s), Denies hearing loss, Denies hoarseness, Denies lip swelling, Denies nosebleed, Denies mouth lesions, Denies mouth pain, Denies nasal congestion, Denies nasal discharge, Denies nasal obstruction, Denies nasal trauma, Denies neck lump, Denies neck pain, Denies nose pain, Denies pain with swallowing, Denies poor balance, Denies post nasal drip, Denies ringing in the ears, Denies sinus pain, Denies sinus pressure , Denies sore throat, Denies throat swelling, Denies tongue swelling, Denies other Respiratory: Denies change in phlegm color, Denies chest congestion, Denies cough, Denies coughing up blood, Denies excessive phlegm production, Denies pain on inspiration, Denies pain with cough, Denies shortness of breath, Denies shortness of breath with activity, Denies snoring, Denies stridor, Denies wheezing, Denies other Gastrointestinal: Reports change in bowel habits Genitourinary: Reports erectile dysfunction Musculoskeletal: Reports decreased muscle mass Skin/Breast: Reports other Neurologic: Reports weakness Hematologic/Lymphatic: Denies easy bleeding, Denies easy bruising, Denies enlarged lymph nodes, Denies other Allergic/Immunologic: Denies GI upset with certain foods, Denies hives, Denies itchy eyes, Denies lip swelling, Denies seasonal runny nose, Denies throat swelling, Denies tongue swelling, Denies wheezing, Denies other PMFSH - History History Provided By: Patient - Medical History Medical History: Medical History (Last Reviewed 08/14/18 @ 17:06 by Cesar Thomson MD) Diabetes mellitus type 2, diet-controlled (Chronic) End stage renal disease (Chronic) Renal osteodystrophy (Chronic) History of hepatitis C (Inactive) Diverticulosis (Chronic) History of bladder cancer (Inactive) History of thyroid cancer (Inactive) Hypertension - Surgical History Surgical History: Surgical History (Last Reviewed 08/14/18 @ 17:06 by Cesar Thomson MD) AV fistula Onset Date: ~2013 History of bladder surgery History of laparoscopic cholecystectomy Onset Date: ~2014 History of lithotripsy History of thyroidectomy Onset Date: ~2014 - Family History Family History: Family History (Last Reviewed 08/14/18 @ 17:06 by Cesar Thomson MD) Mother Family history of acute myocardial infarction Diabetes mellitus Father Family history of acute myocardial infarction - Social History I have reviewed the patient's Social History: Yes - Tobacco History Second Hand Smoke Exposure: No Smoking Status: Current some day smoker (Smokes 3 cigarettes on the weekend) Tobacco Type: Cigarettes Packs Per Day: 1 (1 PPD x 30 years) Years Smoked: 30 - Alcohol History How Often Do You Have a Drink Containing Alcohol: Never - Substance Use History Substance History: No History of Abuse - Immunization History Tetanus Immunization: Unsure Medications and Allergies Active Medications: Active Medications Acetaminophen (Tylenol) 650 mg PO Q4H PRN PRN Reason: Temp > 100.4 Al Hydroxide/Mg Hydroxide (Milk Of Magnesia Liq) 30 ml PO Q12H PRN PRN Reason: Mild Constipation Bisacodyl (Dulcolax Supp) 10 mg RECTAL DAILY PRN PRN Reason: SEVERE CONSITIPATION Calcitonin [place] (Miacalcin Inj) 100 unit SQ DAILY [facility] Carvedilol (Coreg) 12.5 mg PO BID MO Clonidine HCl (Catapres) 0.1 mg PO BID [facility] Ergocalciferol (Vitamin D2) 50,000 unit PO Q7D [facility] Glucagon (Glucagon Inj) 1 mg IM ONCE PRN PRN Reason: BG less then 60 Sodium Chloride (Ns Inj) 1,000 mls @ 100 mls/hr IV.CONT .Q10H [facility] Last Admin: 08/14/18 16:16 Dose: 100 mls/hr Insulin Aspart (Novolog Insulin Correctional Sugar Inj) 0 unit SQ AC MO; Protocol Insulin Detemir (Levemir Inj) 30 unit SQ HS [facility] Isosorbide Dinitrate (Isordil) 10 mg PO BID [facility] Lactulose (Lactulose Liq) 30 ml PO DAILY PRN PRN Reason: SEVERE CONSITIPATION Levothyroxine Sodium (Synthroid) 112 mcg PO DAILY@0600 [facility] Levothyroxine Sodium (Synthroid) 25 mcg PO DAILY@0600 [facility] Magnesium Oxide (Mag-Ox) 800 mg PO BID [facility] Mycophenolate Mofetil (Cellcept) 500 mg PO BID@0600,1800 [facility] Ondansetron HCl (Zofran Inj) 4 mg IV.PUSH Q6H PRN PRN Reason: NAUSEA OR VOMITING Pantoprazole Sodium (Protonix) 40 mg PO DAILY [facility] Potassium Phos/Sodium Phos (K-Phos Neutral) 500 mg PO BID [facility] Prednisone (Deltasone) 5 mg PO DAILY [facility] Tacrolimus (Prograf) 6 mg PO BID@0600,1800 [facility] Trimethoprim/Sulfamethoxazole (Bactrim Ds) 1 tab PO TUTHSA [facility] Valganciclovir (Valcyte) 450 mg PO EVERY OTHER DAY MO Zolpidem Tartrate (Ambien) 5 mg PO HS PRN PRN Reason: INSOMNIA Allergies Allergy/AdvReac Type Severity Reaction Status Date / Time No Known Allergies AdvReac Unknown None Uncoded 05/25/18 12:16 Home Medications Medication Instructions Recorded Confirmed Type cinacalcet [Sensipar] 90 mg PO DAILY 04/23/18 08/14/18 History levothyroxine 137 mcg PO 0600 04/23/18 08/14/18 History pravastatin 20 mg PO DAILY 04/23/18 08/14/18 History calcitonin (salmon) [Miacalcin] 08/14/18 08/14/18 History carvedilol [Coreg] 12.5 mg PO BID 08/14/18 08/14/18 History clonidine HCl 0.1 mg PO BID 08/14/18 08/14/18 History docusate sodium [Colace] 100 mg PO BID 08/14/18 08/14/18 History glimepiride 2 mg PO BID 08/14/18 08/14/18 History isosorbide dinitrate 10 mg PO BID 08/14/18 08/14/18 History magnesium oxide 400 mg PO TID 08/14/18 08/14/18 History multivitamin 1 tab PO QAM 08/14/18 08/14/18 History mycophenolate mofetil [CellCept] 500 mg PO QAM 08/14/18 08/14/18 History pantoprazole [Protonix] 40 mg PO DAILY 08/14/18 08/14/18 History potassium phosphate, monobasic 500 mg PO TID 08/14/18 08/14/18 History [K-Phos Original] prednisone 5 mg PO DAILY 08/14/18 08/14/18 History sulfamethoxazole-trimethoprim 800 mg PO QTUTHSA 08/14/18 08/14/18 History [Bactrim] tacrolimus [Prograf] 6 mg PO Q12H 08/14/18 08/14/18 History Exam Vital signs: Vital Signs 08/14/18 14:27 08/14/18 15:02 08/14/18 16:00 Temperature 97.6 F Pulse Rate 77 82 Respiratory Rate 16 Blood Pressure 136/80 Pulse Oximetry 100 Intake & Output 08/13/18 08/14/18 08/14/18 18:59 06:59 18:59 Weight 58.1 kg Other: Date of Last Bowel Movement 08/13/18 Weight On Admission 131 kg Narrative: GENERAL: Thinly built malnourished, well-developed patient. SKIN: Warm and dry. HEAD: Normocephalic. EYES: No scleral icterus. No injection or drainage. NECK: Supple, trachea midline. No JVD or lymphadenopathy. CARDIOVASCULAR: Regular rate and rhythm without murmurs, gallops, or rubs. RESPIRATORY: Breath sounds equal bilaterally. No accessory muscle use. GASTROINTESTINAL: Abdomen soft, non-tender, nondistended. Incision is well- healed on the right lower abdomen. EXTREMITIES: No edema NEUROLOGICAL: Awake, alert, and oriented x 3. Non-focal. Caprini VTE Risk Assessment Caprini VTE Risk Assessment: Moderate/High Risk (score >= 2) Caprini Risk Assessment Model: Point Value = 1 Point Value = 2 Point Value = 3 Point Value = 5 Age 41-60 Minor surgery BMI > 25 kg/m2 Swollen legs Varicose veins or History of unexplained or recurrent spontaneous Oral contraceptives or hormone replacement Sepsis (< 1 month) Serious lung disease, including pneumonia (< 1 month) Abnormal pulmonary function Acute myocardial infarction Congestive heart failure (< 1 month) History of inflammatory bowel disease Medical patient at bed rest Age 61-74 Arthroscopic surgery Major open surgery (> 45 min) Laparoscopic surgery (> 45 min) Malignancy Confined to bed (> 72 hours) Immobilizing plaster cast Central venous access Age >= 75 History of VTE Family history of VTE Factor V Leiden Prothrombin [id number] Lupus anticoagulant Anticardiolipin antibodies Elevated serum homocysteine Heparin-induced thrombocytopenia Other congenital or acquired thrombophilia Stroke (< 1 month) Elective arthroplasty Hip, pelvis, or leg fracture Acute spinal cord injury (< 1 month) Prophylaxis Regimen: Total Risk Factor Score Risk Level Prophylaxis Regimen 0-1 Low Early ambulation 2 Moderate Order ONE of the following: *Sequential Compression Device (SCD) *Heparin 5000 units SQ BID 3-4 Higher Order ONE of the following medications: *Heparin 5000 units SQ TID *Enoxaparin/Lovenox 40 mg SQ daily (WT < 150 kg, CrCl > 30 mL/min) *Enoxaparin/Lovenox 30 mg SQ daily (WT < 150 kg, CrCl > 10-29 mL/min) *Enoxaparin/Lovenox 30 mg SQ BID (WT < 150 kg, CrCl > 30 mL/min) AND/OR *Sequential Compression Device (SCD) 5 or more Highest Order ONE of the following medications: *Heparin 5000 units SQ TID (Preferred with Epidurals) *Enoxaparin/Lovenox 40 mg SQ daily (WT < 150 kg, CrCl > 30 mL/min) *Enoxaparin/Lovenox 30 mg SQ daily (WT < 150 kg, CrCl > 10-29 mL/min) *Enoxaparin/Lovenox 30 mg SQ BID (WT < 150 kg, CrCl > 30 mL/min) AND *Sequential Compression Device (SCD) Assessment and Plan - Assessment (1) Hypercalcemia Code(s): E83.52 - Hypercalcemia Status: Acute (2) Acute renal failure Code(s): N17.9 - Acute kidney failure, unspecified Status: Acute (3) Dehydration Code(s): E86.0 - Dehydration Status: Acute (4) History of hypertension Code(s): Z86.79 - Personal history of other diseases of the circulatory system Status: Chronic (5) Kidney transplant recipient Code(s): Z94.0 - Kidney transplant status Status: Acute Onset Date: ~ (6) Diabetes Code(s): E11.9 - Type 2 diabetes mellitus without complications Status: Acute - Plan Patient has some unexplained hypercalcemia we will get a bone scan, given his history of thyroid cancer and previous bladder cancer, screen for occult malignancy Check thyroglobulin level Controlled diabetes Dietitian consult IV hydration with normal saline for hypercalcemia Calcitonin Check kidney ultrasound for transplant Follow tacrolimus level He forgot to take his morning pills, discussed with nursing staff, patient continued to have issues and following instruction, controlling his diabetes, maintaining medications and taking proper dosage of medications In addition he has resumed smoking His prognosis is guarded Continue to monitor. check for Bone survey/Bone scan rule out occult malignancy. H&P: Quality - VTE Deep Vein Thrombosis/Pulmonary Embolism Present on Admission: No
[2018-08-14] MEDS: Calcitonin Salmon Inj 400 UNIT/2 ML Vial SQ SCH (17:45)
[2018-08-14] MEDS: Insulin NovoLOG Aspart Correctional Sugar Inj SQ SCH ×2 (17:45→20:59)
[2018-08-14] MEDS: Heparin - SQ 10,000 UNITS/ML Vial SQ SCH (20:19)
[2018-08-14] MEDS: Carvedilol 12.5 MG Tablet PO SCH (20:20)
[2018-08-14] MEDS: Magnesium Oxide 400 MG Tablet PO SCH (20:20)
--- NOTE | 2018-08-14 20:50 | US ---
EXAM DATE: 08/14/2018 12:00 AM EDT AGE/SEX: 67 years / Male INDICATIONS: Increased lab values. CLINICAL DATA: This is the patient's sequela encounter. Patient reports that signs and symptoms have been present for 1 day and indicates a pain score of 2/10. MEDICAL/SURGICAL HISTORY: Diabetes. Renal disease, end stage. Hepatitis C. Diverticulosis. B ladder cancer. Thyroid cancer. HTN. Cholecystectomy. AV fistula. Bladder surgery. Lithotripsy. COMPARISON: [facility] [place], RENAL TRANSPLANT W DOP, 05/05/2018. . MEASUREMENTS: Transplant Kidney:__11.1 x 5.4 x 5.5 cm Location:__Right lower quadrant Arcuate Arteries Resistive Index: Upper - 0.8 Mid - 0.8 Lower - 0.8 Main Renal Artery Velocity:__165.7 cm/sec Main Renal Vein:__Patent External Iliac Artery Velocity:__314.8 cm/sec External Iliac Vein:__Patent FINDINGS: Transplant Kidney: Normal echotexture and cortical thickness. No mass or hydronephrosis. No peritran splant fluid. Urinary Bladder: Within normal limits given the degree of distension. Other: None. CONCLUSION: 1. Normal, stable sonographic appearance of the renal transplant. 2. Resistive indices remain within the range of normal as well. Electronically signed by: Fernando Thomas MD 08/14/2018 8:49 PM EDT
[2018-08-14] MEDS: Potassium Phos/Sodium Phos 250 MG Tablet PO SCH (20:58)
[2018-08-14] MEDS ORDERED: Insulin Detemir Inj 1,000 UNIT/10 ML Vial SQ SCH (21:00)
--- NOTE | 2018-08-14 22:16 | XR ---
EXAM DATE: 08/14/2018 12:00 AM EDT AGE/SEX: 67 years / Male INDICATIONS: Bone survey, evaluate for Osteoporosis. CLINICAL DATA: This is the patient's initial encounter. Patient reports that signs and symptoms have been present for 1 day and indicates a pain score of 0/10. MEDICAL/SURGICAL HISTORY: Diabetes. Diverticulitis. Hypertension. Thyroid cancer. Renal dise ase. Carcinoma, bladder. Thyroidectomy. Lithotripsy. Cholecystectomy. Bladder surgery. Renal tra nsplant. AV fistula. COMPARISON: No prior exams available for comparison. FINDINGS: Bone survey was performed of the axial and appendicular skeleton. The upper extremities are unremark able. The lower extremities are demonstrate no abnormality. The spinal axis and pelvis are unremarka ble. The skull demonstrates normal mineralization and the paranasal sinuses are clear. The visualize d heart, lungs and abdominal structures are unremarkable. Bony mineralization is normal. Surgical clips in the right upper abdominal quadrant are characteristic of prior cholecystectomy. Den se atherosclerotic calcification is seen throughout the visualized vasculature. CONCLUSION: 1. Axial and appendicular skeleton is intact throughout with normal bony mineralization. 2. Dense atherosclerotic calcification throughout the visualized vasculature. 3. Patient is status post cholecystectomy. Electronically signed by: Fernando Thomas MD 08/14/2018 10:15 PM EDT
[2018-08-15] MEDS: Sod Chloride 0.9% Inj 1,000 ML IV.CONT SCH ×2 (02:54→15:05)
[2018-08-15 05:41] LABS: Prothrombin Time 10.6 sec (9.8-11.6)
[2018-08-15 05:45] LABS: Baso % (Auto) 0.7 % (0.0-2.0); Eos # (Auto) 0.1 th/mm3 (0.0-0.4); Eos % (Auto) 1.5 % (0.0-4.0); Hematocrit 37.1 % (39.0-51.0); Hemoglobin 12.7 gm/dL (13.0-17.0); Lymph % (Auto) 19.5 % (9.0-44.0); Mean Corpuscular HGB Conc 34.4 % (32.0-36.0); Mean Corpuscular Hemoglobin 33.7 pg (27.0-34.0); Mean Corpuscular Volume 98.1 fL (80.0-100.0); Mean Platelet Volume 9.5 fL (7.0-11.0); Mono # (Auto) 0.4 th/mm3 (0.0-0.9); Mono % (Auto) 8.6 % (0.0-8.0); Neut # (Auto) 3.5 th/mm3 (1.8-7.7); Neut % (Auto) 69.7 % (16.0-70.0); Platelet Count 191 th/mm3 (150-450); Red Blood Count 3.78 mil/mm3 (4.50-5.90); Red Cell Distribution Width 14.1 % (11.6-17.2)
[2018-08-15] MEDS ORDERED: Levothyroxine 112 MCG Tablet PO SCH (06:00)
[2018-08-15 06:21] LABS: Alanine Aminotransferase 15 U/L (12-78); Albumin 3.3 g/dL (3.4-5.0); Alkaline Phosphatase 133 U/L (45-117); Anion Gap 8 meq/L (5-15); Aspartate Aminotransferase 19 U/L (15-37); Blood Urea Nitrogen 27 mg/dL (7-18); Chloride 112 meq/L (98-107); Glomerular Filtration Rate 66 mL/min (>89); Potassium 3.9 meq/L (3.5-5.1); Sodium 145 meq/L (136-145); Total Protein 6.5 g/dL (6.4-8.2)
[2018-08-15 06:26] LABS: Erythrocyte Sedimentation Rate 6 mm/hr (0-20)
[2018-08-15 06:27] LABS: Glucose,Random 49 mg/dL (74-106)
[2018-08-15] MEDS ORDERED: predniSONE 5 MG Tablet PO SCH (09:00)
[2018-08-15] MEDS: Carvedilol 12.5 MG Tablet PO SCH (09:04)
[2018-08-15] MEDS: Magnesium Oxide 400 MG Tablet PO SCH (09:06)
[2018-08-15] MEDS: Potassium Phos/Sodium Phos 250 MG Tablet PO SCH (09:06)
[2018-08-15] MEDS: Heparin - SQ 10,000 UNITS/ML Vial SQ SCH (09:07)
[2018-08-15] MEDS: Insulin NovoLOG Aspart Correctional Sugar Inj SQ SCH ×2 (09:39→15:05)
[2018-08-15] MEDS: Calcitonin Salmon Inj 400 UNIT/2 ML Vial SQ SCH (10:52)
[2018-08-15 11:15] VITALS: RESP 16
--- NOTE | 2018-08-15 13:12 | NM ---
INDICATIONS: Metastatic disease. Thyroid cancer. CLINICAL DATA: This is the patient's initial encounter. Patient reports that signs and symptoms have been present for 1 day and indicates a pain score of 2/10. MEDICAL/SURGICAL HISTORY: Carcinoma, bladder. Diabetes mellitus type II. Hypertension. Thyroi dectomy. Cholecystectomy. COMPARISON: No prior exams available for comparison. No external comparison. TECHNIQUE: . . Whole body bone scan was performed at 2-3 hours. No correlative bone scan available for comparison. DOSE: 30.0 mCi Tc99m MDP IV FINDINGS: There is mild focal uptake involving the right 10th rib has the appearance of an old fracture. Minima l asymmetrical uptake is seen involving the inferior margins of the SI joint on the right most likely chronic and degenerative. There is of the examination is unremarkable. . CONCLUSION: 1. Probable old fracture of the right 10th rib and mild uptake involving the inferior margins of the right SI joint most of the chronic and degenerative without definite evidence for metastatic disease . Electronically signed by: Adan Britton MD 08/15/2018 1:11 PM EDT
[2018-08-15 15:41] VITALS: BP 140/67; TEMP 97.9; O2SAT 96
[2018-08-15] MEDS ORDERED: Dextrose 50% in Water 50 ML Vial IV.PUSH PRN (18:29)
--- NOTE | 2018-08-15 18:41 | P.DS ---
Date of admission: 08/14/18 13:47 Primary care physician: UNKNOWN Attending physician on discharge: Cesar Thomson Anticipated date of discharge: 08/15/18 Brief History from admission: Patient is a 67-year-old -[place] male with history of kidney transplant on 04/24/2018, it was a cadaveric kidney transplant, he had delayed graft function requiring hemodialysis, he has good return of the kidney functions maintained on Prograf 6 mg twice a day, CellCept 500 mg daily and prednisone 5 mg daily, he is having social issues and having difficulty to control his diabetes, eating wrong foods, driving long distances to [place] to meet his who is living there over the weekends, smoking cigarettes, despite our morning he continued to exhibit same behavior, he presented to the clinic this morning telling me that he was in [place] over the weekend and smoke up to 3 cigarettes while driving, he did not drink fluids as he was driving long distance, he presented with a creatinine of 1.82, his baseline creatinine is around 1.4. He is passing good amount of urine, his appetite is okay, patient did lose weight after the transplant, he has history of thyroid cancer in 2014 which was surgically removed. His calcium runs high at 11.6. Patient update on day of discharge: Patient acute renal failure resolved with hydration creatinine down to 1.3, his calcium also dropped with hydration, parathyroid hormone is high He is told to continue the Sensipar Bone scan was done 1. Probable old fracture of the right 10th rib and mild uptake involving the inferior margins of the right SI joint most of the chronic and degenerative without definite evidence for metastatic disease. Patient is told to drink plenty of fluids take his medication on timely manner, continue with prednisone, Prograf and CellCept, his blood sugar did decrease and was low at times except in the evening We will continue to monitor as outpatient. He will be followed up in our transplant clinic on Tuesday. DS: Diagnosis - Discharge Diagnosis (1) Hypercalcemia Status: Acute Diagnosis: Secondary (2) Acute renal failure Status: Acute Diagnosis: Principal (3) Dehydration Status: Acute Diagnosis: Principal (4) History of hypertension Status: Chronic Diagnosis: Secondary (5) Kidney transplant recipient Status: Acute Diagnosis: Principal (6) Diabetes Status: Acute DS: Summary Hospital Course: 1. Probable old fracture of the right 10th rib and mild uptake involving the inferior margins of the right SI joint most of the chronic and degenerative without definite evidence for metastatic disease. Calcium normal Creatinine declined Blood glucose improved Patient is told that his kidney ultrasound did not reveal obstructive uropathy He needs to take his medication on a timely manner, drink water and maintain his blood glucose. Follow-up at transplant clinic on Tuesday. - Time Spent with Patient Total time spent providing and/or coordinating discharge services: Greater than 30 minutes Exam Vital signs: Vital Signs 08/14/18 19:00 08/14/18 20:00 08/14/18 21:00 Temperature 97.4 F L Pulse Rate 79 76 76 Respiratory Rate 20 Blood Pressure 181/93 H Pulse Oximetry 100 08/14/18 22:00 08/14/18 23:00 08/15/18 00:00 Temperature 97.5 F L Pulse Rate 71 76 77 Respiratory Rate 18 Blood Pressure 153/74 H Pulse Oximetry 100 08/15/18 01:00 08/15/18 02:00 08/15/18 03:00 Temperature 97.5 F L Pulse Rate 72 72 73 Respiratory Rate 18 Blood Pressure 158/72 H Pulse Oximetry 100 08/15/18 04:00 08/15/18 05:00 08/15/18 06:00 Temperature Pulse Rate 68 70 67 Respiratory Rate Blood Pressure Pulse Oximetry 08/15/18 07:00 08/15/18 08:00 08/15/18 09:00 Temperature 98.2 F Pulse Rate 77 82 84 Respiratory Rate 18 Blood Pressure 188/82 H Pulse Oximetry 08/15/18 10:00 08/15/18 11:00 08/15/18 12:00 Temperature Pulse Rate 74 74 79 Respiratory Rate 16 Blood Pressure 137/67 Pulse Oximetry 08/15/18 13:00 08/15/18 14:00 08/15/18 15:00 Temperature 97.9 F Pulse Rate 84 79 76 Respiratory Rate Blood Pressure 140/67 Pulse Oximetry 96 08/15/18 16:00 08/15/18 17:00 Temperature Pulse Rate 76 80 Respiratory Rate Blood Pressure Pulse Oximetry Intake & Output 08/14/18 08/15/18 08/15/18 18:59 06:59 18:59 Intake Total 480 / 480 1480 / 1480 1480 / 1480 Output Total 450 / 450 1350 / 1350 1350 / 1350 Balance 30 / 30 130 / 130 130 / 130 Weight 58.1 kg 58 kg Intake: IV 1000 / 1000 1000 / 1000 NS Inj 1,000 ML @ 100 mls/hr IV 1000 / 1000 1000 / 1000 .CONT .Q10H MO Rx#:[id number] Oral 480 / 480 480 / 480 480 / 480 Output: Urine 450 / 450 1350 / 1350 1350 / 1350 Other: Date of Last Bowel Movement 08/13/18 08/13/18 08/13/18 Weight On Admission 131 kg Narrative: GENERAL: Thinly built malnourished, well-developed patient. SKIN: Warm and dry. HEAD: Normocephalic. EYES: No scleral icterus. No injection or drainage. NECK: Supple, trachea midline. No JVD or lymphadenopathy. CARDIOVASCULAR: Regular rate and rhythm without murmurs, gallops, or rubs. RESPIRATORY: Breath sounds equal bilaterally. No accessory muscle use. GASTROINTESTINAL: Abdomen soft, non-tender, nondistended. Incision is well- healed on the right lower abdomen. EXTREMITIES: No edema NEUROLOGICAL: Awake, alert, and oriented x 3. Non-focal. Results Procedures completed during hospitalization: Bone scan Labs on day of discharge: Labs from last 24 hours 08/15/18 08/15/18 08/15/18 17:34 08:40 07:52 WBC RBC Hgb Hct MCV MCH MCHC RDW Plt Count MPV Neut % (Auto) Lymph % (Auto) Rogers % (Auto) Eos % (Auto) Baso % (Auto) Neut # (Auto) Lymph # (Auto) Rogers # (Auto) Eos # (Auto) Baso # (Auto) WBC Differential Differential Comment ESR PT INR Sodium Potassium Chloride Carbon Dioxide Anion Gap BUN Creatinine Estimated GFR POC Glucose 240 H 85 56 L Random Glucose Calcium Total Bilirubin AST ALT Alkaline Phosphatase Total Protein Albumin PSA Screen Thyroglobulin PTH Intact Tacrolimus Thyroglobulin Antibody 08/15/18 08/15/18 08/15/18 06:53 04:24 04:24 WBC RBC Hgb Hct MCV MCH MCHC RDW Plt Count MPV Neut % (Auto) Lymph % (Auto) Rogers % (Auto) Eos % (Auto) Baso % (Auto) Neut # (Auto) Lymph # (Auto) Rogers # (Auto) Eos # (Auto) Baso # (Auto) WBC Differential Differential Comment ESR PT INR Sodium 145 Potassium 3.9 Chloride 112 H Carbon Dioxide 25.0 Anion Gap 8 BUN 27 H Creatinine 1.32 H Estimated GFR 66 L POC Glucose 71 Random Glucose 49 L* Calcium 10.0 D Total Bilirubin 0.4 AST 19 ALT 15 Alkaline Phosphatase 133 H Total Protein 6.5 D Albumin 3.3 L PSA Screen 0.68 Thyroglobulin PTH Intact 688.0 H Tacrolimus Thyroglobulin Antibody 08/15/18 08/15/18 08/15/18 04:24 04:24 04:24 WBC 5.0 RBC 3.78 L Hgb 12.7 L Hct 37.1 L MCV 98.1 MCH 33.7 MCHC 34.4 RDW 14.1 Plt Count 191 MPV 9.5 Neut % (Auto) 69.7 Lymph % (Auto) 19.5 Rogers % (Auto) 8.6 H Eos % (Auto) 1.5 Baso % (Auto) 0.7 Neut # (Auto) 3.5 Lymph # (Auto) 1.0 Rogers # (Auto) 0.4 Eos # (Auto) 0.1 Baso # (Auto) 0.0 WBC Differential . Differential Comment Auto diff final ESR 6 PT 10.6 INR 1.0 Sodium Potassium Chloride Carbon Dioxide Anion Gap BUN Creatinine Estimated GFR POC Glucose Random Glucose Calcium Total Bilirubin AST ALT Alkaline Phosphatase Total Protein Albumin PSA Screen Thyroglobulin Pending PTH Intact Tacrolimus Thyroglobulin Antibody Pending 08/15/18 08/14/18 04:24 20:51 WBC RBC Hgb Hct MCV MCH MCHC RDW Plt Count MPV Neut % (Auto) Lymph % (Auto) Rogers % (Auto) Eos % (Auto) Baso % (Auto) Neut # (Auto) Lymph # (Auto) Rogers # (Auto) Eos # (Auto) Baso # (Auto) WBC Differential Differential Comment ESR PT INR Sodium Potassium Chloride Carbon Dioxide Anion Gap BUN Creatinine Estimated GFR POC Glucose 127 H Random Glucose Calcium Total Bilirubin AST ALT Alkaline Phosphatase Total Protein Albumin PSA Screen Thyroglobulin PTH Intact Tacrolimus 8.5 Thyroglobulin Antibody - Impressions ITS Impressions Bone Osseous Survey 08/14/18 00:00 CONCLUSION: 1. Axial and appendicular skeleton is intact throughout with normal bony mineralization. 2. Dense atherosclerotic calcification throughout the visualized vasculature. 3. Patient is status post cholecystectomy. Chest X-Ray 08/14/18 00:00 CONCLUSION: No acute findings. Mildly tortuous aorta. Mild cardiomegaly. Renal Ultrasound 08/14/18 00:00 CONCLUSION: 1. Normal, stable sonographic appearance of the renal transplant. 2. Resistive indices remain within the range of normal as well. Bone Scan Nuclear Medicine 08/15/18 00:00 CONCLUSION: 1. Probable old fracture of the right 10th rib and mild uptake involving the inferior margins of the right SI joint most of the chronic and degenerative without definite evidence for metastatic disease. Discharge Plan - Discharge Disposition Patient Disposition: 01 Discharge Home - Discharge Condition Condition: Good - Discharge Order Discharge Orders: Discharge Order (Routine); Ordered 08/15/18 Ordered By: Cesar Thomson - Discharge Details Anticipated Discharge Date: 08/15/18 Discharge Comment: home - Physicians Team Primary Care Provider: UNKNOWN, Attending Provider: Cesar Thomson - Rxs /Orders / Referrals /Forms Prescriptions: New ergocalciferol (vitamin D2) 50,000 unit Capsule 50,000 unit PO Q7D RF: 0 insulin aspart U-100 [Novolog U-100 Insulin aspart] 100 unit/mL Solution 0 unit subcut Q6HR RF: 0 insulin detemir U-100 [Levemir U-100 Insulin] 100 unit/mL Solution 30 unit subcut HS RF: 0 valganciclovir [Valcyte] 450 mg Tablet 450 mg PO EVERY OTHER DAY RF: 0 Continue calcitonin (salmon) [Miacalcin] 200 unit/mL Solution carvedilol [Coreg] 12.5 mg Tablet 12.5 mg PO BID cinacalcet [Sensipar] 90 mg Tablet 90 mg PO DAILY clonidine HCl 0.1 mg Tablet 0.1 mg PO BID docusate sodium [Colace] 100 mg Capsule 100 mg PO BID glimepiride 1 mg tablet 2 mg PO BID isosorbide dinitrate 10 mg Tablet 10 mg PO BID levothyroxine 200 mcg Tablet 137 mcg PO 0600 magnesium oxide 400 mg (241.3 mg magnesium) Tablet 400 mg PO TID multivitamin Tablet 1 tab PO QAM mycophenolate mofetil [CellCept] 500 mg Tablet 500 mg PO QAM pantoprazole [Protonix] 40 mg Tablet,Delayed Release (Dr/Ec) 40 mg PO DAILY potassium phosphate, monobasic [K-Phos Original] 500 mg Tablet,Soluble 500 mg PO TID pravastatin 20 mg Tablet 20 mg PO DAILY prednisone 5 mg Tablet 5 mg PO DAILY sulfamethoxazole-trimethoprim [Bactrim] 400-80 mg Tablet 800 mg PO QTUTHSA tacrolimus [Prograf] 1 mg Capsule 6 mg PO Q12H tamsulosin 0.4 mg Capsule,Extended Release 24hr 0.4 mg PO DAILY Qty: 30 RF: 1 (DME) pen needle, diabetic [BD Ultra-Fine Selina Pen Needle] 32 gauge x 5/32" Needle Qty: 10 RF: 6 Discontinued amlodipine 10 mg Tablet 10 mg PO DAILY calcium carbonate 200 mg calcium (500 mg) Tablet,Chewable 500 mg CHEW BID@09,16 Qty: 30 RF: 0 carvedilol 25 mg Tablet 25 mg PO BID clonidine HCl 0.2 mg Tablet 0.2 mg PO TID docusate sodium [DOK] 100 mg Capsule 100 mg PO BID Qty: 60 RF: 0 hydralazine 100 mg Tablet 100 mg PO Q8H Qty: 90 RF: 10 insulin aspart U-100 [Novolog Flexpen U-100 Insulin] 100 unit/mL Insulin Pen See Protocol SUB-Q ACHS CORRECT SUGARS Qty: 1 RF: 6 labetalol 200 mg Tablet 200 mg PO BID Qty: 30 RF: 6 mycophenolate mofetil [CellCept] 500 mg Tablet 1,000 mg PO BID@0600,1800 RF: 0 nystatin 100,000 unit/mL Suspension 5 ml SWISH-SWAL QID Qty: 120 RF: 12 pantoprazole 40 mg Tablet,Delayed Release (Dr/Ec) 40 mg PO DAILY RF: 0 prednisone 20 mg Tablet 20 mg PO DAILY RF: 0 sucroferric oxyhydroxide [Velphoro] 500 mg Tablet,Chewable 500 mg PO TID Qty: 90 sulfamethoxazole-trimethoprim 800-160 mg Tablet 1 tab PO TuThSa 90 Days RF: 2 tacrolimus [Prograf] 5 mg Capsule 5 mg PO BID@0600,1800 RF: 0 valganciclovir [Valcyte] 450 mg Tablet 450 mg PO TuTh Qty: 30 RF: 5 Referrals: UNKNOWN, [Primary Care Provider] - See Instructions - Post Discharge Care Plan Care Plan Goals: follow at Transplant office
[2018-08-15] MEDS ORDERED: Insulin NovoLOG Aspart Correctional Sugar Inj SQ SCH (18:45)
[2018-08-15 18:58] VITALS: PULSE 82
--- NOTE | 2018-08-17 01:52 | ECG ---
Date Performed: 08/14/2018 Time Performed: 16:04:36 PTAGE: 67 years EKG: Sinus rhythm with 1st degree A-V block Left axis deviation LVH with secondary repolarization abnormality Anterola teral ST-T changes may be due to hypertrophy and/or ischemia Abnormal ECG PREVIOUS TRACING : 04/24/2018 00.14 Compared to previous tracing, now with LVH criteria and ST /T wave changes possibly due to LVH or ischemia DOCTOR: Marcellus Erazo Interpretating Date/Time 08/17/2018 01:52:40
== END 2018-08-15 19:30 | disposition home or self-care (01) ==
LOC: HCPC 13:47 → INTOOBSV 13:47
PROVIDERS: ADMIT Internal Medicine Nephrology; ATTEND Internal Medicine Nephrology